=== PATIENT | female | born 1975 | race Two or more races ===

== ENCOUNTER 2020-12-17 10:32 | Outpatient (AMBR) | payer MEDICAID, SELFPAY ==
--- NOTE | 2020-12-15 09:56 | PT.OIERPT ---
PT OP Initial Eval Patient Information Visit Reasons: RIGHT KNEE POST OP Medical Diagnosis: Z96.657 Treatment Dx #1: s/p R TKA Start of Care: 12/15/20 Date of Onset: 09/25/20 Initial Assessment Subjective Pt is 45 yr old female s/p R TKA about 10 weeks ago presents to therapy ambulating without assistive device. She reports a pulling on the back of the knee and pain and she points to the medial and lateral joint lines and below the incision. The knee swells up toward the end of the day. PMH: chronic pain syndrome, DJD B knees Pt goal: to bend the knee better and for it not to swell Objective R knee AROM: Extension: full Flexion 92 deg Strength MMT Quads: 4-/5 Hamstrings: 4-/5 SLR: 75 deg Incision: clean, no redness, drainage Assessment Pt presentation consistent with post op R TKA with decreased knee flexion ROM and strength. Pt has decreased ability to squat and has quad weakness. Pt requires skilled therapy to improve knee flexion ROM and quad strength and has fair rehab potential potentially limited by adhesions and pain at end-range. She may benefit from static progressive ROM device to improve flexion ROM. Short Term and Internet Assessor Goals 1. Ind with HEP 2. Improved knee flexion ROM to 115 deg 3. Improved quad and hamstring strength to 4+/5 4. Pt will squat to 50% depth x10 with min knee pain Treatment Plan 1. Manual therapy 2. Therex 3. Modalities as indicated, moist heat, ice, estim Frequency and Duration 2x a week for 8 weeks Certification Dates: 12/15/20 to 03/17/21 Office Procedures PT Procedures PT Date of Service: 12/15/20 OP PT Eval Mod Complex 30 minutes: Yes
--- NOTE | 2020-12-17 18:33 | PT.ODAYNRPT ---
PT Outpatient Daily Note Date of Service: 12/17/20 OP Daily Note Visit Reasons: RIGHT KNEE POST OP Outpatient Physical Therapy Treatment Date: 12/17/20 Subjective: Pt reports that the back of the knee and gastrocs feel tight Objective: See F/S for therex MT: STM posterior knee and proximal gastrocs, PPM knee flexion to first resistance x12' total Assessment: Pt has moderate tissue irritability with therex and manual therapy with overpressure into knee flexion. Plan: Continue per POC Length of Time (minutes) of Treatment: 30 Minutes Office Procedures PT Procedures PT Date of Service: 12/15/20 OP PT Eval Mod Complex 30 minutes: Yes PT Procedures PT Date of Service: 12/17/20 Therapeutic Exercise 15 minutes: Yes Manual Winch Operator 15 minutes: Yes
== END 2021-01-12 23:59 | disposition home or self-care (01) ==
PROVIDERS: PCP Physician Assistant; Referring Provider Physician Assistant; Visit Provider Physician Assistant
DX: M25.561 Pain in right knee (principal); M62.81 Muscle weakness (generalized); G89.4 Chronic pain syndrome
CPT/HCPCS: 97110; 97140; 97162

== ENCOUNTER 2024-03-26 14:17 | Outpatient (AMB) | payer MEDICARE, MEDICAID, SELFPAY ==
[2024-03-26 14:39] VITALS: BP 159/103; PULSE 80; RESP 18; TEMP 36.2; O2SAT 97; BMI 41.7
--- NOTE | 2024-03-26 14:39 | ORTHONT_ITS ---
Vital signs 03/26/24 14:39 Height 1.68 m Height Method Stated Weight 117.707 kg Weight Measurement Method Standing Scale BMI 41.7 BP 159/103 H Blood Pressure Source Automatic Cuff Blood Pressure Location Right Upper Arm Position Sitting Respiration 18 Pulse 80 Pulse Source Monitor Temp 97.2 F Temp Source Temporal Artery Scan Pulse Oximetry (%) 97 Oxygen Delivery Method Room Air Med/Allergies Allergies & Medications Allergies cat dander Allergy (Severe, Verified 03/26/24 14:40) Difficulty Breathing Medication Reconciliation alprazolam 0.5 mg tablet (Xanax) 0.5 mg PO BID 07/18/20 [History Confirmed 03/26/24] omeprazole 40 mg capsule,delayed release 40 mg PO AC 08/31/21 [History Confirmed 03/26/24] duloxetine 30 mg capsule,delayed release (Cymbalta) 30 mg PO BID 08/22/22 [History Confirmed 03/26/24] prazosin 1 mg capsule 1 mg PO QPM 05/29/23 [History Confirmed 03/26/24] pregabalin 150 mg capsule (Lyrica) 150 mg PO TID 05/29/23 [History Confirmed 03/26/24] acetaminophen 500 mg tablet (Acetaminophen Extra Strength) 1,000 mg (2 x 500 mg) PO Q6H PRN pain #90 tabs 08/30/23 [Rx Confirmed 03/26/24] aspirin 81 mg tablet,delayed release 81 mg PO BID #60 tabs 08/30/23 [Rx Confirmed 03/26/24] doxycycline hyclate 100 mg tablet 100 mg PO BID #14 tabs 08/30/23 [Rx Confirmed 03/26/24] gabapentin 300 mg capsule 300 mg PO .qhs #30 caps 08/30/23 [Rx Confirmed 03/26/24] sennosides 8.6 mg-docusate sodium 50 mg tablet (Senna-S) 1 tab-cap PO QDAY #30 tabs 08/30/23 [Rx Confirmed 03/26/24] sulfamethoxazole 800 mg-trimethoprim 160 mg tablet (Bactrim DS) 1 tab PO BID #14 tabs 10/09/23 [Rx Confirmed 03/26/24] sulfamethoxazole 800 mg-trimethoprim 160 mg tablet (Bactrim DS) 1 tab PO Q12H #20 tabs 10/10/23 [Rx Confirmed 03/26/24] naproxen 500 mg tablet 500 mg PO BID #60 tabs 12/12/23 [Rx Confirmed 03/26/24] tramadol 50 mg tablet 50 mg PO Q8H PRN pain #21 tabs 03/05/24 [Rx Confirmed 03/26/24] acetaminophen 300 mg-codeine 30 mg tablet 1 tab PO Q6H PRN pain #28 tabs 03/26/24 [Rx Confirmed 03/26/24] Subjective Visit Visit for: follow up visit and knee Immunization / Flu Flu Vaccine in the Last 12 Months: No Flu Vaccine Exclusion Criteria: No Exclusion Criteria History of Present Illness Chief complaint: LEFT KNEE PAIN Lisa calls earlier today after a fall. She reports significant knee pain. We got x-rays and it showed recurrent dislocation of her left knee. She is a history of patellar instability. We sent her Tylenol 3 to her pharmacy. The pharmacist refused to fill this for some reason. They stated it was because she was on stronger medication after surgery. We discussed with her that she needs a referral to a university or tertiary care center and is have had quite a little bunch of issues with her. Initially she had issues with compliance and she is desperate for another option. Pain Pain level (0-10): 10 Pain duration: ALL DAY Pain location: anterior Pain quality: sharp, dull, aching, burning, shocking, electric and tingling Pain timing: increases with activity Ambulatory data Ambulatory device: cane Treatments Improvement with previous injections: No Improvement with PT: No Improvement with NSAIDS: n/a Review of Systems Review of Systems: All systems negative unless otherwise noted in HPI. Exam Exam Patient is in no acute distress and is cooperative with the examination today. Patient has a normal mood and affect. Breathing is nonlabored. In no respiratory distress. Bilateral extremities were evaluated and demonstrates sensation intact to light touch. Palpable pedal pulses are present. No significant edema is present. Left knee incision is clean dry and intact. Her knee tracks centrally. She is having range of motion from 0 to 90 degrees. She has increased lateral patellar translation compared to before. The patella Is dislocated and can be relocated with a medial directed force Assessment and Plan Problem List (1) Knee instability: Status: Acute Plan: Patient is a 48-year-old female with knee instability particular of her patella. She underwent a hinged knee replacement for global instability of her knee. Her patella was dislocated at that time. She did well for 4 to 6 weeks and unfo rtunately dislocated. We tried a medial implication and advancement of her quad. She was noncompliant with Immobilization instructions and subsequently dislocated. We have been trying to get her to refer to a university center. I do not have many other options. She already has a hinged knee replacement in her I am hesitant to do a more extreme surgery given her age. I am sending her to a [facility] for a another. (2) Status post total left knee replacement: Status: Acute Office Procedures GNS Level of Care Nursing/Assessment Patient Status: Established Patient Nursing Assessment/Reassesment: Medication Reconciliation, Update PMH in EMR and Vital Signs Coordination of Care: Complex Care and Chronic Disease 1-5, Education Complex Pt/Fam, Consent,records obtained, informed consent, Results/Orders obtained and Staff clarify orders Established Patient Charge Established Patient Point Assignment: 95 Established Patient Point Charge: EP Level 3 (80-115) Past Medical History Past Medical History Have you ever been diagnosed with any of the following: Neurological Problems Cerebrovascular Accident (CVA): No Transient Ischemic Attacks (TIA): No Parkinson's Disease: No Brain Tumor: No Meningitis: No Seizures: No Cerebral Palsy: No Amyotrophic Lateral Sclerosis (ALS/Bhumika Gehrig's): No Paralysis: No Peripheral Neuropathy: No Torres's Palsy: No Subdural Hematoma: No Head Trauma: No Spinal Cord Injury: No Traumatic Brain Injury: No Cardiology Problems Myocardial Infarction: No Cardiac Arrhythmia: No Atrial Fibrillation: No Angina: No Heart Murmur: No Coronary Artery Disease: No Atherosclerotic Heart Disease: No Peripheral Vascular Disease: No Hypercholesterolemia: No Aneurysm: No Congestive Heart Failure: No Congenital Heart Disease: No Valvular Heart Disease: No Rheumatic Fever: No Cardiomyopathy: No Edema: No Pericarditis: No Cellulitis: No Deep Vein Thrombosis: No Hypertension: No Varicose Veins: No Respiratory Problems Chronic Obstructive Pulmonary Disease (COPD): No Asthma: Yes Pneumonia: No Tuberculosis: No Pulmonary Embolism: No Sleep Apnea: No Smoking: Yes Smoking Cessation Counseling: Yes Smoking Exposure: Yes Tobacco Use: Yes Stomache/Intestinal Problems Hepatitis: No Cirrhosis: No Pancreatitis: No Celiac Disease: No Gall Bladder Disease: No Gastrointestinal Bleed: No Esophageal Varices: No Cui's Esophagus: No Colitis: No Ulcerative Colitis: No Diverticulitis: No Ulcer: No Colorectal Cancer: No Irritable Bowel: No Crohn's Disease: No Obstructive Bowel: No Hiatal Hernia: No Hemorrhoids: No Gastroesophageal Reflux Disease: Yes Obesity: Yes Genital/Urinary Problems Renal Disease: No Kidney Stones: Yes Polycystic Kidney Disease: No Neurogenic Bladder: No Inguinal Hernia: No Dialysis: No Prostate Cancer: No Reproductive Problems Breast Cancer: No Endometriosis: No Genital Herpes: No Gonorrhea: No Pelvic Inflammatory Disease: No Previous Pregnancies: Yes Syphilis: No Testicular Cancer: No Uterine Prolapse: No Musculoskeletal Problems Muscular Dystrophy: No Myasthenia Gravis: No Marfan's Syndrome: No Bone Cancer: No Arthritis: Yes Rheumatoid Arthritis: No Osteoporosis: No Degenerative Disk Disease: Yes Gout: No Carpal Tunnel Syndrome: No Fibromyalgia: No Fractures: Yes Degenerative Joint Disease: Yes Osteomyelitis: No Poliovirus: No Head,Eye,Nose,Throat Problems Cataracts: No Glaucoma: No Blind: No Retinal Detachment: No Macular Degeneration: No Chronic Ear Infections: No Eye Prosthesis: No Endocrine Problems Diabetes Mellitus Type 1: No Diabetes Mellitus Type 2: No Hypoglycemia: No [place]'s Syndrome: No Alma's Disease: No Hyperthyroidism: No Hypothyroidism: No Parathyroid Disease: No Pituitary Disease: Yes Systemic Lupus Erythematosus: No Syndrome of Inappropriate Antidiuretic Hormone: No Adrenal Disease: No Graves' Disease: No Blood Problems Anemia: No Leukemia: No Hemophilia: No Thalassemia: No Sickle Cell Disease: No Clotting Problems: No Psychologic Problems Schizophrenia: No Recreational Drug Use: No Bipolar Disorder: No Depression: No Anxiety: Yes Behavior Problems: No Self-Mutilation: No Attention Deficit Disorder: No Attention Deficit Hyperactivity Disorder: No Depression: No Post Traumatic Stress Disorder: Yes Other Problems Hospitalization: Yes Down Syndrome: No Autism: No Developmental Delay: No Shingles: No Falls: No Blood Transfusions: No Blood Transfusion Reaction: No Anesthesia Reactions: No Organ Transplant: No Chemotherapy: No Radiation Therapy: No Hyperbaric Therapy: No MRSA: No VRSA: No Vancomycin-Resistant Enterococci: No Human Immunodeficiency Virus (HIV): No Chicken Pox: Yes Measles: No Mumps: No Rubella (Hebrew Measles): No Pertussis: No Clostridium Difficile: No Cancer: No Cervical Cancer: No Lung Cancer: No Ovarian Cancer: No Surgical History Carotid Endarterectomy: No Coronary Artery Bypass Graft: No Valve Replacement: No Hysterectomy: Yes Pacemaker: No Thyroidectomy: No
== END 2024-03-26 15:07 | disposition home or self-care (01) ==
LOC: HODSRG 14:17
PROVIDERS: PCP Family Medicine; Referring Provider Family Medicine; Supervising Provider Orthopaedic Surgery Adult Reconstructive Orthopaedic Surgery; Visit Provider Orthopaedic Surgery Adult Reconstructive Orthopaedic Surgery
DX: M25.369 Other instability, unspecified knee (principal); S83.10 Unspecified subluxation and dislocation of knee; X58.XXXD Exposure to other specified factors, subsequent encounter; Z96.652 Presence of left artificial knee joint
CPT/HCPCS: 99213; G0463

== ENCOUNTER 2024-05-27 10:59 | Emergency (ER) | payer MEDICARE, MEDICAID, SELFPAY ==
[2024-05-27 11:22] VITALS: BP 149/98; PULSE 68; RESP 20; TEMP 37; O2SAT 98; BMI 40.6
--- NOTE | 2024-05-27 11:22 | XR_ITS ---
Examination: CT abdomen and pelvis without contrast. Coronal 3-D reconstructions. Sagittal 2-D reconstructions. Date and time of exam:May 27, 2024 at 1257 hours Comparison April 03, 2022 INDICATIONS: Onset left-sided flank pain beginning today, diagnosis kidney stones on CT abdomen pelvis April 03, 2022 CTDI: vol (mGy): 15 DLP: (900 Technique: Axial images of the abdomen have been obtained, 3 mm slice thickness Intravenous contrast material has not been administered. Low dose protocols were performed. One or more of the following dose reduction techniques were used; automated exposure control, adjustment of the mA and/or KV according to patient size, use of iterative reconstruction technique. Findings: No liver or splenic lesions No gallstones No pancreatic mass Bilateral renal calculi, the largest right kidney 4 mm largest left kidney 4 mm Moderate bilateral renal parenchymal scar formation No pancreatic mass Aorta normal size Normal appendix No bowel obstruction No bladder mass or bladder calculi No pelvic mass Moderate disc narrowing at the lower 3 lumbar levels IMPRESSION: Bilateral nonobstructing renal calculi Moderate bilateral renal parenchymal scar formation No ureteral calculi or hydronephrosis Normal appendix
--- NOTE | 2024-05-27 11:23 | EDNOTE_ITS ---
ED General RME/HPI General Chief complaint: Abdominal Pain Stated complaint: LEFT ABD PAIN RADIATING TO BACK W/ VOMITING Time Seen by Provider: 05/27/24 11:18 Arrival date/time: 05/27/24 10:59 CC: Nausea vomiting diarrhea flank pain HPI nausea vomit diarrhea x 3 days flank pain x 18 hours. No prior history of similar events also painful urination but no blood in the urine. Related Data Home Medications ?Medication ?Instructions ?Recorded ?Confirmed alprazolam 0.5 mg tablet (Xanax) 0.5 mg PO BID 07/18/20 03/26/24 omeprazole 40 mg capsule,delayed 40 mg PO AC 08/31/21 03/26/24 release duloxetine 30 mg capsule,delayed 30 mg PO BID 08/22/22 03/26/24 release (Cymbalta) prazosin 1 mg capsule 1 mg PO QPM 05/29/23 03/26/24 pregabalin 150 mg capsule (Lyrica) 150 mg PO TID 05/29/23 03/26/24 Previous Rx's ?Medication ?Instructions ?Recorded acetaminophen 500 mg tablet 1,000 mg (2 x 500 mg) PO Q6H PRN 08/30/23 (Acetaminophen Extra Strength) pain #90 tabs aspirin 81 mg tablet,delayed 81 mg PO BID #60 tabs 08/30/23 release doxycycline hyclate 100 mg tablet 100 mg PO BID #14 tabs 08/30/23 gabapentin 300 mg capsule 300 mg PO .qhs #30 caps 08/30/23 sennosides 8.6 mg-docusate sodium 1 tab-cap PO QDAY #30 tabs 08/30/23 50 mg tablet (Senna-S) sulfamethoxazole 800 1 tab PO BID #14 tabs 10/09/23 mg-trimethoprim 160 mg tablet (Bactrim DS) sulfamethoxazole 800 1 tab PO Q12H #20 tabs 10/10/23 mg-trimethoprim 160 mg tablet (Bactrim DS) naproxen 500 mg tablet 500 mg PO BID #60 tabs 12/12/23 tramadol 50 mg tablet 50 mg PO Q8H PRN pain #21 tabs 03/05/24 acetaminophen 300 mg-codeine 30 mg 1 tab PO Q6H PRN pain #28 tabs 03/26/24 tablet ketorolac 10 mg tablet 10 mg PO Q8H #7 tabs 05/27/24 ondansetron 4 mg disintegrating 4 mg PO Q8H #10 tabs 05/27/24 tablet Allergies Allergy/AdvReac Type Severity Reaction Status Date / Time cat dander Allergy Severe Difficulty Verified 05/27/24 11:02 Breathing Review of Systems Review of Systems Narrative Review of Systems: GEN: No fever, no chills, no weight loss EYES: No discharge, no visual changes, no pain HEENT: No ear pain, no congestion, no sore throat PULM: No shortness of breath, no cough, no congestion CV: No chest pain, no dyspnea on exertion, no palpitations GI: No nausea, no vomiting, no diarrhea, + pain, no constipation : No frequency, no urgency, no dysuria MUSC/SKEL: No joint pain, + back pain SKIN: No rash PSYCH: No hallucinations, no depression HEME/LYMPH: No easy bleeding or bruising tendencies NEURO: No weakness, no headache Past Medical History Past Medical History NEUROLOGIC: Negative Neurological Disorders, Cerebrovascular Accident, Transient Ischemic Attacks (TIA), Parkinson's Disease, Brain Tumor, Meningitis, Seizures, Cerebral Palsy, Amyotrophic Lateral Sclerosis (ALS/Bhumika Gehrig's), Paralysis, Peripheral Neuropathy, Torres's Palsy, Subdural Hematoma, Head Trauma, Spinal Cord Injury or Traumatic Brain Injury CARDIAC: Negative Cardiac Disorders, Myocardial Infarction, Cardiac Arrhythmia, Atrial Fibrillation, Angina, Heart Murmur, Coronary Artery Disease, Atherosclerotic Heart Disease, Peripheral Vascular Disease, Hypercholesterolemia, Aneurysm, Congestive Heart Failure, Congenital Heart Disease, Valvular Heart Disease, Rheumatic Fever, Cardiomyopathy, Edema, Pericarditis, Cellulitis, Deep Vein Thrombosis, Hypertension or Varicose Veins RESPIRATORY: Positive Asthma, Smoking, Smoking Cessation Counseling, Smoking Exposure and Tobacco Use; Negative Chronic Obstructive Pulmonary Disease (COPD), Pneumonia, Tuberculosis, Pulmonary Embolism or Sleep Apnea GASTROINTESTINAL: Positive Gastrointestinal Disorders, Gastroesophageal Reflux Disease and Obesity; Negative Hepatitis, Cirrhosis, Pancreatitis, Celiac Disease, Gall Bladder Disease, Gastrointestinal Bleed, Esophageal Varices, Cui's Esophagus, Colitis, Ulcerative Colitis, Diverticulitis, Ulcer, Colorectal Cancer, Irritable Bowel, Crohn's Disease, Obstructive Bowel, Hiatal Hernia or Hemorrhoids GENITOURINARY: Positive Genitourinary Disorders and Kidney Stones; Negative Renal Disease, Polycystic Kidney Disease, Neurogenic Bladder, Inguinal Hernia, Dialysis or Prostate Cancer REPRODUCTIVE: Positive Previous Pregnancies; Negative Breast Cancer, Endometriosis, Genital Herpes, Gonorrhea, Pelvic Inflammatory Disease, Syphilis, Testicular Cancer or Uterine Prolapse MUSCULOSKELETAL: Positive Musculoskeletal Disorders, Arthritis, Degenerative Disk Disease, Fractures and Degenerative Joint Disease; Negative Muscular Dystrophy, Myasthenia Gravis, Marfan's Syndrome, Bone Cancer, Rheumatoid Arthritis, Osteoporosis, Gout, Carpal Tunnel Syndrome, Fibromyalgia, Osteomyelitis or Poliovirus ENT: Negative Cataracts, Glaucoma, Blind, Retinal Detachment, Macular Degeneration, Ear Infection, Head Trauma or Eye Prosthesis ENDOCRINE: Positive Endocrine Disorders and Pituitary Disease; Negative Diabetes Mellitus Type 1, Diabetes Mellitus Type 2, Hypoglycemia, Cherry's Syndrome, [place]'s Disease, Hyperthyroidism, Hypothyroidism, Parathyroid Disease, Systemic Lupus Erythematosus, Syndrome of Inappropriate Antidiuretic Hormone (SIADH), Adrenal Disease or Graves' Disease HEMATOLOGIC: Negative Blood Disorders, Anemia, Leukemia, Hemophilia, Thalassemia, Sickle Cell Disease or Clotting Problems PSYCHO/SOCIAL: Positive Anxiety and Post Traumatic Stress Disorder; Negative Psychiatric Problems, Schizophrenia, Recreational Drug Use, Bipolar Disorder, Depression, Behavior Problems, Self-Mutilation, Attention Deficit Disorder, Attention Deficit Hyperactivity Disorder or Depression OTHER HISTORY: Positive Hospitalization and Chicken Pox; Negative Autoimmune Disease, Down Syndrome, Autism, Developmental Delay, Shingles, Falls, Blood Transfusions, Blood Transfusion Reaction, Anesthesia Reactions, Organ Transplant, Chemotherapy, Radiation Therapy, Hyperbaric Therapy, MRSA, VRSA, Vancomycin-Resistant Enterococci, Human Immunodeficiency Virus (HIV), Measles, Mumps, Rubella (Pashto Measles), Pertussis, Clostridium Difficile, Cancer, Breast Cancer, Cervical Cancer, Colorectal Cancer, Lung Cancer, Ovarian Cancer, Prostate Cancer or Testicular Cancer Family History FAMILY HISTORY: Negative Family Psychiatric Problems, Family Respiratory Disorders, Family Cardiac Disorders, Family Gastrointestinal Problems, Family Cancer, Family Surgery or Family Anesthesia Reaction Surgical History SURGICAL: Positive Joint Replacement, Open Reduction Internal Fixation, Arthroscopy, Hysterectomy and Tubal Ligation; Negative Cardiac Surgery, Open Heart Surgery, Coronary Artery Bypass Graft, Valve Replacement, Vascular Surgery, Coronary Stent, Cardiac Catheterization, Pacemaker, Angiogram, Auto Implanted Cardiovert Defib, Carotid Endarterectomy, Endocrine Surgery, Thyroidectomy, Ear Surgery, Tympanostomy Tube, Eye Surgery, Nose Surgery, Oral Surgery, Tonsillectomy, Adenoidectomy, Cochlear Implant, Corneal Transplant, Throat Surgery, Abdominal Surgery, Tracheostomy, Gastric Bypass Surgery, Gastrostomy, Bowel Surgery, Nephrectomy, Transurethral Resection, Amputation, Neurologic Surgery, Brain Shunt, Mastectomy, Lumpectomy, Section or Organ Transplant Social History SMOKING STATUS: Never smoker SECOND HAND EXPOSURE: No ED Exam Narrative Physical exam: [General: Morbidly obese, not in any acute distress Head normocephalic HEENT: Eyes: Pupils are PERRLA EOMs intact. All other subsystems of HEENT within acceptable limits Neck is supple nontender Chest equal chest rise nontender to palpation Respiratory: Clear to auscultation no wheezes crackles or rubs CV: Rate rhythm is regular no murmurs rubs or clicks Abdomen is grossly distended secondary to body habitus soft, left lower quadrant tenderness with palpation no reflexive guarding no rebound tenderness no right sided or left upper quadrant pain with deep palpation. Back: No CVA tenderness no spinous process tenderness from cervical spine thoracic and lumbar spine Skin: Intact no petechiae rash induration ulceration or crepitus Extremities: Moving all extremity against resistance cap refill less than 2 seconds neurosensory intact Neuro: Awake alert oriented x3 Glascow coma 15 no focal deficits] Course Quality Measures none Orders Category Date Time Status CT abdomen pelvis wo con Stat Exams 05/27/24 11:22 Completed CBC Stat Lab 05/27/24 11:30 Completed Comprehensive Metabolic Panel Stat Lab 05/27/24 11:30 Completed Drug Screen,Urine Stat Lab 05/27/24 11:52 Received HCG Qualitative,Urine Stat Lab 05/27/24 11:52 Completed Lipase Stat Lab 05/27/24 11:30 Completed Urinalysis Stat Lab 05/27/24 11:52 Completed Vital Signs Vital signs: Vital Signs Temperature 98.6 F 05/27/24 11:22 Pulse Rate 68 05/27/24 11:22 Respiratory Rate 20 05/27/24 11:22 Blood Pressure 149/98 H 05/27/24 11:22 Pulse Oximetry (%) 98 05/27/24 11:22 Oxygen Delivery Method Room Air 05/27/24 11:22 [facility] Patient data External records reviewed:: [facility] previous records Clinical information provided by:: patient Social determinants that could affect healthcare access:: none Patient has the following chronic illnesses:: Anxiety depression How is presenting disease/condition affected by chronic disease/condition?: u neffected by Evaluation data The following diagnostics were reviewed and interpreted by me:: lab results and radiology exam(s) Lab and/or radiology exams considered but not ordered:: CBC shows a mild leukocytosis of 12.5 no anemia thrombocytopenia CMP shows no significant electrolyte imbalances renal impairment transaminitis or T. bili elevation Urine is negative CT of the abdomen shows no acute finding including urolithiasis hydroureter or hydronephrosis. Interpretation Summary: Patient will be discharged home with nausea medicine and pain medication if there is a worsening of symptoms return the emergency room immediately for further evaluation. Medications Medications considered but not ordered:: None Medication administrations:: None Consultations Consultation(s) initiated? (list below): No Diagnosis Differential Diagnosis ED Complaint MDM: Urolithiasis hydroureter hydronephrosis Most likely diagnosis given after review of the tests above:: Mid back low back pain Admission Indicated Admission indicated?: not indicated Explain why admission is indicated or not indicated:: Stable for outpatient follow-up Admission Request Was there a request for admission?: No Disposition Plan Disposition Plan: Discharge Discharge Attestation Discharge Attestation: The patient and all family members were given an opportunity to ask questions and understood the discharge instructions. Discharge instructions specifically effects, indications for sooner follow up or return to the emergency department, and the expected course of current diagnosis. Patient condition: Stable Medical Decision Making Differential Diagnosis Differential Diagnosis: Urolithiasis hydroureter hydronephrosis Lab Data 05/27/24 11:30 05/27/24 11:30 Labs: Lab Results 05/27/24 05/27/24 Range/Units 11:30 11:52 WBC 12.6 H (3.6-11.0) Thou/mm3 RBC 4.13 (4.00-5.20) Miln/mm3 Hgb 11.6 L (12.0-16.0) g/dL Hct 35.7 L (36.0-46.0) % MCV 86 (80-100) fL MCH 28.1 (25.0-35.0) pg MCHC 32.5 (31.0-37.0) g/dl RDW Std Deviation 51.0 H (36.4-46.3) fL Plt Count 352 (140-440) Thou/mm3 Neut % (Auto) 50 (37-80) % Lymph % (Auto) 38 (10-50) % [place] % (Auto) 8 (0-12) % Eos % (Auto) 3 (0-10) % Baso % (Auto) 1 (0-2.5) % Neut # (Auto) 6.3 (1.8-7.7) Thou/mm3 Lymph # (Auto) 4.8 (1.0-4.8) Thou/mm3 [place] # (Auto) 1.0 H (0.0-0.8) Thou/mm3 Eos # (Auto) 0.3 (0.0-0.5) Thou/mm3 Baso # (Auto) 0.1 (0.0-0.2) Thou/mm3 Immature Gran # (Auto) 0.06 H (0.00-0.00) Thou/mm3 Absolute Nucleated RBC 0.00 (0.00-0.00) Thou/mm3 Immature Gran % 1 H (0-0) % Nucleated RBC % 0 (0) /100 WBC Sodium 140 (136-145) mMol/L Potassium 3.5 (3.4-5.1) mMol/L Chloride 106 (98-107) mMol/L Carbon Dioxide 29.2 (20.0-31.0) mMol/L Anion Gap 5 L (7-16) BUN 10 (9-23) mg/dL Creatinine 1.0 (0.6-1.3) mg/dL Estim Creat Clear Calc 88.3 (>60) mL/min eGFR > 60 (60 - ) See Note BUN/Creatinine Ratio 10 L (12-20) Ratio Glucose 81 (74-106) mg/dL Calculated Osmolality 277 (275-295) Calcium 9.4 (8.3-10.6) mg/dL Corrected Calcium 9.4 (8.5-10.1) mg/dL Total Bilirubin 0.2 L (0.3-1.2) mg/dL AST 13 (0-34) U/L ALT 11 (10-49) U/L Alkaline Phosphatase 121 H (46-116) U/L Total Protein 7.0 (5.7-8.2) gm/dL Albumin 4.6 (3.5-5.0) gm/dL Globulin 2.4 (2.3-3.5) gm/dL Albumin/Globulin Ratio 1.9 (1.2-2.2) Lipase 27 (12-53) U/L Ur Collection Type Clean Catch Urine Color Lt-Yellow (Lt Yel-Yel) Urine Clarity Clear (Clear/Hazy) Urine pH 7.0 (5.0-7.0) Ur Specific [place] 1.014 (1.001-1.035) Urine Protein Negative (Neg - Trace) Urine Glucose (UA) Negative (Negative) Urine Ketones Negative (Negative) Urine Blood Negative (Negative) Urine Nitrite Negative (Negative) Urine Bilirubin Negative (Negative) Urine Urobilinogen (Auto) Negative (0.0-1.0) mg/dL Ur Leukocyte Esterase Negative (Negative) Urine RBC 2 (0-3) /hpf Urine WBC 1 (0-5) /hpf Ur Squamous Epith Cells 3 (0-5) /hpf Urine Bacteria None (None) Urine HCG, Qual Negative Discharge Plan Plan Patient Disposition: HOME (Self Care) Patient condition on transfer: Stable Prescriptions/Referrals Prescriptions/Med Rec: New ketorolac 10 mg tablet 10 mg PO Q8H Qty: 7 0RF Rx Instructions: maximum total duration of 5 days from all oral, intranasal, or parenteral formulations ondansetron 4 mg tablet,disintegrating 4 mg PO Q8H Qty: 10 0RF No Action duloxetine [Cymbalta] 30 mg capsule,delayed release(DR/EC) 30 mg PO BID sulfamethoxazole-trimethoprim [Bactrim DS] 800-160 mg tablet 1 tab PO BID Qty: 14 0RF naproxen 500 mg tablet 500 mg PO BID Qty: 60 0RF acetaminophen-codeine 300-30 mg tablet 1 tab PO Q6H PRN (Reason: pain) Qty: 28 0RF sulfamethoxazole-trimethoprim [Bactrim DS] 800-160 mg tablet 1 tab PO Q12H Qty: 20 0RF tramadol 50 mg tablet 50 mg PO Q8H PRN (Reason: pain) Qty: 21 0RF omeprazole 40 mg capsule,delayed release(DR/EC) 40 mg PO AC alprazolam [Xanax] 0.5 mg Tablet 0.5 mg PO BID prazosin 1 mg Capsule 1 mg PO QPM pregabalin [Lyrica] 150 mg Capsule 150 mg PO TID sennosides-docusate sodium [Senna-S] 8.6-50 mg tablet 1 tab-cap PO QDAY Qty: 30 0RF aspirin 81 mg tablet,delayed release (DR/EC) 81 mg PO BID Qty: 60 0RF acetaminophen [Acetaminophen Extra Strength] 500 mg tablet 1,000 mg PO Q6H MDD 1000mg PRN (Reason: pain) Qty: 90 0RF gabapentin 300 mg capsule 300 mg PO .qhs Qty: 30 0RF doxycycline hyclate 100 mg tablet 100 mg PO BID Qty: 14 0RF Referrals: Peyton Webb PA-C [Primary Care Provider] - In 1 week Problem List Clinical Impression: Flank pain Patient/Caregiver Discharge Instructions Other Activity Instructions:: Laboratory results and CT indicate no acute finding that requires emergent or immediate intervention take the medications for temporary pain relief and nausea relief if there is a worsening of symptoms follow-up with your primary care doctor or if you spike a fever return the emergency room for reevaluation. Education Materials: Abdominal Pain, ED Back Pain (Acute or Chronic) Print Language: Hebrew Stand Alone Forms: Caitlin Award Info., Patient Portal Info Letter, Work/School Release PA/[place] Supervising Physician PA/AUGUST Supervising Physician: Emmett Chua ENP
[2024-05-27 11:46] LABS: Basophils # (Auto) 0.1 Thou/mm3 (0.0-0.2); Basophils % (Auto) 1 % (0-2.5); Eosinophils # (Auto) 0.3 Thou/mm3 (0.0-0.5); Eosinophils % (Auto) 3 % (0-10); Hematocrit 35.7 % (36.0-46.0); Hemoglobin 11.6 g/dL (12.0-16.0); Immature Granulocytes % (Auto) 1 % (0-0); Immature Granulocytes Auto 0.06 Thou/mm3 (0.00-0.00); Lymphocytes # (Auto) 4.8 Thou/mm3 (1.0-4.8); Lymphocytes % (Auto) 38 % (10-50); Mean Corpuscular HGB Conc 32.5 g/dl (31.0-37.0); Mean Corpuscular Hemoglobin 28.1 pg (25.0-35.0); Mean Corpuscular Volume 86 fL (80-100); Monocytes % (Auto) 8 % (0-12); Neutrophils # (Auto) 6.3 Thou/mm3 (1.8-7.7); Neutrophils % (Auto) 50 % (37-80); Nucleated Red Blood Cell % 0 /100 WBC (0); Platelet Count 352 Thou/mm3 (140-440); Red Blood Count 4.13 Miln/mm3 (4.00-5.20); White Blood Count 12.6 Thou/mm3 (3.6-11.0)
[2024-05-27 11:56] LABS: Collection Type, Urine Clean Catch
[2024-05-27 12:02] LABS: Alanine Aminotransferase 11 U/L (10-49); Albumin, Serum 4.6 gm/dL (3.5-5.0); Albumin/Globulin Ratio 1.9 (1.2-2.2); Alkaline Phosphatase 121 U/L (46-116); Anion Gap 5 (7-16); Aspartate Amino Transferase 13 U/L (0-34); BUN/Creatinine Ratio 10 Ratio (12-20); Bilirubin,Total 0.2 mg/dL (0.3-1.2); Blood Urea Nitrogen 10 mg/dL (9-23); Calcium 9.4 mg/dL (8.3-10.6); Calcium (Corrected) 9.4 mg/dL (8.5-10.1); Carbon Dioxide 29.2 mMol/L (20.0-31.0); Chloride 106 mMol/L (98-107); Estimated Creatinine Clearance 88.3 mL/min (>60); Globulin 2.4 gm/dL (2.3-3.5); Glucose 81 mg/dL (74-106); Lipase 27 U/L (12-53); Osmolality,Calculated 277 (275-295); Potassium 3.5 mMol/L (3.4-5.1); Sodium 140 mMol/L (136-145); eGFR > 60 See Note
[2024-05-27 12:05] LABS: HCG Qualitative,Urine Negative
[2024-05-27 12:08] LABS: Bilirubin,Urine Negative (Negative); Blood,Urine Negative (Negative); Clarity,Urine Clear (Clear/Hazy); Color,Urine Lt-Yellow (Lt Yel-Yel); Glucose, Urine Negative (Negative); Ketones,Urine Negative (Negative); Leukocyte Esterase,Urine Negative (Negative); Nitrite,Urine Negative (Negative); Protein,Urine Negative (Neg - Trace); RBC,Urine 2 /hpf (0-3); Specific Gravity,Urine 1.014 (1.001-1.035); Squamous Epithelial Cell,Urine 3 /hpf (0-5); Urobilinogen,Urine Negative mg/dL (0.0-1.0); WBC,Urine 1 /hpf (0-5)
[2024-05-27] MEDS: KETOROLAC INJ 60 MG/2 ML VIAL 15 MG IM (13:53)
[2024-05-27 13:58] LABS: Amphetamine/Methamp Scrn,U Negative (Negative); Barbiturate Screen,Urine Negative (Negative); Benzodiazepines Screen,Urine Positive (Negative); Benzoylecgonine Screen, Ur Negative (Negative); Fentanyl Screen,Urine Negative (Negative); Opiate Screen,Urine Positive (Negative); THC Screen,Urine Positive (Negative)
== END 2024-05-27 14:04 | disposition home or self-care (01) ==
PROVIDERS: Registered Nurse General Practice; Emergency Provider Emergency Medicine; PCP Physician Assistant
DX: R10.9 Unspecified abdominal pain (principal); R11.2 Nausea with vomiting, unspecified; R19.7 Diarrhea, unspecified
CPT/HCPCS: 36415; 74176; 80053; 80307; 81001; 81025; 83690; 85025; 96372; 99284; J1885

== ENCOUNTER 2024-06-04 12:26 | Emergency (ER) | payer MEDICARE, MEDICAID, SELFPAY ==
--- NOTE | 2024-06-04 12:28 | EKG_ITS ---
[facility] Test Date: 2024-06-04 Pat Name: JÚNIOR WALDRON Department: Room: - Gender: Female Research Aide: : 1975 Requested By: ED Temporary Provider Order Number: [id number] Reading MD: ED Temporary Provider Measurements Intervals [place] Rate: 69 P: 38 DC: 160 QRS: 50 QRSD: 83 T: 54 QT: 355 QTc: 383 Interpretive Statements SINUS RHYTHM LOW QRS VOLTAGE IN PRECORDIAL LEADS [QRS DEFLECTION < 1.0 mV IN CHEST LEADS] NONSPECIFIC T-WAVE ABNORMALITY Compared to ECG 07/18/2023 08:36:22 Low QRS voltage now present T-wave abnormality now present /store/S0/[id number]/ecg/[id number].pdf
--- NOTE | 2024-06-04 12:35 | XR_ITS ---
Examination: PA lateral chest 2 views TECHNIQUE: Upright PA lateral chest 2 views Exam date and time: June 04, 2024 1253 hours INDICATIONS: Chest pain dizziness beginning 4 days ago. FINDINGS: Normal heart size Lungs are clear Moderate hyperexpansion No pneumonia or pulmonary edema IMPRESSION: COPD No pneumonia or pulmonary edema
--- NOTE | 2024-06-04 12:36 | PD.EDRME ---
Rapid Medical Screening Exam RME Arrival date/time: 06/04/24 12:26 48-year-old female presents to the emergency department complaints of dizziness after hitting her head Chief Complaint: Dizziness
[2024-06-04 12:38] VITALS: BP 147/86; PULSE 87; RESP 17; TEMP 36.9; O2SAT 98; BMI 41.9
[2024-06-04] MEDS: MECLIZINE HCL 25 MG TABLET 50 MG PO (13:21)
[2024-06-04 13:32] LABS: Basophils # (Auto) 0.1 Thou/mm3 (0.0-0.2); Basophils % (Auto) 1 % (0-2.5); Eosinophils # (Auto) 0.7 Thou/mm3 (0.0-0.5); Eosinophils % (Auto) 6 % (0-10); Hematocrit 35.2 % (36.0-46.0); Hemoglobin 11.5 g/dL (12.0-16.0); Immature Granulocytes % (Auto) 0 % (0-0); Immature Granulocytes Auto 0.03 Thou/mm3 (0.00-0.00); Lymphocytes # (Auto) 3.7 Thou/mm3 (1.0-4.8); Lymphocytes % (Auto) 33 % (10-50); Mean Corpuscular HGB Conc 32.7 g/dl (31.0-37.0); Mean Corpuscular Hemoglobin 28.1 pg (25.0-35.0); Mean Corpuscular Volume 86 fL (80-100); Monocytes # (Auto) 0.7 Thou/mm3 (0.0-0.8); Monocytes % (Auto) 7 % (0-12); Neutrophils # (Auto) 5.9 Thou/mm3 (1.8-7.7); Neutrophils % (Auto) 53 % (37-80); Nucleated Red Blood Cell % 0 /100 WBC (0); Platelet Count 384 Thou/mm3 (140-440); RDW Standard Deviation 51.6 fL (36.4-46.3); Red Blood Count 4.09 Miln/mm3 (4.00-5.20); White Blood Count 11.2 Thou/mm3 (3.6-11.0)
[2024-06-04 14:11] LABS: Alanine Aminotransferase < 7 U/L (10-49); Albumin, Serum 4.4 gm/dL (3.5-5.0); Albumin/Globulin Ratio 1.8 (1.2-2.2); Alkaline Phosphatase 117 U/L (46-116); Anion Gap 5 (7-16); Aspartate Amino Transferase < 10 U/L (0-34); BUN/Creatinine Ratio 10 Ratio (12-20); Bilirubin,Total < 0.2 mg/dL (0.3-1.2); Blood Urea Nitrogen 10 mg/dL (9-23); Calcium 9.4 mg/dL (8.3-10.6); Calcium (Corrected) 9.4 mg/dL (8.5-10.1); Carbon Dioxide 24.4 mMol/L (20.0-31.0); Chloride 112 mMol/L (98-107); Estimated Creatinine Clearance 89.9 mL/min (>60); Globulin 2.5 gm/dL (2.3-3.5); Glucose 115 mg/dL (74-106); Osmolality,Calculated 281 (275-295); Potassium 3.8 mMol/L (3.4-5.1); Sodium 141 mMol/L (136-145); Total Protein 6.9 gm/dL (5.7-8.2); Troponin I < 0.002 ng/mL (0.0-0.045); eGFR > 60 See Note
[2024-06-04 16:02] VITALS: BP 126/88; PULSE 69; RESP 20; TEMP 36.6; O2SAT 98
--- NOTE | 2024-06-04 16:05 | PC.NURSE ---
ME (TRIAGE NURSE) HEARD SHE FELL. LOKKED AND FOUND PT ON THE FLOOR BY A WHEELCHAIR. FAMILY WITH PT STATED SHE STOOD UP (TO GO TO THE BATHROOM) AND FELL HITTING BACK OF HEAD. FAMILY STATES WHEELCHAIR DID NOT TIP OVER. PT WITH C/O PAIN TO BACK OF HEAD AND BOTH KNEES (HAS CHRINIC KNEE PAIN ALSO). PT SAYS I TOLD YOU I WAS DIZZY. DENIES PAIN TO BACK OR NECK. ASSISTED UP TO WHEELCHAIR AND ASSISTED TO BATHROOM TO VOID.
--- NOTE | 2024-06-04 16:16 | XR_ITS ---
Examination: CT brain head without contrast. 2-D sagittal coronal reconstructions Date and time of exam:June 04, 2024 1717 hrs. Comparison 02/03/2023 Indications: Dizziness episodes beginning 4 days ago, patient fell today with injury to the head, head pain and vertigo post injury CTDI: vol (mGy):54.7 DLP: (mGycm):1117 Technique: Multiple CT axial sections of the brain have been obtained, 5 mm slice thickness. Contrast has not been administered. 2-D sagittal, coronal reconstructions have been obtained Low dose protocols were performed. One or more of the following dose reduction techniques were used; automated exposure control, adjustment of the mA and/or KV according to patient size, use of iterative reconstruction technique. Findings: No significant ventricular enlargement. Intra-axial or extra-axial hemorrhage density is not seen. No mass effect or midline shift Basal cisterns are not remarkable. Fourth ventricle is midline. Cranial vault intact. Impression: Negative for acute hemorrhage, mass effect or midline shift Advise clinical correlation follow-up accordingly
[2024-06-04 16:41] LABS: HCG Qualitative,Urine Negative
[2024-06-04 16:58] LABS: Amphetamine/Methamp Scrn,U Negative (Negative); Barbiturate Screen,Urine Negative (Negative); Benzodiazepines Screen,Urine Positive (Negative); Benzoylecgonine Screen, Ur Negative (Negative); Fentanyl Screen,Urine Negative (Negative); Opiate Screen,Urine Positive (Negative); THC Screen,Urine Positive (Negative)
--- NOTE | 2024-06-04 17:06 | XR_ITS ---
Examination: Knee, left , 3 views Technique: Knee AP, lateral, oblique 3 views Date and time of exam: June 04, 2024 1734 hrs. Comparison March 26, 2024 Indications: Injury to the knee today, knee pain. Findings: Total left knee arthroplasty. Acute fracture not seen Again noted complete lateral subluxation of the patella, noted on the March 26, 2024 study Impression: No acute fracture Complete patellar dislocation again demonstrated, consider follow-up axial view of the knee
--- NOTE | 2024-06-04 17:06 | XR_ITS ---
Examination:Left hip AP, lateral, AP pelvis 3 views Technique: Hip AP lateral, AP pelvis, 3 views Exam date and time:June 04, 2024 1734 hrs. Indications: Injury to left hip today, left hip pain. Findings: No hip fracture or hip dislocation Right hip bones of the pelvis intact Impression: No acute hip or pelvic fracture.
--- NOTE | 2024-06-04 17:07 | PD.EDADULT ---
ED General RME/HPI General Chief complaint: Dizziness Stated complaint: DIZZY x 4 DAYS Time Seen by Provider: 06/04/24 16:59 Arrival date/time: 06/04/24 12:26 CC: Dizziness status post fall HPI patient was here for dizziness started x 2 days no prior history of similar events the room is spinning , the patient has had any no falls until today after sitting in the waiting room for approximately 3 hours the patient stood up to get a urine specimen and promptly fell. Patient denies LOC. But is complaining of left knee pain left hip pain left chest pain and headache. Patient denies loss of consciousness altered mental status nausea vomiting or diarrhea. RME / HPI RME / HPI narrative: 06/04/24 12:26 48-year-old female presents to the emergency department complaints of dizziness after hitting her head Related Data Home Medications ?Medication ?Instructions ?Recorded ?Confirmed alprazolam 0.5 mg tablet (Xanax) 0.5 mg PO BID 07/18/20 03/26/24 omeprazole 40 mg capsule,delayed 40 mg PO AC 08/31/21 03/26/24 release duloxetine 30 mg capsule,delayed 30 mg PO BID 08/22/22 03/26/24 release (Cymbalta) prazosin 1 mg capsule 1 mg PO QPM 05/29/23 03/26/24 pregabalin 150 mg capsule (Lyrica) 150 mg PO TID 05/29/23 03/26/24 Previous Rx's ?Medication ?Instructions ?Recorded acetaminophen 500 mg tablet 1,000 mg (2 x 500 mg) PO Q6H PRN 08/30/23 (Acetaminophen Extra Strength) pain #90 tabs aspirin 81 mg tablet,delayed 81 mg PO BID #60 tabs 08/30/23 release doxycycline hyclate 100 mg tablet 100 mg PO BID #14 tabs 08/30/23 gabapentin 300 mg capsule 300 mg PO .qhs #30 caps 08/30/23 sennosides 8.6 mg-docusate sodium 1 tab-cap PO QDAY #30 tabs 08/30/23 50 mg tablet (Senna-S) sulfamethoxazole 800 1 tab PO BID #14 tabs 10/09/23 mg-trimethoprim 160 mg tablet (Bactrim DS) sulfamethoxazole 800 1 tab PO Q12H #20 tabs 10/10/23 mg-trimethoprim 160 mg tablet (Bactrim DS) naproxen 500 mg tablet 500 mg PO BID #60 tabs 12/12/23 tramadol 50 mg tablet 50 mg PO Q8H PRN pain #21 tabs 03/05/24 acetaminophen 300 mg-codeine 30 mg 1 tab PO Q6H PRN pain #28 tabs 03/26/24 tablet ketorolac 10 mg tablet 10 mg PO Q8H #7 tabs 05/27/24 ondansetron 4 mg disintegrating 4 mg PO Q8H #10 tabs 05/27/24 tablet meclizine 50 mg tablet 50 mg PO QDAY #14 tabs 06/04/24 meloxicam 7.5 mg tablet 7.5 mg PO QDAY #10 tabs 06/04/24 Allergies Allergy/AdvReac Type Severity Reaction Status Date / Time cat dander Allergy Severe Difficulty Verified 06/04/24 12:27 Breathing Review of Systems Review of Systems Narrative Review of Systems: GEN: No fever, no chills, no weight loss EYES: No discharge, no visual changes, no pain HEENT: No ear pain, no congestion, no sore throat PULM: No shortness of breath, no cough, no congestion CV: No chest pain, no dyspnea on exertion, no palpitations GI: No nausea, no vomiting, no diarrhea, no pain, no constipation : No frequency, no urgency, no dysuria MUSC/SKEL: No joint pain, no back pain SKIN: No rash PSYCH: No hallucinations, no depression HEME/LYMPH: No easy bleeding or bruising tendencies NEURO: No weakness, no headache,+ dizziness Past Medical History Past Medical History NEUROLOGIC: Negative Neurological Disorders, Cerebrovascular Accident, Transient Ischemic Attacks (TIA), Parkinson's Disease, Brain Tumor, Meningitis, Seizures, Cerebral Palsy, Amyotrophic Lateral Sclerosis (ALS/Bhumika Gehrig's), Paralysis, Peripheral Neuropathy, Torres's Palsy, Subdural Hematoma, Head Trauma, Spinal Cord Injury or Traumatic Brain Injury CARDIAC: Negative Cardiac Disorders, Myocardial Infarction, Cardiac Arrhythmia, Atrial Fibrillation, Angina, Heart Murmur, Coronary Artery Disease, Atherosclerotic Heart Disease, Peripheral Vascular Disease, Hypercholesterolemia, Aneurysm, Congestive Heart Failure, Congenital Heart Disease, Valvular Heart Disease, Rheumatic Fever, Cardiomyopathy, Edema, Pericarditis, Cellulitis, Deep Vein Thrombosis, Hypertension or Varicose Veins RESPIRATORY: Positive Asthma, Smoking, Smoking Cessation Counseling, Smoking Exposure and Tobacco Use; Negative Chronic Obstructive Pulmonary Disease (COPD), Pneumonia, Tuberculosis, Pulmonary Embolism or Sleep Apnea GASTROINTESTINAL: Positive Gastrointestinal Disorders, Gastroesophageal Reflux Disease and Obesity; Negative Hepatitis, Cirrhosis, Pancreatitis, Celiac Disease, Gall Bladder Disease, Gastrointestinal Bleed, Esophageal Varices, Cui's Esophagus, Colitis, Ulcerative Colitis, Diverticulitis, Ulcer, Colorectal Cancer, Irritable Bowel, Crohn's Disease, Obstructive Bowel, Hiatal Hernia or Hemorrhoids GENITOURINARY: Positive Genitourinary Disorders and Kidney Stones; Negative Renal Disease, Polycystic Kidney Disease, Neurogenic Bladder, Inguinal Hernia, Dialysis or Prostate Cancer REPRODUCTIVE: Positive Previous Pregnancies; Negative Breast Cancer, Endometriosis, Genital Herpes, Gonorrhea, Pelvic Inflammatory Disease, Syphilis, Testicular Cancer or Uterine Prolapse MUSCULOSKELETAL: Positive Musculoskeletal Disorders, Arthritis, Degenerative Disk Disease, Fractures and Degenerative Joint Disease; Negative Muscular Dystrophy, Myasthenia Gravis, Marfan's Syndrome, Bone Cancer, Rheumatoid Arthritis, Osteoporosis, Gout, Carpal Tunnel Syndrome, Fibromyalgia, Osteomyelitis or Poliovirus ENT: Negative Cataracts, Glaucoma, Blind, Retinal Detachment, Macular Degeneration, Ear Infection, Head Trauma or Eye Prosthesis ENDOCRINE: Positive Endocrine Disorders and Pituitary Disease; Negative Diabetes Mellitus Type 1, Diabetes Mellitus Type 2, Hypoglycemia, Philip's Syndrome, Sutton's Disease, Hyperthyroidism, Hypothyroidism, Parathyroid Disease, Systemic Lupus Erythematosus, Syndrome of Inappropriate Antidiuretic Hormone (SIADH), Adrenal Disease or Graves' Disease HEMATOLOGIC: Negative Blood Disorders, Anemia, Leukemia, Hemophilia, Thalassemia, Sickle Cell Disease or Clotting Problems PSYCHO/SOCIAL: Positive Anxiety and Post Traumatic Stress Disorder; Negative Psychiatric Problems, Schizophrenia, Recreational Drug Use, Bipolar Disorder, Depression, Behavior Problems, Self-Mutilation, Attention Deficit Disorder, Attention Deficit Hyperactivity Disorder or Depression OTHER HISTORY: Positive Hospitalization and Chicken Pox; Negative Autoimmune Disease, Down Syndrome, Autism, Developmental Delay, Shingles, Falls, Blood Transfusions, Blood Transfusion Reaction, Anesthesia Reactions, Organ Transplant, Chemotherapy, Radiation Therapy, Hyperbaric Therapy, MRSA, VRSA, Vancomycin-Resistant Enterococci, Human Immunodeficiency Virus (HIV), Measles, Mumps, Rubella (Faroese Measles), Pertussis, Clostridium Difficile, Cancer, Breast Cancer, Cervical Cancer, Colorectal Cancer, Lung Cancer, Ovarian Cancer, Prostate Cancer or Testicular Cancer Family History FAMILY HISTORY: Negative Family Psychiatric Problems, Family Respiratory Disorders, Family Cardiac Disorders, Family Gastrointestinal Problems, Family Cancer, Family Surgery or Family Anesthesia Reaction Surgical History SURGICAL: Positive Joint Replacement, Open Reduction Internal Fixation, Arthroscopy, Hysterectomy and Tubal Ligation; Negative Cardiac Surgery, Open Heart Surgery, Coronary Artery Bypass Graft, Valve Replacement, Vascular Surgery, Coronary Stent, Cardiac Catheterization, Pacemaker, Angiogram, Auto Implanted Cardiovert Defib, Carotid Endarterectomy, Endocrine Surgery, Thyroidectomy, Ear Surgery, Tympanostomy Tube, Eye Surgery, Nose Surgery, Oral Surgery, Tonsillectomy, Adenoidectomy, Cochlear Implant, Corneal Transplant, Throat Surgery, Abdominal Surgery, Tracheostomy, Gastric Bypass Surgery, Gastrostomy, Bowel Surgery, Nephrectomy, Transurethral Resection, Amputation, Neurologic Surgery, Brain Shunt, Mastectomy, Lumpectomy, Section or Organ Transplant Social History SMOKING STATUS: Never smoker SECOND HAND EXPOSURE: No ED Exam Narrative Physical exam: [General: Morbidly obese not in any acute distress Head: Normocephalic HEENT: Eyes pupils are PERRLA EOMs are intact mouth pink moist membranes uvula is midline swallow symmetrical phonation is normal no otorrhea no rhinorrhea no raccoon's eyes or Street sign all of the subsystems of HEENT are Neck is supple nontender Chest equal chest rise nontender to palpation Respiratory: Clear to auscultation no wheezes crackles or rubs CV: Rate rhythm is regular no murmurs rubs or clicks Abdomen is grossly distended secondary to body habitus soft nontender no masses positive bowel sounds all 4 quadrants Back: No CVA tenderness no spinous process tenderness from cervical spine thoracic and lumbar spine Skin: Vertical surgical scar over the left knee well-healed. Intact no petechiae rash induration ulceration or crepitus Extremities: Flexion and extension of motion of both legs unable to lift the left leg straight leg raise secondary to pain in the hip. No hip pain with squeeze. Moving all other extremities against resistance cap refill less than 2 seconds neurosensory intact Neuro: Awake alert oriented x3 Glascow coma 15 no focal deficits] Course Quality Measures none Orders Category Date Time Status EKG (ED ONLY) *Do not use* NOW Care 06/04/24 12:[address] head/brain wo con Stat Exams 06/04/24 16:16 Completed EKG (ED Only) Stat Exams 06/04/24 12:28 Draft XR chest 2V Stat Exams 06/04/24 12:35 Completed XR hip LT w pelvis 2-3V Stat Exams 06/04/24 17:06 Completed XR knee LT 3V Stat Exams 06/04/24 17:06 Completed CBC Stat Lab 06/04/24 13:21 Completed Comprehensive Metabolic Panel Stat Lab 06/04/24 13:21 Completed Drug Screen,Urine Stat Lab 06/04/24 16:12 Completed HCG Qualitative,Urine Stat Lab 06/04/24 16:12 Completed Troponin I Stat Lab 06/04/24 13:21 Completed Meclizine HCl [Antivert] Med 06/04/24 12:35 Discontinued 50 mg PO X1 ONE Meclizine HCl [Antivert] Med 06/04/24 17:06 Discontinued 50 mg PO X1 ONE Vital Signs Vital signs: Vital Signs Temperature 98.5 F 06/04/24 12:38 Pulse Rate 87 06/04/24 12:38 Respiratory Rate 17 06/04/24 12:38 Blood Pressure 147/86 H 06/04/24 12:38 Pulse Oximetry (%) 98 06/04/24 12:38 Oxygen Delivery Method Room Air 06/04/24 12:38 [facility] Patient data External records reviewed:: [facility] previous records Clinical information provided by:: patient Social determinants that could affect healthcare access:: none Patient has the following chronic illnesses:: Morbid obesity anxiety How is presenting disease/condition affected by chronic disease/condition?: exacerbated by Evaluation data The following diagnostics were reviewed and interpreted by me:: lab results and radiology exam(s) Lab and/or radiology exams considered but not ordered:: EKG performed at 1236 is a ventricular rate of 69 WA interval 160 QRS of 83 QTc of 375 CBC shows no significant leukocytosis there is anemia of 11 and 35 no thrombocytopenia CMP shows a mildly elevated glucose at 115 no other electrolyte imbalances renal impairment transaminitis or T. bili elevation. Urine is positive for opiates benzos and THC. CT of the head is negative for any acute findings interpreted by me read by radiology X-ray of the hip and knee are negative for any acute finding. Interpretation Summary: Fall in the waiting room secondary to dizziness. No acute finding. Upon ordering the patient at 1623 to be walked to make sure that there was no other acute findings the patient is angry and told the nursing home admissions director that the patient just wants to leave she states that we did nothing for her . The patient is awake alert oriented of sound mind. At this time we will discharge the patient with meclizine for dizziness. Medications Medications considered but not ordered:: None Medication administrations:: Medication Administration History Discontinued Medications Meclizine HCl (Meclizine Hcl 25 Mg Tablet) 50 mg PO X1 ONE Stop: 06/04/24 12:36 Last Admin: 06/04/24 13:21 Dose: 50 mg Documented By: SHIRAZ Meclizine HCl (Meclizine Hcl 25 Mg Tablet) 50 mg PO X1 ONE Stop: 06/04/24 17:07 None Consultations Consultation(s) initiated? (list below): No Diagnosis Differential Diagnosis ED Complaint MDM: Vertigo. Closed head injury hip fracture knee fracture Most likely diagnosis given after review of the tests above:: Vertigo fall hip contusion knee contusion Admission Indicated Admission indicated?: not indicated Explain why admission is indicated or not indicated:: Stable for discharge Admission Request Was there a request for admission?: No Disposition Plan Disposition Plan: Discharge Discharge Attestation Discharge Attestation: The patient and all family members were given an opportunity to ask questions and understood the discharge instructions. Discharge instructions specifically effects, indications for sooner follow up or return to the emergency department, and the expected course of current diagnosis. Patient condition: Stable Medical Decision Making Differential Diagnosis Differential Diagnosis: Vertigo. Closed head injury hip fracture knee fracture Lab Data 06/04/24 13:21 06/04/24 13:21 Labs: Lab Results 06/04/24 06/04/24 Range/Units 13:21 16:12 WBC 11.2 H (3.6-11.0) Thou/mm3 RBC 4.09 (4.00-5.20) Miln/mm3 Hgb 11.5 L (12.0-16.0) g/dL Hct 35.2 L (36.0-46.0) % MCV 86 (80-100) fL MCH 28.1 (25.0-35.0) pg MCHC 32.7 (31.0-37.0) g/dl RDW Std Deviation 51.6 H (36.4-46.3) fL Plt Count 384 D (140-440) Thou/mm3 Neut % (Auto) 53 (37-80) % Lymph % (Auto) 33 (10-50) % [place] % (Auto) 7 (0-12) % Eos % (Auto) 6 (0-10) % Baso % (Auto) 1 (0-2.5) % Neut # (Auto) 5.9 (1.8-7.7) Thou/mm3 Lymph # (Auto) 3.7 (1.0-4.8) Thou/mm3 [place] # (Auto) 0.7 (0.0-0.8) Thou/mm3 Eos # (Auto) 0.7 H (0.0-0.5) Thou/mm3 Baso # (Auto) 0.1 (0.0-0.2) Thou/mm3 Immature Gran # (Auto) 0.03 H (0.00-0.00) Thou/mm3 Absolute Nucleated RBC 0.00 (0.00-0.00) Thou/mm3 Immature Gran % 0 (0-0) % Nucleated RBC % 0 (0) /100 WBC Sodium 141 (136-145) mMol/L Potassium 3.8 (3.4-5.1) mMol/L Chloride 112 H (98-107) mMol/L Carbon Dioxide 24.4 (20.0-31.0) mMol/L Anion Gap 5 L (7-16) BUN 10 (9-23) mg/dL Creatinine 1.0 (0.6-1.3) mg/dL Estim Creat Clear Calc 89.9 (>60) mL/min eGFR > 60 (60 - ) See Note BUN/Creatinine Ratio 10 L (12-20) Ratio Glucose 115 H (74-106) mg/dL Calculated Osmolality 281 (275-295) Calcium 9.4 (8.3-10.6) mg/dL Corrected Calcium 9.4 (8.5-10.1) mg/dL Total Bilirubin < 0.2 L (0.3-1.2) mg/dL AST < 10 (0-34) U/L ALT < 7 L (10-49) U/L Alkaline Phosphatase 117 H (46-116) U/L Troponin I < 0.002 (0.0-0.045) ng/mL Total Protein 6.9 (5.7-8.2) gm/dL Albumin 4.4 (3.5-5.0) gm/dL Globulin 2.5 (2.3-3.5) gm/dL Albumin/Globulin Ratio 1.8 (1.2-2.2) Urine HCG, Qual Negative Urine Opiates Screen Positive A (Negative) Urine Fentanyl Screen Negative (Negative) Ur Barbiturates Screen Negative (Negative) U Amphetamin/Meth Scrn Negative (Negative) U Benzodiazepines Scrn Positive A (Negative) U Cocaine Metab Screen Negative (Negative) U Marijuana (THC) Screen Positive A (Negative) Discharge Plan Plan Patient Disposition: HOME (Self Care) Patient condition on transfer: Stable Prescriptions/Referrals Prescriptions/Med Rec: New meclizine 50 mg tablet 50 mg PO QDAY Qty: 14 0RF meloxicam 7.5 mg tablet 7.5 mg PO QDAY Qty: 10 0RF No Action duloxetine [Cymbalta] 30 mg capsule,delayed release(DR/EC) 30 mg PO BID sulfamethoxazole-trimethoprim [Bactrim DS] 800-160 mg tablet 1 tab PO BID Qty: 14 0RF naproxen 500 mg tablet 500 mg PO BID Qty: 60 0RF acetaminophen-codeine 300-30 mg tablet 1 tab PO Q6H PRN (Reason: pain) Qty: 28 0RF sulfamethoxazole-trimethoprim [Bactrim DS] 800-160 mg tablet 1 tab PO Q12H Qty: 20 0RF tramadol 50 mg tablet 50 mg PO Q8H PRN (Reason: pain) Qty: 21 0RF omeprazole 40 mg capsule,delayed release(DR/EC) 40 mg PO AC alprazolam [Xanax] 0.5 mg Tablet 0.5 mg PO BID prazosin 1 mg Capsule 1 mg PO QPM pregabalin [Lyrica] 150 mg Capsule 150 mg PO TID sennosides-docusate sodium [Senna-S] 8.6-50 mg tablet 1 tab-cap PO QDAY Qty: 30 0RF aspirin 81 mg tablet,delayed release (DR/EC) 81 mg PO BID Qty: 60 0RF acetaminophen [Acetaminophen Extra Strength] 500 mg tablet 1,000 mg PO Q6H MDD 1000mg PRN (Reason: pain) Qty: 90 0RF gabapentin 300 mg capsule 300 mg PO .qhs Qty: 30 0RF doxycycline hyclate 100 mg tablet 100 mg PO BID Qty: 14 0RF ketorolac 10 mg tablet 10 mg PO Q8H Qty: 7 0RF Rx Instructions: maximum total duration of 5 days from all oral, intranasal, or parenteral formulations ondansetron 4 mg tablet,disintegrating 4 mg PO Q8H Qty: 10 0RF Referrals: Peyton Webb PA-C [Primary Care Provider] - In 1 week Problem List Clinical Impression: Fall, Contusion of hip, Contusion of knee, Vertigo, Morbid obesity Patient/Caregiver Discharge Instructions Other Activity Instructions:: All your x-rays and CTs are negative for any acute finding continue take the medicines to help with the vertigo or dizziness. If there is worsening of symptoms return the emergency room for reevaluation. Education Materials: Bruises (Contusions), ED Hip Contusion, Vertigo Staying Safe, Vertigo Medicine Tx Print Language: Syrian Stand Alone Forms: Caitlin Award Info., Patient Portal Info Letter, Work/School Release ASHLEY/AUGUST Supervising Physician ASHLEY/AUGUST Supervising Physician: Emmett Chua ENP
== END 2024-06-04 18:38 | disposition left against medical advice (07) ==
PROVIDERS: Nurse Practitioner Primary Care; Emergency Provider Emergency Medicine; PCP Physician Assistant
DX: S70.02XA Contusion of left hip, initial encounter (principal); S80.02XA Contusion of left knee, initial encounter; S09.90XA Unspecified injury of head, initial encounter; R42 Dizziness and giddiness; E66.01 Morbid (severe) obesity due to excess calories; R07.9 Chest pain, unspecified; R94.31 Abnormal electrocardiogram [ECG] [EKG]; W19.XXXA Unspecified fall, initial encounter; Z68.41 Body mass index [BMI] 40.0-44.9, adult; Z53.29 Procedure and treatment not carried out because of patient's decision for other reasons
CPT/HCPCS: 36415; 70450; 71046; 73502; 73562; 80053; 80307; 81025; 84484; 85025; 93005; 99283; A9270

== ENCOUNTER 2024-06-29 19:15 | Emergency (ER) | payer MEDICARE, MEDICAID, SELFPAY ==
[2024-06-29 19:17] VITALS: BMI 39.9
[2024-06-29 20:07] VITALS: BP 123/81; PULSE 74; RESP 20; TEMP 36.9; O2SAT 97
--- NOTE | 2024-06-29 20:22 | XR_ITS ---
Examination: Shoulder,right, 3 views Technique: Shoulder AP internal rotation, AP external rotation, Y view shoulder, 3 views Exam date and time :June 29, [id number] hrs. Indications: Patient fell today with into the right shoulder, right shoulder pain. Findings: No shoulder fracture or dislocation No foreign body Impression: No shoulder fracture or dislocation
--- NOTE | 2024-06-29 20:23 | PD.EDUPEX ---
Upper Extremity Injury RME/HPI General Stated Complaint: R SHOULDER/CHEST PAIN S/P FALL Time Seen by Provider: 06/29/24 19:21 Arrival date/time: 06/29/24 19:15 48-year-old female reports with complaints of right shoulder pain. Patient states while taking a short shower she fell and caught herself with the right arm. Patient says she has burning in the shoulder that radiates to the check and the back skews me she denies any numbness or tingling decreased range of motion or weakness of the limb. Patient also denies taking any medications for the pain Limitations: no limitations Related Data Home Medications ?Medication ?Instructions ?Recorded ?Confirmed alprazolam 0.5 mg tablet (Xanax) 0.5 mg PO BID 07/18/20 03/26/24 omeprazole 40 mg capsule,delayed 40 mg PO AC 08/31/21 03/26/24 release duloxetine 30 mg capsule,delayed 30 mg PO BID 08/22/22 03/26/24 release (Cymbalta) prazosin 1 mg capsule 1 mg PO QPM 05/29/23 03/26/24 pregabalin 150 mg capsule (Lyrica) 150 mg PO TID 05/29/23 03/26/24 Previous Rx's ?Medication ?Instructions ?Recorded acetaminophen 500 mg tablet 1,000 mg (2 x 500 mg) PO Q6H PRN 08/30/23 (Acetaminophen Extra Strength) pain #90 tabs aspirin 81 mg tablet,delayed 81 mg PO BID #60 tabs 08/30/23 release doxycycline hyclate 100 mg tablet 100 mg PO BID #14 tabs 08/30/23 gabapentin 300 mg capsule 300 mg PO .qhs #30 caps 08/30/23 sennosides 8.6 mg-docusate sodium 1 tab-cap PO QDAY #30 tabs 08/30/23 50 mg tablet (Senna-S) sulfamethoxazole 800 1 tab PO BID #14 tabs 10/09/23 mg-trimethoprim 160 mg tablet (Bactrim DS) sulfamethoxazole 800 1 tab PO Q12H #20 tabs 10/10/23 mg-trimethoprim 160 mg tablet (Bactrim DS) naproxen 500 mg tablet 500 mg PO BID #60 tabs 12/12/23 tramadol 50 mg tablet 50 mg PO Q8H PRN pain #21 tabs 03/05/24 acetaminophen 300 mg-codeine 30 mg 1 tab PO Q6H PRN pain #28 tabs 03/26/24 tablet ketorolac 10 mg tablet 10 mg PO Q8H #7 tabs 05/27/24 ondansetron 4 mg disintegrating 4 mg PO Q8H #10 tabs 05/27/24 tablet meclizine 50 mg tablet 50 mg PO QDAY #14 tabs 06/04/24 meloxicam 7.5 mg tablet 7.5 mg PO QDAY #10 tabs 06/04/24 Allergies Allergy/AdvReac Type Severity Reaction Status Date / Time cat dander Allergy Severe Difficulty Verified 06/29/24 19:18 Breathing Review of Systems Constitutional Constitutional: Denies weakness Musculoskeletal Musculoskeletal: Reports arthralgias, Denies deformity, Denies joint swelling, Denies numbness and Denies tingling Integumentary/Breasts Skin/Breast: Denies unusual bruising and Denies wounds Neurologic Neurologic: Denies numbness, Denies tingling and Denies weakness Hematologic/Lymphatic Hematologic/Lymphatic: Denies easy bleeding and Denies easy bruising Past Medical History Past Medical History NEUROLOGIC: Negative Neurological Disorders, Cerebrovascular Accident, Transient Ischemic Attacks (TIA), Parkinson's Disease, Brain Tumor, Meningitis, Seizures, Cerebral Palsy, Amyotrophic Lateral Sclerosis (ALS/Bhumika Gehrig's), Paralysis, Peripheral Neuropathy, Torres's Palsy, Subdural Hematoma, Head Trauma, Spinal Cord Injury or Traumatic Brain Injury CARDIAC: Negative Cardiac Disorders, Myocardial Infarction, Cardiac Arrhythmia, Atrial Fibrillation, Angina, Heart Murmur, Coronary Artery Disease, Atherosclerotic Heart Disease, Peripheral Vascular Disease, Hypercholesterolemia, Aneurysm, Congestive Heart Failure, Congenital Heart Disease, Valvular Heart Disease, Rheumatic Fever, Cardiomyopathy, Edema, Pericarditis, Cellulitis, Deep Vein Thrombosis, Hypertension or Varicose Veins RESPIRATORY: Positive Asthma, Smoking, Smoking Cessation Counseling, Smoking Exposure and Tobacco Use; Negative Chronic Obstructive Pulmonary Disease (COPD), Pneumonia, Tuberculosis, Pulmonary Embolism or Sleep Apnea GASTROINTESTINAL: Positive Gastrointestinal Disorders, Gastroesophageal Reflux Disease and Obesity; Negative Hepatitis, Cirrhosis, Pancreatitis, Celiac Disease, Gall Bladder Disease, Gastrointestinal Bleed, Esophageal Varices, Cui's Esophagus, Colitis, Ulcerative Colitis, Diverticulitis, Ulcer, Colorectal Cancer, Irritable Bowel, Crohn's Disease, Obstructive Bowel, Hiatal Hernia or Hemorrhoids GENITOURINARY: Positive Genitourinary Disorders and Kidney Stones; Negative Renal Disease, Polycystic Kidney Disease, Neurogenic Bladder, Inguinal Hernia, Dialysis or Prostate Cancer REPRODUCTIVE: Positive Previous Pregnancies; Negative Breast Cancer, Endometriosis, Genital Herpes, Gonorrhea, Pelvic Inflammatory Disease, Syphilis, Testicular Cancer or Uterine Prolapse MUSCULOSKELETAL: Positive Musculoskeletal Disorders, Arthritis, Degenerative Disk Disease, Fractures and Degenerative Joint Disease; Negative Muscular Dystrophy, Myasthenia Gravis, Marfan's Syndrome, Bone Cancer, Rheumatoid Arthritis, Osteoporosis, Gout, Carpal Tunnel Syndrome, Fibromyalgia, Osteomyelitis or Poliovirus ENT: Negative Cataracts, Glaucoma, Blind, Retinal Detachment, Macular Degeneration, Ear Infection, Head Trauma or Eye Prosthesis ENDOCRINE: Positive Endocrine Disorders and Pituitary Disease; Negative Diabetes Mellitus Type 1, Diabetes Mellitus Type 2, Hypoglycemia, Cherry's Syndrome, [place]'s Disease, Hyperthyroidism, Hypothyroidism, Parathyroid Disease, Systemic Lupus Erythematosus, Syndrome of Inappropriate Antidiuretic Hormone (SIADH), Adrenal Disease or Graves' Disease HEMATOLOGIC: Negative Blood Disorders, Anemia, Leukemia, Hemophilia, Thalassemia, Sickle Cell Disease or Clotting Problems PSYCHO/SOCIAL: Positive Anxiety and Post Traumatic Stress Disorder; Negative Psychiatric Problems, Schizophrenia, Recreational Drug Use, Bipolar Disorder, Depression, Behavior Problems, Self-Mutilation, Attention Deficit Disorder, Attention Deficit Hyperactivity Disorder or Depression OTHER HISTORY: Positive Hospitalization and Chicken Pox; Negative Autoimmune Disease, Down Syndrome, Autism, Developmental Delay, Shingles, Falls, Blood Transfusions, Blood Transfusion Reaction, Anesthesia Reactions, Organ Transplant, Chemotherapy, Radiation Therapy, Hyperbaric Therapy, MRSA, VRSA, Vancomycin-Resistant Enterococci, Human Immunodeficiency Virus (HIV), Measles, Mumps, Rubella (Telugu Measles), Pertussis, Clostridium Difficile, Cancer, Breast Cancer, Cervical Cancer, Colorectal Cancer, Lung Cancer, Ovarian Cancer, Prostate Cancer or Testicular Cancer Family History FAMILY HISTORY: Negative Family Psychiatric Problems, Family Respiratory Disorders, Family Cardiac Disorders, Family Gastrointestinal Problems, Family Cancer, Family Surgery or Family Anesthesia Reaction Surgical History SURGICAL: Positive Joint Replacement, Open Reduction Internal Fixation, Arthroscopy, Hysterectomy and Tubal Ligation; Negative Cardiac Surgery, Open Heart Surgery, Coronary Artery Bypass Graft, Valve Replacement, Vascular Surgery, Coronary Stent, Cardiac Catheterization, Pacemaker, Angiogram, Auto Implanted Cardiovert Defib, Carotid Endarterectomy, Endocrine Surgery, Thyroidectomy, Ear Surgery, Tympanostomy Tube, Eye Surgery, Nose Surgery, Oral Surgery, Tonsillectomy, Adenoidectomy, Cochlear Implant, Corneal Transplant, Throat Surgery, Abdominal Surgery, Tracheostomy, Gastric Bypass Surgery, Gastrostomy, Bowel Surgery, Nephrectomy, Transurethral Resection, Amputation, Neurologic Surgery, Brain Shunt, Mastectomy, Lumpectomy, Section or Organ Transplant Social History SMOKING STATUS: Never smoker SECOND HAND EXPOSURE: No ED Exam General Limitations: Present no limitations General appearance: Present alert and in no apparent distress Chest Chest inspection: Present normal inspection and symmetric chest wall rise Respiratory Respiratory exam: Present normal lung sounds bilaterally Cardiovascular Cardiovascular exam: Present regular rate, normal rhythm and normal heart sounds Expanded Upper Extremity Exam Shoulder exam: Present normal inspection, full ROM and tenderness (Along scapula spine right side); Absent swelling, ecchymosis, deformity, dislocation or tenderness over AC joint Arm exam: Present normal inspection and full ROM Elbow exam: Present normal inspection and full ROM Back Exam Back exam: Present normal inspection and full ROM Neurological Exam Neurological exam: Present alert, oriented X3 and CN II-XII intact Psychiatric Psychiatric exam: Present normal affect and normal mood Skin Skin exam: Present warm, dry, intact and normal color Course Course Course Narrative: X-rays negative for fractures or dislocations of the shoulder Quality Measures none Orders Category Date Time Status XR shoulder RT min 2V Stat Exams 06/29/24 20:22 Taken Vital Signs Vital signs: Vital Signs Temperature 98.4 F 06/29/24 20:07 Pulse Rate 74 06/29/24 20:07 Respiratory Rate 20 06/29/24 20:07 Blood Pressure 123/81 06/29/24 20:07 Pulse Oximetry (%) 97 06/29/24 20:07 Oxygen Delivery Method Room Air 06/29/24 20:07 Extremity Injury Patient data External records reviewed:: None Clinical information provided by:: patient Social determinants that could affect healthcare access:: none Patient has the following chronic illnesses:: none How is presenting disease/condition affected by chronic disease/condition?: no chronic disease Evaluation data The following diagnostics were reviewed and interpreted by me:: radiology exam(s) Lab and/or radiology exams considered but not ordered:: none Interpretation Summary: Negative for fractures or dislocations of the shoulder Medications / Prescriptions Medications or Prescriptions considered but not ordered:: none Medication administrations:: none Consultations Consultation(s) initiated? (list below): No Diagnosis Upper Extremity Injury Differential Diagnosis: dislocation of shoulder and fracture of clavicle Most likely diagnosis given after review of the tests above:: Shoulder strain chest wall strain Admission Indicated Admission indicated?: not indicated Admission Request Was there a request for admission?: No Disposition Plan Disposition Plan: Discharge Discharge Attestation Discharge Attestation: The patient and all family members were given an opportunity to ask questions and understood the discharge instructions. Discharge instructions specifically effects, indications for sooner follow up or return to the emergency department, and the expected course of current diagnosis. Patient condition: Stable Discharge Plan Plan Patient Disposition: HOME (Self Care) Prescriptions/Referrals Prescriptions/Med Rec: No Action duloxetine [Cymbalta] 30 mg capsule,delayed release(DR/EC) 30 mg PO BID sulfamethoxazole-trimethoprim [Bactrim DS] 800-160 mg tablet 1 tab PO BID Qty: 14 0RF naproxen 500 mg tablet 500 mg PO BID Qty: 60 0RF acetaminophen-codeine 300-30 mg tablet 1 tab PO Q6H PRN (Reason: pain) Qty: 28 0RF sulfamethoxazole-trimethoprim [Bactrim DS] 800-160 mg tablet 1 tab PO Q12H Qty: 20 0RF tramadol 50 mg tablet 50 mg PO Q8H PRN (Reason: pain) Qty: 21 0RF omeprazole 40 mg capsule,delayed release(DR/EC) 40 mg PO AC alprazolam [Xanax] 0.5 mg Tablet 0.5 mg PO BID prazosin 1 mg Capsule 1 mg PO QPM pregabalin [Lyrica] 150 mg Capsule 150 mg PO TID sennosides-docusate sodium [Senna-S] 8.6-50 mg tablet 1 tab-cap PO QDAY Qty: 30 0RF aspirin 81 mg tablet,delayed release (DR/EC) 81 mg PO BID Qty: 60 0RF acetaminophen [Acetaminophen Extra Strength] 500 mg tablet 1,000 mg PO Q6H MDD 1000mg PRN (Reason: pain) Qty: 90 0RF gabapentin 300 mg capsule 300 mg PO .qhs Qty: 30 0RF doxycycline hyclate 100 mg tablet 100 mg PO BID Qty: 14 0RF ketorolac 10 mg tablet 10 mg PO Q8H Qty: 7 0RF Rx Instructions: maximum total duration of 5 days from all oral, intranasal, or parenteral formulations ondansetron 4 mg tablet,disintegrating 4 mg PO Q8H Qty: 10 0RF meclizine 50 mg tablet 50 mg PO QDAY Qty: 14 0RF meloxicam 7.5 mg tablet 7.5 mg PO QDAY Qty: 10 0RF Referrals: No Primary/Family,Physician [Primary Care Provider] - In 1 week Problem List Clinical Impression: Shoulder sprain, Chest wall muscle strain Patient/Caregiver Discharge Instructions Discharge Activity: activity as tolerated Education Materials: ED Shoulder Sprain Additional Instructions: X-rays are negative for fractures or dislocations gives brain strains of your muscles in your chest and your shoulder you should apply ice with a towel for 20 minutes 2 or 3 times a day take pain medications such as Tylenol ibuprofen as needed follow-up with your primary care provider if no improvement in 3 to 5 days. Print Language: Chinese Stand Alone Forms: Caitlin Award Info., Patient Portal Info Letter
== END 2024-06-29 21:02 | disposition home or self-care (01) ==
PROVIDERS: Emergency Provider Emergency Medicine
DX: S43.401A Unspecified sprain of right shoulder joint, initial encounter (principal); S29.011A Strain of muscle and tendon of front wall of thorax, initial encounter; W18.2XXA Fall in (into) shower or empty bathtub, initial encounter; Y93.E1 Activity, personal bathing and showering
CPT/HCPCS: 73030; 99283

== ENCOUNTER 2024-07-30 20:31 | Emergency (ER) | payer MEDICARE, MEDICAID, SELFPAY ==
[2024-07-30 20:32] VITALS: BMI 40.3
--- NOTE | 2024-07-30 20:46 | XR_ITS ---
Examination: Left knee 4 views Technique: AP, lateral, oblique, axial left knee 4 views Exam date and time: July 30, 2024 at 1958 hrs. Comparison June 04, 2024 Indications: Patient fell today with injury to the knee, knee pain. Findings: Total left knee arthroplasty. Satisfactory alignment. Total dislocation of the patella bilaterally No fracture Impression: Total lateral subluxation of the patella
[2024-07-30 21:20] VITALS: BP 113/77; PULSE 82; RESP 17; TEMP 36.8; O2SAT 96
--- NOTE | 2024-07-30 21:40 | PD.EDLOWEX ---
Lower Extremity Injury RME/HPI General Chief Complaint: Fall Stated Complaint: FALL, LT KNEE PAIN Time Seen by Provider: 07/30/24 21:27 Arrival date/time: 07/30/24 20:31 48F with history of asthma and multiple L knee replacements/surgeries presents to ED because her L knee folded and gave out, and patient fell. Patient did hit her head, but denies LOC, AMS, seizures, N/V, vision changes, and being on blood thinners. Patient normally doesn't have much ROM/strength with L knee. Usually her brace and wheelchair are enough, but not today. Limitations: no limitations Related Data Home Medications ?Medication ?Instructions ?Recorded ?Confirmed alprazolam 0.5 mg tablet (Xanax) 0.5 mg PO BID 07/18/20 03/26/24 omeprazole 40 mg capsule,delayed 40 mg PO AC 08/31/21 03/26/24 release duloxetine 30 mg capsule,delayed 30 mg PO BID 08/22/22 03/26/24 release (Cymbalta) prazosin 1 mg capsule 1 mg PO QPM 05/29/23 03/26/24 pregabalin 150 mg capsule (Lyrica) 150 mg PO TID 05/29/23 03/26/24 Previous Rx's ?Medication ?Instructions ?Recorded acetaminophen 500 mg tablet 1,000 mg (2 x 500 mg) PO Q6H PRN 08/30/23 (Acetaminophen Extra Strength) pain #90 tabs aspirin 81 mg tablet,delayed 81 mg PO BID #60 tabs 08/30/23 release doxycycline hyclate 100 mg tablet 100 mg PO BID #14 tabs 08/30/23 gabapentin 300 mg capsule 300 mg PO .qhs #30 caps 08/30/23 sennosides 8.6 mg-docusate sodium 1 tab-cap PO QDAY #30 tabs 08/30/23 50 mg tablet (Senna-S) sulfamethoxazole 800 1 tab PO BID #14 tabs 10/09/23 mg-trimethoprim 160 mg tablet (Bactrim DS) sulfamethoxazole 800 1 tab PO Q12H #20 tabs 10/10/23 mg-trimethoprim 160 mg tablet (Bactrim DS) naproxen 500 mg tablet 500 mg PO BID #60 tabs 12/12/23 tramadol 50 mg tablet 50 mg PO Q8H PRN pain #21 tabs 03/05/24 acetaminophen 300 mg-codeine 30 mg 1 tab PO Q6H PRN pain #28 tabs 03/26/24 tablet ketorolac 10 mg tablet 10 mg PO Q8H #7 tabs 05/27/24 ondansetron 4 mg disintegrating 4 mg PO Q8H #10 tabs 05/27/24 tablet meclizine 50 mg tablet 50 mg PO QDAY #14 tabs 06/04/24 meloxicam 7.5 mg tablet 7.5 mg PO QDAY #10 tabs 06/04/24 Allergies Allergy/AdvReac Type Severity Reaction Status Date / Time cat dander Allergy Severe Difficulty Verified 06/29/24 19:18 Breathing Review of Systems Review of Systems Systems Reviewed: All systems reviewed, normal except as documented Constitutional Constitutional: Reports system reviewed and no additional complaints, except as documented, Denies fever(s) and Denies headache(s) ENT Ears, Nose, Mouth, and Throat: Denies disequilibrium and Denies headache(s) Cardiovascular Cardiovascular: Reports system reviewed and no additional complaints, except as documented, Denies chest pain and Denies dyspnea Respiratory Respiratory: Reports system reviewed and no additional complaints, except as documented, Denies cough and Denies dyspnea Gastrointestinal Gastrointestinal: Reports system reviewed and no additional complaints, except as documented, Denies abdominal pain, Denies nausea and Denies vomiting Musculoskeletal Musculoskeletal: Reports as per HPI, Reports arthralgias and Reports joint swelling Neurologic Neurologic: Reports system reviewed and no additional complaints, except as documented, Denies confusion, Denies disequilibrium and Denies headache(s) Psychiatric Psychiatric: Denies confusion Past Medical History Past Medical History NEUROLOGIC: Negative Neurological Disorders, Cerebrovascular Accident, Transient Ischemic Attacks (TIA), Parkinson's Disease, Brain Tumor, Meningitis, Seizures, Cerebral Palsy, Amyotrophic Lateral Sclerosis (ALS/Bhuimka Gehrig's), Paralysis, Peripheral Neuropathy, Torres's Palsy, Subdural Hematoma, Head Trauma, Spinal Cord Injury or Traumatic Brain Injury CARDIAC: Negative Cardiac Disorders, Myocardial Infarction, Cardiac Arrhythmia, Atrial Fibrillation, Angina, Heart Murmur, Coronary Artery Disease, Atherosclerotic Heart Disease, Peripheral Vascular Disease, Hypercholesterolemia, Aneurysm, Congestive Heart Failure, Congenital Heart Disease, Valvular Heart Disease, Rheumatic Fever, Cardiomyopathy, Edema, Pericarditis, Cellulitis, Deep Vein Thrombosis, Hypertension or Varicose Veins RESPIRATORY: Positive Asthma, Smoking, Smoking Cessation Counseling, Smoking Exposure and Tobacco Use; Negative Chronic Obstructive Pulmonary Disease (COPD), Pneumonia, Tuberculosis, Pulmonary Embolism or Sleep Apnea GASTROINTESTINAL: Positive Gastrointestinal Disorders, Gastroesophageal Reflux Disease and Obesity; Negative Hepatitis, Cirrhosis, Pancreatitis, Celiac Disease, Gall Bladder Disease, Gastrointestinal Bleed, Esophageal Varices, Cui's Esophagus, Colitis, Ulcerative Colitis, Diverticulitis, Ulcer, Colorectal Cancer, Irritable Bowel, Crohn's Disease, Obstructive Bowel, Hiatal Hernia or Hemorrhoids GENITOURINARY: Positive Genitourinary Disorders and Kidney Stones; Negative Renal Disease, Polycystic Kidney Disease, Neurogenic Bladder, Inguinal Hernia, Dialysis or Prostate Cancer REPRODUCTIVE: Positive Previous Pregnancies; Negative Breast Cancer, Endometriosis, Genital Herpes, Gonorrhea, Pelvic Inflammatory Disease, Syphilis, Testicular Cancer or Uterine Prolapse MUSCULOSKELETAL: Positive Musculoskeletal Disorders, Arthritis, Degenerative Disk Disease, Fractures and Degenerative Joint Disease; Negative Muscular Dystrophy, Myasthenia Gravis, Marfan's Syndrome, Bone Cancer, Rheumatoid Arthritis, Osteoporosis, Gout, Carpal Tunnel Syndrome, Fibromyalgia, Osteomyelitis or Poliovirus ENT: Negative Cataracts, Glaucoma, Blind, Retinal Detachment, Macular Degeneration, Ear Infection, Head Trauma or Eye Prosthesis ENDOCRINE: Positive Endocrine Disorders and Pituitary Disease; Negative Diabetes Mellitus Type 1, Diabetes Mellitus Type 2, Hypoglycemia, Cherry's Syndrome, Daniels's Disease, Hyperthyroidism, Hypothyroidism, Parathyroid Disease, Systemic Lupus Erythematosus, Syndrome of Inappropriate Antidiuretic Hormone (SIADH), Adrenal Disease or Graves' Disease HEMATOLOGIC: Negative Blood Disorders, Anemia, Leukemia, Hemophilia, Thalassemia, Sickle Cell Disease or Clotting Problems PSYCHO/SOCIAL: Positive Anxiety and Post Traumatic Stress Disorder; Negative Psychiatric Problems, Schizophrenia, Recreational Drug Use, Bipolar Disorder, Depression, Behavior Problems, Self-Mutilation, Attention Deficit Disorder, Attention Deficit Hyperactivity Disorder or Depression OTHER HISTORY: Positive Hospitalization and Chicken Pox; Negative Autoimmune Disease, Down Syndrome, Autism, Developmental Delay, Shingles, Falls, Blood Transfusions, Blood Transfusion Reaction, Anesthesia Reactions, Organ Transplant, Chemotherapy, Radiation Therapy, Hyperbaric Therapy, MRSA, VRSA, Vancomycin-Resistant Enterococci, Human Immunodeficiency Virus (HIV), Measles, Mumps, Rubella ([place] Measles), Pertussis, Clostridium Difficile, Cancer, Breast Cancer, Cervical Cancer, Colorectal Cancer, Lung Cancer, Ovarian Cancer, Prostate Cancer or Testicular Cancer Family History FAMILY HISTORY: Negative Family Psychiatric Problems, Family Respiratory Disorders, Family Cardiac Disorders, Family Gastrointestinal Problems, Family Cancer, Family Surgery or Family Anesthesia Reaction Surgical History SURGICAL: Positive Joint Replacement, Open Reduction Internal Fixation, Arthroscopy, Hysterectomy and Tubal Ligation; Negative Cardiac Surgery, Open Heart Surgery, Coronary Artery Bypass Graft, Valve Replacement, Vascular Surgery, Coronary Stent, Cardiac Catheterization, Pacemaker, Angiogram, Auto Implanted Cardiovert Defib, Carotid Endarterectomy, Endocrine Surgery, Thyroidectomy, Ear Surgery, Tympanostomy Tube, Eye Surgery, Nose Surgery, Oral Surgery, Tonsillectomy, Adenoidectomy, Cochlear Implant, Corneal Transplant, Throat Surgery, Abdominal Surgery, Tracheostomy, Gastric Bypass Surgery, Gastrostomy, Bowel Surgery, Nephrectomy, Transurethral Resection, Amputation, Neurologic Surgery, Brain Shunt, Mastectomy, Lumpectomy, Section or Organ Transplant Social History SMOKING STATUS: Never smoker SECOND HAND EXPOSURE: No ED Exam General Limitations: Present no limitations General appearance: Present alert and in no apparent distress Head Head exam: Present atraumatic Eye Eye exam: Present normal appearance, PERRL and EOMI ENT ENT exam: Present normal exam, normal oropharynx and mucous membranes moist Neck Neck exam: Present normal inspection, full ROM and trachea midline Chest Chest inspection: Present normal inspection and symmetric chest wall rise Respiratory Respiratory exam: Present normal lung sounds bilaterally Cardiovascular Cardiovascular exam: Present regular rate, normal rhythm and normal heart sounds Abdominal Exam Abdominal exam: Present soft and normal bowel sounds Expanded Lower Extremity Exam Knee exam: Present tenderness (L) and swelling Back Exam Back exam: Present normal inspection and full ROM Neurological Exam Neurological exam: Present alert, oriented X3 and CN II-XII intact Psychiatric Psychiatric exam: Present normal affect and normal mood Skin Skin exam: Present warm, dry, intact and normal color Course Quality Measures none Orders Category Date Time Status XR knee LT 3V Stat Exams 07/30/24 20:46 Completed Ketorolac Inj [Toradol Inj] Med 07/30/24 21:27 Discontinued 60 mg IM X1 ONE Vital Signs Vital signs: Vital Signs Temperature 98.3 F 07/30/24 21:20 Pulse Rate 82 07/30/24 21:20 Respiratory Rate 17 07/30/24 21:20 Blood Pressure 113/77 07/30/24 21:20 Pulse Oximetry (%) 96 07/30/24 21:20 Oxygen Delivery Method Room Air 07/30/24 21:20 O2 at 96% on RA and WNLs Extremity Injury, Lower MDM Narrative MDM Narrative:: 48F with history of asthma and multiple L knee replacements/surgeries presents to ED because her L knee folded and gave out, and patient fell. Patient did hit her head, but denies LOC, AMS, seizures, N/V, vision changes, and being on blood thinners. Patient normally doesn't have much ROM/strength with L knee. Usually her brace and wheelchair are enough, but not today. Physical exam reveals normal pupil response and EOM. No neck tenderness. ENT and lungs clear. L knee swelling, but very limited ROM, but patient states that's baseline for her. Patient is afebrile, calm, and alert. Patient declines head/neck CT because she braced herself with hands prior to hitting her head. She will return if worsening. XR reveals patellar dislocation. Reduction was done, but was self-dislocate. Spoke to Dr Marsh, who is patient's ortho surgeon, who states this dislocation is chronic/recurrent. Given SAI and professor of counseling. Patient data External records reviewed:: [facility] previous records Clinical information provided by:: patient Social determinants that could affect healthcare access:: none Patient has the following chronic illnesses:: none How is presenting disease/condition affected by chronic disease/condition?: no chronic disease Evaluation data The following diagnostics were reviewed and interpreted by me:: radiology exam(s) Lab and/or radiology exams considered but not ordered:: ordered Interpretation Summary: above Medications / Prescriptions Medications or Prescriptions considered but not ordered:: ordered Medication administrations:: Medication Administration History Discontinued Medications Ketorolac Tromethamine (Ketorolac Inj 60 Mg/2 Ml Vial) 60 mg IM X1 ONE Stop: 07/30/24 21:28 Last Admin: 07/30/24 21:47 Dose: 60 mg Documented By: OA above Consultations Consultation(s) initiated? (list below): No Diagnosis Extremity Injury, Lower Differential Diagnosis: ankle sprain and strain, acute internal derangement of knee, fracture of femur, fracture of hip and other (brain bleed, recurrent dislocation of patella) Most likely diagnosis given after review of the tests above:: recurrent dislocation of patella Admission Indicated Admission indicated?: not indicated Admission Request Was there a request for admission?: No Disposition Plan Disposition Plan: Discharge Discharge Attestation Discharge Attestation: The patient and all family members were given an opportunity to ask questions and understood the discharge instructions. Discharge instructions specifically effects, indications for sooner follow up or return to the emergency department, and the expected course of current diagnosis. Patient condition: Stable Discharge Plan Plan Patient Disposition: HOME (Self Care) Disposition Comment: Stable Prescriptions/Referrals Prescriptions/Med Rec: No Action duloxetine [Cymbalta] 30 mg capsule,delayed release(DR/EC) 30 mg PO BID sulfamethoxazole-trimethoprim [Bactrim DS] 800-160 mg tablet 1 tab PO BID Qty: 14 0RF naproxen 500 mg tablet 500 mg PO BID Qty: 60 0RF acetaminophen-codeine 300-30 mg tablet 1 tab PO Q6H PRN (Reason: pain) Qty: 28 0RF sulfamethoxazole-trimethoprim [Bactrim DS] 800-160 mg tablet 1 tab PO Q12H Qty: 20 0RF tramadol 50 mg tablet 50 mg PO Q8H PRN (Reason: pain) Qty: 21 0RF omeprazole 40 mg capsule,delayed release(DR/EC) 40 mg PO AC alprazolam [Xanax] 0.5 mg Tablet 0.5 mg PO BID prazosin 1 mg Capsule 1 mg PO QPM pregabalin [Lyrica] 150 mg Capsule 150 mg PO TID sennosides-docusate sodium [Senna-S] 8.6-50 mg tablet 1 tab-cap PO QDAY Qty: 30 0RF aspirin 81 mg tablet,delayed release (DR/EC) 81 mg PO BID Qty: 60 0RF acetaminophen [Acetaminophen Extra Strength] 500 mg tablet 1,000 mg PO Q6H MDD 1000mg PRN (Reason: pain) Qty: 90 0RF gabapentin 300 mg capsule 300 mg PO .qhs Qty: 30 0RF doxycycline hyclate 100 mg tablet 100 mg PO BID Qty: 14 0RF ketorolac 10 mg tablet 10 mg PO Q8H Qty: 7 0RF Rx Instructions: maximum total duration of 5 days from all oral, intranasal, or parenteral formulations ondansetron 4 mg tablet,disintegrating 4 mg PO Q8H Qty: 10 0RF meclizine 50 mg tablet 50 mg PO QDAY Qty: 14 0RF meloxicam 7.5 mg tablet 7.5 mg PO QDAY Qty: 10 0RF Referrals: No Primary/Family,Physician [Primary Care Provider] - In 1 week Problem List Clinical Impression: Recurrent dislocation of patella Patient/Caregiver Discharge Instructions Education Materials: Rehabilitation for Kneecap ... Additional Instructions: Please follow-up with PCP within 24-48 hours and return immediately if symptoms worsen. Good luck with Ayse appts. Print Language: Croatian Stand Alone Forms: Patient Portal Info Letter PA/[employer] Supervising Physician PA/[employer] Supervising Physician: Dr. Sim
[2024-07-30] MEDS: KETOROLAC INJ 60 MG/2 ML VIAL IM (21:47)
== END 2024-07-30 22:18 | disposition home or self-care (01) ==
PROVIDERS: Emergency Provider Emergency Medicine
DX: M22.02 Recurrent dislocation of patella, left knee (principal)
CPT/HCPCS: 73562; 96372; 99283; J1885

== ENCOUNTER 2024-09-29 21:30 | Emergency (ER) | payer MEDICARE, MEDICAID, SELFPAY ==
[2024-09-29 21:33] VITALS: BMI 40.3
[2024-09-29 21:52] VITALS: BP 134/79; PULSE 73; RESP 18; TEMP 37.2; O2SAT 97
--- NOTE | 2024-09-29 22:02 | XR_ITS ---
Examination: Lumbar spine 3 views TECHNIQUE: AP lateral and coned-down lateral lower lumbar spine 3 views Date and time: September 29, 2024 10:31 PM INDICATIONS: Patient fell today with injury to lower back, lower back pain. FINDINGS: Adequate alignment lumbar vertebral bodies No lumbar fracture Moderate to advanced diffuse lumbar disc narrowing IMPRESSION: No lumbar fracture
--- NOTE | 2024-09-29 22:02 | XR_ITS ---
Examination: Knee, left , 3 views Technique: Knee AP, lateral, oblique 3 views Date and time of exam: September 29, 2024 10:27 PM INDICATIONS: Patient fell today with knee pain one year. FINDINGS: Total left knee arthroplasty. Satisfactory alignment. No fracture. No definite loosening of the prosthetic components No definite current subluxation of the patella IMPRESSION: No acute fracture
--- NOTE | 2024-09-29 22:04 | PD.EDADULT ---
ED General RME/HPI General Chief complaint: Fall Stated complaint: FALL, LEFT KNEE PAIN, DIZZINESS AFTERWARDS Time Seen by Provider: 09/29/24 21:57 Arrival date/time: 09/29/24 21:30 CC: Left knee pain low back pain HPI status post fall 4 days ago patient fell directly on his knee flopping forward onto her belly she said it was like a worm . Patient is morbidly obese. Since that the patient has had low back pain no medicines were taken today. Patient denies bowel or bladder symptoms saddle anesthesia numbness tingling or weakness in the lower extremities. Patient states she has had 4 revisions on the left knee and is now being referred to [facility] for possible further result revisions. Today the patient got the foot of the left leg caught in the carpet causing a twisting sensation which increased the pain in the knee. Patient denies inability to walk numbness or tingling in the lower extremity. Related Data Home Medications ?Medication ?Instructions ?Recorded ?Confirmed alprazolam 0.5 mg tablet (Xanax) 0.5 mg PO BID 07/18/20 03/26/24 omeprazole 40 mg capsule,delayed 40 mg PO AC 08/31/21 03/26/24 release duloxetine 30 mg capsule,delayed 30 mg PO BID 08/22/22 03/26/24 release (Cymbalta) prazosin 1 mg capsule 1 mg PO QPM 05/29/23 03/26/24 pregabalin 150 mg capsule (Lyrica) 150 mg PO TID 05/29/23 03/26/24 Previous Rx's ?Medication ?Instructions ?Recorded acetaminophen 500 mg tablet 1,000 mg (2 x 500 mg) PO Q6H PRN 08/30/23 (Acetaminophen Extra Strength) pain #90 tabs aspirin 81 mg tablet,delayed 81 mg PO BID #60 tabs 08/30/23 release doxycycline hyclate 100 mg tablet 100 mg PO BID #14 tabs 08/30/23 gabapentin 300 mg capsule 300 mg PO .qhs #30 caps 08/30/23 sennosides 8.6 mg-docusate sodium 1 tab-cap PO QDAY #30 tabs 08/30/23 50 mg tablet (Senna-S) sulfamethoxazole 800 1 tab PO BID #14 tabs 10/09/23 mg-trimethoprim 160 mg tablet (Bactrim DS) sulfamethoxazole 800 1 tab PO Q12H #20 tabs 10/10/23 mg-trimethoprim 160 mg tablet (Bactrim DS) naproxen 500 mg tablet 500 mg PO BID #60 tabs 12/12/23 tramadol 50 mg tablet 50 mg PO Q8H PRN pain #21 tabs 03/05/24 acetaminophen 300 mg-codeine 30 mg 1 tab PO Q6H PRN pain #28 tabs 03/26/24 tablet ketorolac 10 mg tablet 10 mg PO Q8H #7 tabs 05/27/24 ondansetron 4 mg disintegrating 4 mg PO Q8H #10 tabs 05/27/24 tablet meclizine 50 mg tablet 50 mg PO QDAY #14 tabs 06/04/24 meloxicam 7.5 mg tablet 7.5 mg PO QDAY #10 tabs 06/04/24 mupirocin 2 % topical ointment 1 applic topical BID Left knee 09/29/24 abrasion #15 grams oxycodone-acetaminophen 5 mg-325 1 tab PO Q6H PRN pain #10 tabs 09/29/24 mg tablet Allergies Allergy/AdvReac Type Severity Reaction Status Date / Time cat dander Allergy Severe Difficulty Verified 09/29/24 21:32 Breathing Review of Systems Review of Systems Narrative Review of Systems: GEN: No fever, no chills, no weight loss EYES: No discharge, no visual changes, no pain HEENT: No ear pain, no congestion, no sore throat PULM: No shortness of breath, no cough, no congestion CV: No chest pain, no dyspnea on exertion, no palpitations GI: No nausea, no vomiting, no diarrhea, no pain, no constipation : No frequency, no urgency, no dysuria MUSC/SKEL: + joint pain, no back pain SKIN: No rash PSYCH: No hallucinations, no depression HEME/LYMPH: No easy bleeding or bruising tendencies NEURO: No weakness, no headache Past Medical History Past Medical History NEUROLOGIC: Negative Neurological Disorders, Cerebrovascular Accident, Transient Ischemic Attacks (TIA), Parkinson's Disease, Brain Tumor, Meningitis, Seizures, Cerebral Palsy, Amyotrophic Lateral Sclerosis (ALS/Bhumika Gehrig's), Paralysis, Peripheral Neuropathy, Torres's Palsy, Subdural Hematoma, Head Trauma, Spinal Cord Injury or Traumatic Brain Injury CARDIAC: Negative Cardiac Disorders, Myocardial Infarction, Cardiac Arrhythmia, Atrial Fibrillation, Angina, Heart Murmur, Coronary Artery Disease, Atherosclerotic Heart Disease, Peripheral Vascular Disease, Hypercholesterolemia, Aneurysm, Congestive Heart Failure, Congenital Heart Disease, Valvular Heart Disease, Rheumatic Fever, Cardiomyopathy, Edema, Pericarditis, Cellulitis, Deep Vein Thrombosis, Hypertension or Varicose Veins RESPIRATORY: Positive Asthma, Smoking, Smoking Cessation Counseling, Smoking Exposure and Tobacco Use; Negative Chronic Obstructive Pulmonary Disease (COPD), Pneumonia, Tuberculosis, Pulmonary Embolism or Sleep Apnea GASTROINTESTINAL: Positive Gastrointestinal Disorders, Gastroesophageal Reflux Disease and Obesity; Negative Hepatitis, Cirrhosis, Pancreatitis, Celiac Disease, Gall Bladder Disease, Gastrointestinal Bleed, Esophageal Varices, Cui's Esophagus, Colitis, Ulcerative Colitis, Diverticulitis, Ulcer, Colorectal Cancer, Irritable Bowel, Crohn's Disease, Obstructive Bowel, Hiatal Hernia or Hemorrhoids GENITOURINARY: Positive Genitourinary Disorders and Kidney Stones; Negative Renal Disease, Polycystic Kidney Disease, Neurogenic Bladder, Inguinal Hernia, Dialysis or Prostate Cancer REPRODUCTIVE: Positive Previous Pregnancies; Negative Breast Cancer, Endometriosis, Genital Herpes, Gonorrhea, Pelvic Inflammatory Disease, Syphilis, Testicular Cancer or Uterine Prolapse MUSCULOSKELETAL: Positive Musculoskeletal Disorders, Arthritis, Degenerative Disk Disease, Fractures and Degenerative Joint Disease; Negative Muscular Dystrophy, Myasthenia Gravis, Marfan's Syndrome, Bone Cancer, Rheumatoid Arthritis, Osteoporosis, Gout, Carpal Tunnel Syndrome, Fibromyalgia, Osteomyelitis or Poliovirus ENT: Negative Cataracts, Glaucoma, Blind, Retinal Detachment, Macular Degeneration, Ear Infection, Head Trauma or Eye Prosthesis ENDOCRINE: Positive Endocrine Disorders and Pituitary Disease; Negative Diabetes Mellitus Type 1, Diabetes Mellitus Type 2, Hypoglycemia, Milton's Syndrome, Romayor's Disease, Hyperthyroidism, Hypothyroidism, Parathyroid Disease, Systemic Lupus Erythematosus, Syndrome of Inappropriate Antidiuretic Hormone (SIADH), Adrenal Disease or Graves' Disease HEMATOLOGIC: Negative Blood Disorders, Anemia, Leukemia, Hemophilia, Thalassemia, Sickle Cell Disease or Clotting Problems PSYCHO/SOCIAL: Positive Anxiety and Post Traumatic Stress Disorder; Negative Psychiatric Problems, Schizophrenia, Recreational Drug Use, Bipolar Disorder, Depression, Behavior Problems, Self-Mutilation, Attention Deficit Disorder, Attention Deficit Hyperactivity Disorder or Depression OTHER HISTORY: Positive Hospitalization and Chicken Pox; Negative Autoimmune Disease, Down Syndrome, Autism, Developmental Delay, Shingles, Falls, Blood Transfusions, Blood Transfusion Reaction, Anesthesia Reactions, Organ Transplant, Chemotherapy, Radiation Therapy, Hyperbaric Therapy, MRSA, VRSA, Vancomycin-Resistant Enterococci, Human Immunodeficiency Virus (HIV), Measles, Mumps, Rubella (Burkinan Measles), Pertussis, Clostridium Difficile, Cancer, Breast Cancer, Cervical Cancer, Colorectal Cancer, Lung Cancer, Ovarian Cancer, Prostate Cancer or Testicular Cancer Family History FAMILY HISTORY: Negative Family Psychiatric Problems, Family Respiratory Disorders, Family Cardiac Disorders, Family Gastrointestinal Problems, Family Cancer, Family Surgery or Family Anesthesia Reaction Surgical History SURGICAL: Positive Joint Replacement, Open Reduction Internal Fixation, Arthroscopy, Hysterectomy and Tubal Ligation; Negative Cardiac Surgery, Open Heart Surgery, Coronary Artery Bypass Graft, Valve Replacement, Vascular Surgery, Coronary Stent, Cardiac Catheterization, Pacemaker, Angiogram, Auto Implanted Cardiovert Defib, Carotid Endarterectomy, Endocrine Surgery, Thyroidectomy, Ear Surgery, Tympanostomy Tube, Eye Surgery, Nose Surgery, Oral Surgery, Tonsillectomy, Adenoidectomy, Cochlear Implant, Corneal Transplant, Throat Surgery, Abdominal Surgery, Tracheostomy, Gastric Bypass Surgery, Gastrostomy, Bowel Surgery, Nephrectomy, Transurethral Resection, Amputation, Neurologic Surgery, Brain Shunt, Mastectomy, Lumpectomy, Section or Organ Transplant Social History SMOKING STATUS: Never smoker SECOND HAND EXPOSURE: No ED Exam Narrative Physical exam: [General: Morbidly obese in mild discomfort but not in any acute distress Head normocephalic HEENT: Eyes pupils are PERRLA EOMs are intact. All other subsystems of HEENT are within acceptable limits Neck is supple nontender Chest equal chest rise nontender to palpation Respiratory: Clear to auscultation no wheezes crackles or rubs CV: Rate rhythm is regular no murmurs rubs or clicks Abdomen is grossly distended secondary to body habitus soft nontender no masses positive bowel sounds all 4 quadrants Back: Lumbar/sacral tenderness with palpation. No paraspinal tenderness with palpation thoracic cervical and upper lumbar. Skin: Intact no petechiae rash induration ulceration or crepitus Extremities: Left lower extremity: Patient has vertical surgical scar to the left knee that is well-healed minimal edema, chronic enlargement. No erythema nontender in the posterior fossa, not warm to touch. Ambulating with a limp. Moving all other extremities against resistance cap refill less than 2 seconds neurosensory intact Neuro: Awake alert oriented x3 Glascow coma 15 no focal deficits] Course Quality Measures none Orders Category Date Time Status Miscellaneous Nursing Order NOW Care 09/29/24 23:10 Completed XR knee LT 3V Stat Exams 09/29/24 22:02 Completed XR lumbar spine 2-3V Stat Exams 09/29/24 22:02 Completed Acetaminophen Tab [Tylenol Tab] Med 09/29/24 23:10 Discontinued 650 mg PO X1 ONE Bacitracin Oint pkt Med 09/29/24 23:10 Discontinued 1 gm TOP X1 ONE Ketorolac Inj [Toradol Inj] Med 09/29/24 23:09 Discontinued 30 mg IM X1 ONE oxyCODONE/APAP 5/325 [Percocet 5/325] Med 09/29/24 22:02 Discontinued 1 tab PO X1 ONE Vital Signs Vital signs: Vital Signs Temperature 99 F 09/29/24 21:52 Pulse Rate 73 09/29/24 21:52 Respiratory Rate 18 09/29/24 21:52 Blood Pressure 134/79 H 09/29/24 21:52 Pulse Oximetry (%) 97 09/29/24 21:52 Oxygen Delivery Method Room Air 09/29/24 21:52 Discharge Plan Plan Patient Disposition: HOME (Self Care) Discharge Disposition comment: Stable for discharge home Patient condition on transfer: Stable Prescriptions/Referrals Prescriptions/Med Rec: New mupirocin 2 % ointment 1 applic topical BID Qty: 15 0RF oxycodone-acetaminophen 5-325 mg tablet 1 tab PO Q6H MDD 4 tabs PRN (Reason: pain) Qty: 10 0RF No Action duloxetine [Cymbalta] 30 mg capsule,delayed release(DR/EC) 30 mg PO BID sulfamethoxazole-trimethoprim [Bactrim DS] 800-160 mg tablet 1 tab PO BID Qty: 14 0RF naproxen 500 mg tablet 500 mg PO BID Qty: 60 0RF acetaminophen-codeine 300-30 mg tablet 1 tab PO Q6H PRN (Reason: pain) Qty: 28 0RF sulfamethoxazole-trimethoprim [Bactrim DS] 800-160 mg tablet 1 tab PO Q12H Qty: 20 0RF tramadol 50 mg tablet 50 mg PO Q8H PRN (Reason: pain) Qty: 21 0RF omeprazole 40 mg capsule,delayed release(DR/EC) 40 mg PO AC alprazolam [Xanax] 0.5 mg Tablet 0.5 mg PO BID prazosin 1 mg Capsule 1 mg PO QPM pregabalin [Lyrica] 150 mg Capsule 150 mg PO TID sennosides-docusate sodium [Senna-S] 8.6-50 mg tablet 1 tab-cap PO QDAY Qty: 30 0RF aspirin 81 mg tablet,delayed release (DR/EC) 81 mg PO BID Qty: 60 0RF acetaminophen [Acetaminophen Extra Strength] 500 mg tablet 1,000 mg PO Q6H MDD 1000mg PRN (Reason: pain) Qty: 90 0RF gabapentin 300 mg capsule 300 mg PO .qhs Qty: 30 0RF doxycycline hyclate 100 mg tablet 100 mg PO BID Qty: 14 0RF ketorolac 10 mg tablet 10 mg PO Q8H Qty: 7 0RF Rx Instructions: maximum total duration of 5 days from all oral, intranasal, or parenteral formulations ondansetron 4 mg tablet,disintegrating 4 mg PO Q8H Qty: 10 0RF meclizine 50 mg tablet 50 mg PO QDAY Qty: 14 0RF meloxicam 7.5 mg tablet 7.5 mg PO QDAY Qty: 10 0RF Referrals: [facility] [Provider Group] - In 1 week Problem List Clinical Impression: Contusion of knee, Lumbar strain Patient/Caregiver Discharge Instructions Discharge Activity: activity as tolerated Education Materials: Self-Care for Strains and Sprains, ED Back Sprain/Strain, ED Contusion, Lower Extremity Additional Instructions: Please return to the emergency department if you have any worsening or any further medical problems. Otherwise you should follow-up with your primary physician or in the [facility] within the next several days. There are several medicines waiting for you at your pharmacy. Please use all medications as directed. The oxycodone is a narcotic. After taking this medicine you cannot drive or operate heavy machinery. Print Language: Kyrgyz Stand Alone Forms: Caitlin Award Info., Patient Portal Info Letter MDM Clinical Information Provided by: patient Medical Records reviewed [facility] Meds/Rx considered, not ordered None Labs/Rad/Tests considered, not ordered None Medication Administration(s) Medication Administration History Discontinued Medications Acetaminophen (Acetaminophen 325 Mg Tablet) 650 mg PO X1 ONE Stop: 09/29/24 23:11 Last Admin: 09/29/24 23:29 Dose: 650 mg Documented By: CHRISTOPHER Bacitracin (Bacitracin Oint 1 Gm Packet) 1 gm TOP X1 ONE Stop: 09/29/24 23:11 Last Admin: 09/29/24 23:31 Dose: 1 gm Documented By: CHRISTOPHER Ketorolac Tromethamine (Ketorolac Inj 60 Mg/2 Ml Vial) 30 mg IM X1 ONE Stop: 09/29/24 23:10 Last Admin: 09/29/24 23:30 Dose: 30 mg Documented By: CHRISTOPHER Oxycodone/Acetaminophen (Oxycodone/Apap 5/325 Tablet) 1 tab PO X1 ONE Stop: 09/29/24 22:03 Last Admin: 09/29/24 22:23 Dose: 1 tab Documented By: SHIRAZ
[2024-09-29] MEDS: oxyCODONE/APAP 5/325 TABLET 1 TAB PO (22:23)
--- NOTE | 2024-09-29 23:00 | EDNOTE_ITS ---
Emergency Room Addendum Addendum Narrative: 2300: Care assumed from Emmett Chua NP. Past medical, surgical, social and family history reviewed. Vitals and home medications reviewed. Results and treatment plan discussed. I will assume the care of the patient at this time and will follow the patient, pending x-rays. Please refer to the emergency department record for history and examination from initial visit. Patient states she's having lower back pain and left knee pain. Patient states she feels minimally better after receiving Percocet. She is due to have a revision of her left knee prosthesis on 01/04/25. Discussed results with the patient. Patient is stable to be discharged home. I ordered a dose of Toradol and Tylenol for the patient to receive before she goes home. RADIOLOGY RESULTS: [facility] Report Signed Patient: JÚNIOR WALDRON Bucmi. Record#: [id number] Birthdate: 1975 Age/Sex: 48 / F Location: [facility] Attending Dr: Ordering Physician: Emmett Chua NP Date of Service: 09/29/24 Procedure(s): XR lumbar spine 2-3V Accession Number(s): [id number] cc: Emmett Chua NP; Teddy De Paz MD~ Examination: Lumbar spine 3 views TECHNIQUE: AP lateral and coned-down lateral lower lumbar spine 3 views Date and time: September 29, 2024 10:31 PM INDICATIONS: Patient fell today with injury to lower back, lower back pain. FINDINGS: Adequate alignment lumbar vertebral bodies No lumbar fracture Moderate to advanced diffuse lumbar disc narrowing IMPRESSION: No lumbar fracture Dictated By: Teddy De Paz MD Signed By: <Electronically signed by Teddy De Paz MD in [place] 09/29/24 2253 [facility] Report Signed Patient: JÚNIOR WALDRON Bucmi. Record#: [id number] Birthdate: 1975 Age/Sex: 48 / F Location: [facility] Attending Dr: Ordering Physician: Emmett Chua NP Date of Service: 09/29/24 Procedure(s): XR knee LT 3V Accession Number(s): [id number] cc: Emmett Chua REHABILITATION INSPECTOR; Teddy De Paz MD~ Examination: Knee, left , 3 views Technique: Knee AP, lateral, oblique 3 views Date and time of exam: September 29, 2024 10:27 PM INDICATIONS: Patient fell today with knee pain one year. FINDINGS: Total left knee arthroplasty. Satisfactory alignment. No fracture. No definite loosening of the prosthetic components No definite current subluxation of the patella IMPRESSION: No acute fracture Dictated By: Teddy De Paz MD Signed By: <Electronically signed by Teddy De Paz MD in [place]> 09/29/24 [id number]
[2024-09-29] MEDS: ACETAMINOPHEN 325 MG TABLET 650 MG PO (23:29)
[2024-09-29] MEDS: KETOROLAC INJ 60 MG/2 ML VIAL 30 MG IM (23:30)
[2024-09-29] MEDS: BACITRACIN OINT 1 GM PACKET TOP (23:31)
== END 2024-09-29 23:42 | disposition home or self-care (01) ==
PROVIDERS: Emergency Provider Emergency Medicine; PCP Nurse Practitioner Family
DX: S80.02XA Contusion of left knee, initial encounter (principal); S39.012A Strain of muscle, fascia and tendon of lower back, initial encounter; E66.01 Morbid (severe) obesity due to excess calories; Z68.41 Body mass index [BMI] 40.0-44.9, adult; X50.1XXA Overexertion from prolonged static or awkward postures, initial encounter
CPT/HCPCS: 72100; 73562; 96372; 99283; J1885; A9270

== ENCOUNTER → 2024-10-19 | Outpatient (CLI) | payer MEDICARE, MEDICAID, SELFPAY ==
--- NOTE | 2024-10-19 12:30 | XR_ITS ---
Examination: MRI of brain without intravenous contrast. MRI brain with intravenous contrast. Date and time of exam:October at 1232 hours Comparison 01/31/2022 INDICATIONS: History syncope and collapse, headaches numbness in the head 4 months, history pituitary adenoma, 4 mm, brain MRI 01/31/2022 Technique: Multiple axial and sagittal images of the brain to been obtained. Siemens high-resolution 1.52 Brigitte short bore scanner utilized. Sagittal sections, T1 weighted images, TR 500, TE 14, are performed. Axial sections proton-density and T2-weighted images have been obtained. Inversion recovery axial images, TR 9260, TE 111, TR 2500. Diffusion weighted images, axial sections, TR 4800, TE 128, B value 1000. Axial sections, ADC map, TR 4800, TE 128. Axial and coronal images were also obtained post 20 cc gadolinium administered intravenously. Findings:: Enlargement of the sella turcica is not present. The optic chiasm and infundibular stalk are not remarkable. There is no localized enlargement of the medulla or luci. Fourth ventricle and cerebellar tonsils appear normal in position. No subacute area of hemorrhage density is seen. Fourth ventricle is midline. Mass in the cerebellopontine angle region is not evident. 7th and 8th nerve complexes exhibit symmetry Globes are symmetrical Orbital musculature including medial lateral rectus muscles do not exhibit abnormality Increased white matter signal is not seen Mild chronic pansinusitis Effacement of the cortical sulcal markings is not identified. Mass effect upon the ventricular system is not identified. Diffusion-weighted images demonstrate no focus of restricted diffusion Contrast images demonstrate 5 mm pituitary microadenoma Impression: Negative for acute hemorrhage mass effect or midline shift No acute infarct 5 mm pituitary microadenoma
== END | disposition home or self-care (01) ==
LOC: SMRI 11:59
PROVIDERS: PCP Physician Assistant; Referring Provider Physician Assistant; Visit Provider Physician Assistant
DX: D35.2 Benign neoplasm of pituitary gland (principal)
CPT/HCPCS: 70553; A9579

== ENCOUNTER 2024-11-24 11:46 | Emergency (ER) | payer MEDICARE, MEDICAID, SELFPAY ==
[2024-11-24 11:46] VITALS: BMI 40.3
--- NOTE | 2024-11-24 11:49 | XR_ITS ---
Examination: Shoulder,left, 3 views Technique: Shoulder AP internal rotation, AP external rotation, Y view shoulder, 3 views Exam date and time :November 24, 2024, 12:17 PM Indications: Patient fell 2 days ago with injury to the shoulder, shoulder pain. Findings: No shoulder fracture or dislocation Subtle old appearing deformity distal clavicle No foreign body Impression: No definite shoulder fracture or dislocation Subtle old appearing deformity distal clavicle, clinical correlation advised
--- NOTE | 2024-11-24 11:49 | XR_ITS ---
Examination: Knee, left , 3 views Technique: Knee AP, lateral, oblique 3 views Date and time of exam: November 24, 2024 1243 hrs. Indications: Patient fell 2 days ago with injury to the knee, knee pain Findings: Total knee arthroplasty Satisfactory alignment. No acute fracture Impression: No acute fracture.
[2024-11-24 12:07] VITALS: BP 167/107; PULSE 80; RESP 17; TEMP 37.1; O2SAT 97
[2024-11-24] MEDS: IBUPROFEN TAB 600 MG TABLET PO (12:30)
--- NOTE | 2024-11-24 13:38 | PD.EDFALL ---
ED Fall Injury RME/HPI General Chief Complaint: Fall Stated Complaint: FELL YESTERDAY Time Seen by Provider: 11/24/24 11:49 Arrival date/time: 11/24/24 11:46 Limitations: no limitations RME / HPI RME / HPI Narrative: 48-year-old female who states she had a ground-level, mechanical, fall at home yesterday. She has left shoulder pain and left knee pain. She has no gross deformities or open wounds. She has chronic left knee pain that she uses Vicodin for. She is followed by an dermatology specialist in [place] for this. 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 She has no other acute complaints or concerns Related Data Home Medications ?Medication ?Instructions ?Recorded ?Confirmed alprazolam 0.5 mg tablet (Xanax) 0.5 mg PO BID 07/18/20 03/26/24 omeprazole 40 mg capsule,delayed 40 mg PO AC 08/31/21 03/26/24 release duloxetine 30 mg capsule,delayed 30 mg PO BID 08/22/22 03/26/24 release (Cymbalta) prazosin 1 mg capsule 1 mg PO QPM 05/29/23 03/26/24 pregabalin 150 mg capsule (Lyrica) 150 mg PO TID 05/29/23 03/26/24 Previous Rx's ?Medication ?Instructions ?Recorded acetaminophen 500 mg tablet 1,000 mg (2 x 500 mg) PO Q6H PRN 08/30/23 (Acetaminophen Extra Strength) pain #90 tabs aspirin 81 mg tablet,delayed 81 mg PO BID #60 tabs 08/30/23 release doxycycline hyclate 100 mg tablet 100 mg PO BID #14 tabs 08/30/23 gabapentin 300 mg capsule 300 mg PO .qhs #30 caps 08/30/23 sennosides 8.6 mg-docusate sodium 1 tab-cap PO QDAY #30 tabs 08/30/23 50 mg tablet (Senna-S) sulfamethoxazole 800 1 tab PO BID #14 tabs 10/09/23 mg-trimethoprim 160 mg tablet (Bactrim DS) sulfamethoxazole 800 1 tab PO Q12H #20 tabs 10/10/23 mg-trimethoprim 160 mg tablet (Bactrim DS) naproxen 500 mg tablet 500 mg PO BID #60 tabs 12/12/23 tramadol 50 mg tablet 50 mg PO Q8H PRN pain #21 tabs 03/05/24 acetaminophen 300 mg-codeine 30 mg 1 tab PO Q6H PRN pain #28 tabs 03/26/24 tablet ketorolac 10 mg tablet 10 mg PO Q8H #7 tabs 05/27/24 ondansetron 4 mg disintegrating 4 mg PO Q8H #10 tabs 05/27/24 tablet meclizine 50 mg tablet 50 mg PO QDAY #14 tabs 06/04/24 meloxicam 7.5 mg tablet 7.5 mg PO QDAY #10 tabs 06/04/24 mupirocin 2 % topical ointment 1 applic topical BID Left knee 09/29/24 abrasion #15 grams oxycodone-acetaminophen 5 mg-325 1 tab PO Q6H PRN pain #10 tabs 09/29/24 mg tablet Allergies Allergy/AdvReac Type Severity Reaction Status Date / Time cat dander Allergy Severe Difficulty Verified 11/24/24 11:46 Breathing Review of Systems Review of Systems Systems Reviewed: All systems reviewed, normal except as documented ED Exam General Limitations: Present no limitations General appearance: Present alert and in no apparent distress Head Head exam: Present atraumatic Eye Eye exam: Present normal appearance, PERRL and EOMI ENT ENT exam: Present normal exam, normal oropharynx and mucous membranes moist Neck Neck exam: Present normal inspection, full ROM and trachea midline Chest Chest inspection: Present normal inspection and symmetric chest wall rise Respiratory Respiratory exam: Present normal lung sounds bilaterally Cardiovascular Cardiovascular exam: Present regular rate, normal rhythm and normal heart sounds Abdominal Exam Abdominal exam: Present soft and normal bowel sounds Extremities Exam Extremities exam: Present full ROM and other (Patient is self ambulating. She has full range of her shoulder with discomfort. Her left knee cannot extend fully, her patella is displaced laterally.) Back Exam Back exam: Present normal inspection and full ROM Neurological Exam Neurological exam: Present alert and oriented X3 Psychiatric Psychiatric exam: Present normal affect and normal mood Skin Skin exam: Present warm, dry, intact and normal color Course Quality Measures none Orders Category Date Time Status XR knee LT 3V Stat Exams 11/24/24 11:49 Completed XR shoulder LT min 2V Stat Exams 11/24/24 11:49 Completed Ibuprofen Tab [Motrin Tab] Med 11/24/24 11:50 Discontinued 600 mg PO X1 ONE Morphine Inj Med 11/24/24 13:37 Once 2 mg IM X1 ONE Vital Signs Vital signs: Vital Signs Temperature 98.7 F 11/24/24 12:07 Pulse Rate 80 11/24/24 12:07 Respiratory Rate 17 11/24/24 12:07 Blood Pressure 167/107 H 11/24/24 12:07 Pulse Oximetry (%) 97 11/24/24 12:07 Oxygen Delivery Method Room Air 11/24/24 12:07 Fall MDM Narrative MDM Narrative:: 48-year-old female who states she had a ground-level, mechanical, fall at home yesterday. She has left shoulder pain and left knee pain. She has no gross deformities or open wounds. She has chronic left knee pain that she uses Vicodin for. She is followed by an dermatology specialist in [place] for this. 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 She has no other acute complaints or concerns On exam, patient is uncomfortable appearing. Her left patella is displaced laterally. She is able to extend her knee fully. She states this is chronic. She has a follow-up appoint with her orthopedic surgeon next month for this. Patient received a dose of ibuprofen here and requested additional pain management. A dose of morphine will be provided. She will continue current medications at home. Follow-up with orthopedics as planned. Return at anytime for worsening or emergent changes. Patient data External records reviewed:: None Clinical information provided by:: patient Social determinants that could affect healthcare access:: none Patient has the following chronic illnesses:: Chronic left knee pain, How is presenting disease/condition affected by chronic disease/condition?: exacerbated by Evaluation data The following diagnostics were reviewed and interpreted by me:: radiology exam(s) (No acute osseous injury) Lab and/or radiology exams considered but not ordered:: n/a Interpretation Summary: No acute osseous injury Medications / Prescriptions Medications or Prescriptions considered but not ordered:: n/a Medication administrations:: Medication Administration History Morphine Sulfate (Morphine Sulf Inj 10 Mg/Ml Vial) 2 mg IM X1 ONE Stop: 11/24/24 13:38 Discontinued Medications Ibuprofen (Ibuprofen Tab 600 Mg Tablet) 600 mg PO X1 ONE Stop: 11/24/24 11:51 Last Admin: 11/24/24 12:30 Dose: 600 mg Documented By: See above Consultations Consultation(s) initiated? (list below): No Diagnosis Fall Differential Diagnosis: syncope and dislocation of shoulder region Most likely diagnosis given after review of the tests above:: left Knee sprain, left shoulder contusion Admission Indicated Admission indicated?: not indicated Admission Request Was there a request for admission?: No Disposition Plan Disposition Plan: Discharge Discharge Attestation Discharge Attestation: The patient and all family members were given an opportunity to ask questions and understood the discharge instructions. Discharge instructions specifically effects, indications for sooner follow up or return to the emergency department, and the expected course of current diagnosis. Patient condition: Stable Discharge Plan Plan Patient Disposition: HOME (Self Care) Patient condition on transfer: Stable Prescriptions/Referrals Prescriptions/Med Rec: No Action duloxetine [Cymbalta] 30 mg capsule,delayed release(DR/EC) 30 mg PO BID sulfamethoxazole-trimethoprim [Bactrim DS] 800-160 mg tablet 1 tab PO BID Qty: 14 0RF naproxen 500 mg tablet 500 mg PO BID Qty: 60 0RF acetaminophen-codeine 300-30 mg tablet 1 tab PO Q6H PRN (Reason: pain) Qty: 28 0RF sulfamethoxazole-trimethoprim [Bactrim DS] 800-160 mg tablet 1 tab PO Q12H Qty: 20 0RF tramadol 50 mg tablet 50 mg PO Q8H PRN (Reason: pain) Qty: 21 0RF omeprazole 40 mg capsule,delayed release(DR/EC) 40 mg PO AC alprazolam [Xanax] 0.5 mg Tablet 0.5 mg PO BID prazosin 1 mg Capsule 1 mg PO QPM pregabalin [Lyrica] 150 mg Capsule 150 mg PO TID sennosides-docusate sodium [Senna-S] 8.6-50 mg tablet 1 tab-cap PO QDAY Qty: 30 0RF aspirin 81 mg tablet,delayed release (DR/EC) 81 mg PO BID Qty: 60 0RF acetaminophen [Acetaminophen Extra Strength] 500 mg tablet 1,000 mg PO Q6H MDD 1000mg PRN (Reason: pain) Qty: 90 0RF gabapentin 300 mg capsule 300 mg PO .qhs Qty: 30 0RF doxycycline hyclate 100 mg tablet 100 mg PO BID Qty: 14 0RF ketorolac 10 mg tablet 10 mg PO Q8H Qty: 7 0RF Rx Instructions: maximum total duration of 5 days from all oral, intranasal, or parenteral formulations ondansetron 4 mg tablet,disintegrating 4 mg PO Q8H Qty: 10 0RF mupirocin 2 % ointment 1 applic topical BID Qty: 15 0RF oxycodone-acetaminophen 5-325 mg tablet 1 tab PO Q6H MDD 4 tabs PRN (Reason: pain) Qty: 10 0RF meclizine 50 mg tablet 50 mg PO QDAY Qty: 14 0RF meloxicam 7.5 mg tablet 7.5 mg PO QDAY Qty: 10 0RF Problem List Clinical Impression: Contusion of left shoulder, Chronic knee pain Patient/Caregiver Discharge Instructions Education Materials: ED Chronic Pain, ED Knee Sprain Additional Instructions: - Continue current medications. - Follow-up with your dermatology specialist as planned. - Return here as needed for any worsening or emergent changes. Print Language: Ivorian Stand Alone Forms: Caitlin Award Info., Patient Portal Info Letter
[2024-11-24] MEDS: MORPHINE SULF INJ 10 MG/ML VIAL 2 MG IM (14:16)
== END 2024-11-24 14:30 | disposition home or self-care (01) ==
PROVIDERS: Emergency Provider Physician Assistant Medical; PCP Family Medicine
DX: S40.012A Contusion of left shoulder, initial encounter (principal); G89.29 Other chronic pain; M25.562 Pain in left knee; W18.30XA Fall on same level, unspecified, initial encounter; Y92.009 Unspecified place in unspecified non-institutional (private) residence as the place of occurrence of the external cause
CPT/HCPCS: 73030; 73562; 96372; 99283; J2270; A9270

== ENCOUNTER 2024-12-13 12:01 | Emergency (ER) | payer MEDICARE, MEDICAID, SELFPAY ==
[2024-12-13 12:01] VITALS: BMI 40.3
--- NOTE | 2024-12-13 12:27 | XR_ITS ---
Examination: Toes, right foot first digit 3 views Technique: Toes AP oblique lateral 3 views right foot first digit Date and time of exam: December 13, 2024 1229 hours INDICATIONS: Patient fell today with injury to the foot first digit pain. FINDINGS: No acute fracture No dislocation No foreign body IMPRESSION: No acute fracture
[2024-12-13 12:28] VITALS: BP 163/100; PULSE 71; RESP 16; TEMP 36.9; O2SAT 97
--- NOTE | 2024-12-13 12:28 | EDNOTE_ITS ---
ED General RME/HPI General Chief complaint: Ankle/Foot Injury Stated complaint: R TOE INJURY Time Seen by Provider: 12/13/24 12:22 Arrival date/time: 12/13/24 12:01 CC: Right great toe pain, acute on chronic bilateral lower extremity pain HPI patient fell yesterday, has a significant history of bilateral knee replacements with the left knee requiring revision in the near future. The patient states after the fall she has had worsening pain and her [place]'s and ibuprofen do not work at home patient denies LOC or LOC is not on any blood thinners. Cap refill in the digits less than 2 seconds. Related Data Home Medications ?Medication ?Instructions ?Recorded ?Confirmed alprazolam 0.5 mg tablet (Xanax) 0.5 mg PO BID 1 03/26/24 omeprazole 40 mg capsule,delayed 40 mg PO AC 08/31/21 03/26/24 release duloxetine 30 mg capsule,delayed 30 mg PO BID 08/22/22 03/26/24 release (Cymbalta) prazosin 1 mg capsule 1 mg PO QPM 05/29/23 4 pregabalin 150 mg capsule (Lyrica) 150 mg PO TID 05/2903/26/24 Previous Rx's ?Medication ?Instructions ?Recorded acetaminophen 500 mg tablet 1,000 mg (2 x 500 mg) PO Q 6H PRN 08/30/23 (Acetaminophen Extra Strength) pain #90 tabs aspirin 81 mg tablet,delayed 81 mg PO BID #60 tabs release doxycycline hyclate 100 mg tablet 100 mg PO BID #14 ta bs 08/30/23 gabapentin 300 mg capsule 300 mg PO .qhs #30 caps 08/13 12/05 sennosides 8.6 mg-docusate sodium 1 tab-cap PO QDAY #3 0 tabs 08/30/23 50 mg tablet (Senna-S) sulfamethoxazole 800 1 tab PO BID #14 tabs mg-trimethoprim 160 mg tablet (Bactrim DS) sulfamethoxazole 800 1 tab PO Q12H #20 tabs 10/09 mg-trimethoprim 160 mg tablet (Bactrim DS) naproxen 500 mg tablet 500 mg PO BID #60 tabs 12/11 tramadol 50 mg tablet 50 mg PO Q8H PRN pain #21 ta bs 03/05/24 acetaminophen 300 mg-codeine 30 mg 1 tab PO Q6H PRN pa in #28 tabs 03/26/24 tablet ketorolac 10 mg tablet 10 mg PO Q8H #7 tabs 5 ondansetron 4 mg disintegrating 4 mg PO Q8H #10 tabs 0 05/27/24 tablet meclizine 50 mg tablet 50 mg PO QDAY #14 tabs 06/04 meloxicam 7.5 mg tablet 7.5 mg PO QDAY #10 tabs 05/16 06/08 mupirocin 2 % topical ointment 1 applic topical BID Le ft knee 09/29/24 abrasion #15 grams oxycodone-acetaminophen 5 mg-325 1 tab PO Q6H PRN pain #10 tabs 09/29/24 mg tablet Allergies Allergy/AdvReac Type Severity Reaction Status Date / Time cat dander Allergy Severe Difficulty Verified 11/24/24 11:46 Breathing Review of Systems Review of Systems Narrative Review of Systems: GEN: No fever, no chills, no weight loss EYES: No discharge, no visual changes, no pain HEENT: No ear pain, no congestion, no sore throat PULM: No shortness of breath, no cough, no congestion CV: No chest pain, no dyspnea on exertion, no palpitations GI: No nausea, no vomiting, no diarrhea, no pain, no constipation : No frequency, no urgency, no dysuria MUSC/SKEL: No joint pain, no back pain, + great toe pain right side SKIN: No rash PSYCH: No hallucinations, no depression HEME/LYMPH: No easy bleeding or bruising tendencies NEURO: No weakness, no headache Past Medical History Past Medical History NEUROLOGIC: Negative Neurological Disorders, Cerebrovascular Accident, Transient Ischemic Attacks (TIA), Parkinson's Disease, Brain Tumor, Meningitis, Seizures, Cerebral Palsy, Amyotrophic Lateral Sclerosis (ALS/Bhumika Gehrig's), Paralysis, Peripheral Neuropathy, Torres's Palsy, Subdural Hematoma, Head Trauma, Spinal Cord Injury or Traumatic Brain Injury CARDIAC: Negative Cardiac Disorders, Myocardial Infarction, Cardiac Arrhythmia, Atrial Fibrillation, Angina, Heart Murmur, Coronary Artery Disease, Atherosclerotic Heart Disease, Peripheral Vascular Disease, Hypercholesterolemia, Aneurysm, Congestive Heart Failure, Congenital Heart Disease, Valvular Heart Disease, Rheumatic Fever, Cardiomyopathy, Edema, Pericarditis, Cellulitis, Deep Vein Thrombosis, Hypertension or Varicose Veins RESPIRATORY: Positive Asthma, Smoking, Smoking Cessation Counseling, Smoking Exposure and Tobacco Use; Negative Chronic Obstructive Pulmonary Disease (COPD), Pneumonia, Tuberculosis, Pulmonary Embolism or Sleep Apnea GASTROINTESTINAL: Positive Gastrointestinal Disorders, Gastroesophageal Reflux Disease and Obesity; Negative Hepatitis, Cirrhosis, Pancreatitis, Celiac Disease, Gall Bladder Disease, Gastrointestinal Bleed, Esophageal Varices, Cui's Esophagus, Colitis, Ulcerative Colitis, Diverticulitis, Ulcer, Colorectal Cancer, Irritable Bowel, Crohn's Disease, Obstructive Bowel, Hiatal Hernia or Hemorrhoids GENITOURINARY: Positive Genitourinary Disorders and Kidney Stones; Negative Renal Disease, Polycystic Kidney Disease, Neurogenic Bladder, Inguinal Hernia, Dialysis or Prostate Cancer REPRODUCTIVE: Positive Previous Pregnancies; Negative Breast Cancer, Endometriosis, Genital Herpes, Gonorrhea, Pelvic Inflammatory Disease, Syphilis, Testicular Cancer or Uterine Prolapse MUSCULOSKELETAL: Positive Musculoskeletal Disorders, Arthritis, Degenerative Disk Disease, Fractures and Degenerative Joint Disease; Negative Muscular Dystrophy, Myasthenia Gravis, Marfan's Syndrome, Bone Cancer, Rheumatoid Arthritis, Osteoporosis, Gout, Carpal Tunnel Syndrome, Fibromyalgia, Osteomyelitis or Poliovirus ENT: Negative Cataracts, Glaucoma, Blind, Retinal Detachment, Macular Degeneration, Ear Infection, Head Trauma or Eye Prosthesis ENDOCRINE: Positive Endocrine Disorders and Pituitary Disease; Negative Diabetes Mellitus Type 1, Diabetes Mellitus Type 2, Hypoglycemia, Cherry's Syndrome, Femi's Disease, Hyperthyroidism, Hypothyroidism, Parathyroid Disease, Systemic Lupus Erythematosus, Syndrome of Inappropriate Antidiuretic Hormone (SIADH), Adrenal Disease or Graves' Disease HEMATOLOGIC: Negative Blood Disorders, Anemia, Leukemia, Hemophilia, Thalassemia, Sickle Cell Disease or Clotting Problems PSYCHO/SOCIAL: Positive Anxiety and Post Traumatic Stress Disorder; Negative Psychiatric Problems, Schizophrenia, Recreational Drug Use, Bipolar Disorder, Depression, Behavior Problems, Self-Mutilation, Attention Deficit Disorder, Attention Deficit Hyperactivity Disorder or Depression OTHER HISTORY: Positive Hospitalization and Chicken Pox; Negative Autoimmune Disease, Down Syndrome, Autism, Developmental Delay, Shingles, Falls, Blood Transfusions, Blood Transfusion Reaction, Anesthesia Reactions, Organ Transplant, Chemotherapy, Radiation Therapy, Hyperbaric Therapy, MRSA, VRSA, Vancomycin-Resistant Enterococci, Human Immunodeficiency Virus (HIV), Measles, Mumps, Rubella (Setswana Measles), Pertussis, Clostridium Difficile, Cancer, Breast Cancer, Cervical Cancer, Colorectal Cancer, Lung Cancer, Ovarian Cancer, Prostate Cancer or Testicular Cancer Family History FAMILY HISTORY: Negative Family Psychiatric Problems, Family Respiratory Disorders, Family Cardiac Disorders, Family Gastrointestinal Problems, Family Cancer, Family Surgery or Family Anesthesia Reaction Surgical History SURGICAL: Positive Joint Replacement, Open Reduction Internal Fixation, Arthroscopy, Hysterectomy and Tubal Ligation; Negative Cardiac Surgery, Open Heart Surgery, Coronary Artery Bypass Graft, Valve Replacement, Vascular Surgery, Coronary Stent, Cardiac Catheterization, Pacemaker, Angiogram, Auto Implanted Cardiovert Defib, Carotid Endarterectomy, Endocrine Surgery, Thyroidectomy, Ear Surgery, Tympanostomy Tube, Eye Surgery, Nose Surgery, Oral Surgery, Tonsillectomy, Adenoidectomy, Cochlear Implant, Corneal Transplant, Throat Surgery, Abdominal Surgery, Tracheostomy, Gastric Bypass Surgery, Gastrostomy, Bowel Surgery, Nephrectomy, Transurethral Resection, Amputation, Neurologic Surgery, Brain Shunt, Mastectomy, Lumpectomy, Section or Organ Transplant Social History SMOKING STATUS: Never smoker SECOND HAND EXPOSURE: No ED Exam Narrative Physical exam: [General: Obese, in mild discomfort but not in any acute distress Head normocephalic HEENT: Within acceptable limits Neck is supple nontender Chest equal chest rise nontender to palpation Respiratory: Clear to auscultation no wheezes crackles or rubs CV: Rate rhythm is regular no murmurs rubs or clicks Abdomen is distended secondary to body habitus soft nontender no masses positive bowel sounds all 4 quadrants Back: No CVA tenderness no spinous process tenderness from cervical spine thoracic and lumbar spine Skin: Intact no petechiae rash induration ulceration or crepitus Extremities: Bilateral lower extremity: Knee, both have vertical surgical incision sites that are well-healed left knee greater than right not warm to touch no erythema or edema. No posterior knee tenderness with palpation. No calf tenderness. Right great toe tender to palpation. Cap refill at 2 seconds. Moving all other digits without complication ankle full range of motion. Patient observed ambulating with cane without complications. Moving all other extremities against resistance cap refill less than 2 seconds neurosensory intact Neuro: Awake alert oriented x3 Glascow coma 15 no focal deficits] Course Quality Measures none Orders Category Date Time Status XR toe RT min 2V Stat Exams 12/13/24 12:27 Taken oxyCODONE/APAP 5/325 [Percocet 5/325] Med 12/13/24 12:27 Discontinued 1 tab PO X1 ONE Vital Signs Vital signs: Vital Signs Temperature 98.5 F 12/13/24 12:28 Pulse Rate 71 12/13/24 12:28 Respiratory Rate 16 12/13/24 12:28 Blood Pressure 163/100 H 12/13/24 12:28 Pulse Oximetry (%) 97 12/13/24 12:28 Oxygen Delivery Method Room Air 12/13/24 12:28 Discharge Plan Plan Patient Disposition: HOME (Self Care) Patient condition on transfer: Stable Prescriptions/Referrals Prescriptions/Med Rec: No Action duloxetine [Cymbalta] 30 mg capsule,delayed release(DR/EC) 30 mg PO BID sulfamethoxazole-trimethoprim [Bactrim DS] 800-160 mg tablet 1 tab PO BID Qty: 14 0RF naproxen 500 mg tablet 500 mg PO BID Qty: 60 0RF acetaminophen-codeine 300-30 mg tablet 1 tab PO Q6H PRN (Reason: pain) Qty: 28 0RF sulfamethoxazole-trimethoprim [Bactrim DS] 800-160 mg tablet 1 tab PO Q12H Qty: 20 0RF tramadol 50 mg tablet 50 mg PO Q8H PRN (Reason: pain) Qty: 21 0RF omeprazole 40 mg capsule,delayed release(DR/EC) 40 mg PO AC alprazolam [Xanax] 0.5 mg Tablet 0.5 mg PO BID prazosin 1 mg Capsule 1 mg PO QPM pregabalin [Lyrica] 150 mg Capsule 150 mg PO TID sennosides-docusate sodium [Senna-S] 8.6-50 mg tablet 1 tab-cap PO QDAY Qty: 30 0RF aspirin 81 mg tablet,delayed release (DR/EC) 81 mg PO BID Qty: 60 0RF acetaminophen [Acetaminophen Extra Strength] 500 mg tablet 1,000 mg PO Q6H MDD 1000mg PRN (Reason: pain) Qty: 90 0RF gabapentin 300 mg capsule 300 mg PO .qhs Qty: 30 0RF doxycycline hyclate 100 mg tablet 100 mg PO BID Qty: 14 0RF ketorolac 10 mg tablet 10 mg PO Q8H Qty: 7 0RF Rx Instructions: maximum total duration of 5 days from all oral, intranasal, or parenteral formulations ondansetron 4 mg tablet,disintegrating 4 mg PO Q8H Qty: 10 0RF mupirocin 2 % ointment 1 applic topical BID Qty: 15 0RF oxycodone-acetaminophen 5-325 mg tablet 1 tab PO Q6H MDD 4 tabs PRN (Reason: pain) Qty: 10 0RF meclizine 50 mg tablet 50 mg PO QDAY Qty: 14 0RF meloxicam 7.5 mg tablet 7.5 mg PO QDAY Qty: 10 0RF Referrals: Peyton Webb PA-C [Primary Care Provider] - In 1 week Problem List Clinical Impression: Strain of great toe, Chronic knee pain Patient/Caregiver Discharge Instructions Other Activity Instructions:: Continue to take the narcotics and ibuprofen as prescribed for your chronic knee pain. Apply ice to the toe as it will begin to heal. Follow-up with your orthopedic surgeon. Education Materials: ED Knee Pain of Uncertain Cause, ED Toe Sprain Print Language: Faroese Stand Alone Forms: Caitlin Award Info., Work/School Release, Patient Portal Info Letter ASHLEY/AUGUST Supervising Physician ASHLEY/AUGUST Supervising Physician: Emmett Chua ENP [facility] Imaging Provider imaging interpretation(s): This patient I suspect is here majority for pain management from the chronic pain that has been exacerbated secondary to fall which the patient admittedly she landed only on the right knee and she is ambulating with cane without complication. Low index of suspicion that there is an infectious process we will discharge the patient home Radiology reports / interpretation(s): X-ray of the toe was inter by me read by radiology is negative for any acute fracture malalignment or dislocation will discharge the patient home. Medication Administration(s) Medication Administration History Discontinued Medications Oxycodone/Acetaminophen (Oxycodone/Apap 5/325 Tablet) 1 tab PO X1 ONE Stop: 12/13/24 12:28 Last Admin: 12/13/24 12:46 Dose: 1 tab Documented By: OA
== END 2024-12-13 14:16 | disposition home or self-care (01) ==
PROVIDERS: Emergency Provider Family Medicine; PCP Physician Assistant
DX: S96.911A Strain of unspecified muscle and tendon at ankle and foot level, right foot, initial encounter (principal); M25.569 Pain in unspecified knee; G89.29 Other chronic pain; W19.XXXA Unspecified fall, initial encounter; Z96.653 Presence of artificial knee joint, bilateral
CPT/HCPCS: 73660; 99283; A9270

== ENCOUNTER 2025-03-16 06:57 | Emergency (ER) | payer MEDICARE, MEDICAID, SELFPAY ==
[2025-03-16 07:05] VITALS: BP 128/79; PULSE 69; RESP 19; TEMP 36.8; O2SAT 96; BMI 41.9
--- NOTE | 2025-03-16 07:13 | XR_ITS ---
EXAMINATION: PA chest single view TECHNIQUE: PA and lateral chest (2 views Date and time: March 16, 2025, 0734 hours, comparison June 04, 2024 INDICATIONS: Chest pain beginning 2 days ago FINDINGS: Normal heart size Minor atelectasis in the lingular segment No lobar pneumonia or pulmonary edema Moderate thoracic spondylosis IMPRESSION: Minor atelectasis in lingular segment No pneumonia or pulmonary edema
--- NOTE | 2025-03-16 07:13 | EKG_ITS ---
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
--- NOTE | 2025-03-16 07:29 | EDNOTE_ITS ---
<Statement entered by Temitope Smith MD - 03/16/25 13:38> As co-signing physician, I was present and available for consult prn. I concur with the plan and care as documented by the midlevel provider. ED Chest Pain RME/HPI General Chief Complaint: Chest Pain Stated Complaint: CHEST PAIN RADIATING TO THE UPPER BACK Time Seen by Provider: 03/16/25 07:04 Source: patient Arrival date/time: 03/16/25 06:57 Mode of arrival: ambulatory Limitations: no limitations Related Data Home Medications ?Medication ?Instructions ?Recorded ?Confirmed alprazolam 0.5 mg tablet (Xanax) 0.5 mg PO BID 1 03/26/24 omeprazole 40 mg capsule,delayed 40 mg PO AC 08/31/21 03/26/24 release duloxetine 30 mg capsule,delayed 30 mg PO BID 08/22/22 03/26/24 release (Cymbalta) prazosin 1 mg capsule 1 mg PO QPM 05/29/23 4 pregabalin 150 mg capsule (Lyrica) 150 mg PO TID 05/2903/26/24 Previous Rx's ?Medication ?Instructions ?Recorded acetaminophen 500 mg tablet 1,000 mg (2 x 500 mg) PO Q 6H PRN 08/30/23 (Acetaminophen Extra Strength) pain #90 tabs aspirin 81 mg tablet,delayed 81 mg PO BID #60 tabs release doxycycline hyclate 100 mg tablet 100 mg PO BID #14 ta bs 08/30/23 gabapentin 300 mg capsule 300 mg PO .qhs #30 caps 08/13 12/05 sennosides 8.6 mg-docusate sodium 1 tab-cap PO QDAY #3 0 tabs 08/30/23 50 mg tablet (Senna-S) sulfamethoxazole 800 1 tab PO BID #14 tabs mg-trimethoprim 160 mg tablet (Bactrim DS) sulfamethoxazole 800 1 tab PO Q12H #20 tabs 10/09 mg-trimethoprim 160 mg tablet (Bactrim DS) naproxen 500 mg tablet 500 mg PO BID #60 tabs 12/11 tramadol 50 mg tablet 50 mg PO Q8H PRN pain #21 ta bs 10/22/24 acetaminophen 300 mg-codeine 30 mg 1 tab PO Q6H PRN pa in #28 tabs 03/26/24 tablet ketorolac 10 mg tablet 10 mg PO Q8H #7 tabs 5 ondansetron 4 mg disintegrating 4 mg PO Q8H #10 tabs 0 05/27/24 tablet meclizine 50 mg tablet 50 mg PO QDAY #14 tabs 06/04 meloxicam 7.5 mg tablet 7.5 mg PO QDAY #10 tabs 05/16 06/08 mupirocin 2 % topical ointment 1 applic topical BID Le ft knee 09/29/24 abrasion #15 grams oxycodone-acetaminophen 5 mg-325 1 tab PO Q6H PRN pain #10 tabs 09/29/24 mg tablet Allergies Allergy/AdvReac Type Severity Reaction Status Date / Time cat dander Allergy Severe Difficulty Verified 03/16/25 07:00 Breathing Review of Systems Review of Systems Systems Reviewed: All systems reviewed, normal except as documented Constitutional Constitutional: Reports system reviewed and no additional complaints, except as documented, Denies fatigue, Denies fever(s), Denies headache(s) and Denies weakness Eyes Eyes: Reports system reviewed and no additional complaints, except as documented, Denies blurry vision and Denies change in vision ENT Ears, Nose, Mouth, and Throat: Reports system reviewed and no additional complaints, except as documented, Denies otalgia, Denies headache(s), Denies nasal congestion, Denies throat swelling and Denies vertigo Cardiovascular Cardiovascular: Reports system reviewed and no additional complaints, except as documented, Reports chest pain, Denies dyspnea and Denies dyspnea on exertion Respiratory Respiratory: Reports system reviewed and no additional complaints, except as documented, Denies chest congestion, Denies cough, Denies dyspnea, Denies dyspnea on exertion and Denies wheezing Gastrointestinal Gastrointestinal: Reports system reviewed and no additional complaints, except as documented, Denies abdominal pain, Denies cramping, Denies nausea and Denies vomiting Genitourinary Genitourinary: Reports system reviewed and no additional complaints, except as documented Musculoskeletal Musculoskeletal: Reports system reviewed and no additional complaints, except as documented and Denies back pain Integumentary/Breasts Skin/Breast: Reports system reviewed and no additional complaints, except as documented and Denies wounds Neurologic Neurologic: Reports system reviewed and no additional complaints, except as documented, Denies confusion, Denies headache(s), Denies lack of coordination, Denies vertigo and Denies weakness Psychiatric Psychiatric: Reports system reviewed and no additional complaints, except as documented, Denies anxiety, Denies confusion, Denies depression, Denies paranoia, Denies suicidal ideation and Denies tactile hallucinations Endocrine Endocrine: Reports system reviewed and no additional complaints, except as documented and Denies fatigue Hematologic/Lymphatic Hematologic/Lymphatic: Reports system reviewed and no additional complaints, except as documented and Denies lymphadenopathy Allergic/Immunologic Allergic/Immunologic: Reports system reviewed and no additional complaints, except as documented, Denies throat swelling, Denies urticaria and Denies wheezing Past Medical History Past Medical History NEUROLOGIC: Negative Neurological Disorders, Cerebrovascular Accident, Transient Ischemic Attacks (TIA), Parkinson's Disease, Brain Tumor, Meningitis, Seizures, Cerebral Palsy, Amyotrophic Lateral Sclerosis (ALS/Bhumika Gehrig's), Paralysis, Peripheral Neuropathy, Torres's Palsy, Subdural Hematoma, Head Trauma, Spinal Cord Injury or Traumatic Brain Injury CARDIAC: Negative Cardiac Disorders, Myocardial Infarction, Cardiac Arrhythmia, Atrial Fibrillation, Angina, Heart Murmur, Coronary Artery Disease, Atherosclerotic Heart Disease, Peripheral Vascular Disease, Hypercholesterolemia, Aneurysm, Congestive Heart Failure, Congenital Heart Disease, Valvular Heart Disease, Rheumatic Fever, Cardiomyopathy, Edema, Pericarditis, Cellulitis, Deep Vein Thrombosis, Hypertension or Varicose Veins RESPIRATORY: Positive Asthma, Smoking, Smoking Cessation Counseling, Smoking Exposure and Tobacco Use; Negative Chronic Obstructive Pulmonary Disease (COPD), Pneumonia, Tuberculosis, Pulmonary Embolism or Sleep Apnea GASTROINTESTINAL: Positive Gastrointestinal Disorders, Gastroesophageal Reflux Disease and Obesity; Negative Hepatitis, Cirrhosis, Pancreatitis, Celiac Disease, Gall Bladder Disease, Gastrointestinal Bleed, Esophageal Varices, Cui's Esophagus, Colitis, Ulcerative Colitis, Diverticulitis, Ulcer, Colorectal Cancer, Irritable Bowel, Crohn's Disease, Obstructive Bowel, Hiatal Hernia or Hemorrhoids GENITOURINARY: Positive Genitourinary Disorders and Kidney Stones; Negative Renal Disease, Polycystic Kidney Disease, Neurogenic Bladder, Inguinal Hernia, Dialysis or Prostate Cancer REPRODUCTIVE: Positive Previous Pregnancies; Negative Breast Cancer, Endometriosis, Genital Herpes, Gonorrhea, Pelvic Inflammatory Disease, Syphilis, Testicular Cancer or Uterine Prolapse MUSCULOSKELETAL: Positive Musculoskeletal Disorders, Arthritis, Degenerative Disk Disease, Fractures and Degenerative Joint Disease; Negative Muscular Dystrophy, Myasthenia Gravis, Marfan's Syndrome, Bone Cancer, Rheumatoid Arthritis, Osteoporosis, Gout, Carpal Tunnel Syndrome, Fibromyalgia, Osteomyelitis or Poliovirus ENT: Negative Cataracts, Glaucoma, Blind, Retinal Detachment, Macular Degeneration, Ear Infection, Head Trauma or Eye Prosthesis ENDOCRINE: Positive Endocrine Disorders and Pituitary Disease; Negative Diabetes Mellitus Type 1, Diabetes Mellitus Type 2, Hypoglycemia, [place]'s Syndrome, [place]'s Disease, Hyperthyroidism, Hypothyroidism, Parathyroid Disease, Systemic Lupus Erythematosus, Syndrome of Inappropriate Antidiuretic Hormone (SIADH), Adrenal Disease or Graves' Disease HEMATOLOGIC: Negative Blood Disorders, Anemia, Leukemia, Hemophilia, Thalassemia, Sickle Cell Disease or Clotting Problems PSYCHO/SOCIAL: Positive Anxiety and Post Traumatic Stress Disorder; Negative Psychiatric Problems, Schizophrenia, Recreational Drug Use, Bipolar Disorder, Depression, Behavior Problems, Self-Mutilation, Attention Deficit Disorder, Attention Deficit Hyperactivity Disorder or Depression OTHER HISTORY: Positive Hospitalization and Chicken Pox; Negative Autoimmune Disease, Down Syndrome, Autism, Developmental Delay, Shingles, Falls, Blood Transfusions, Blood Transfusion Reaction, Anesthesia Reactions, Organ Transplant, Chemotherapy, Radiation Therapy, Hyperbaric Therapy, MRSA, VRSA, Vancomycin-Resistant Enterococci, Human Immunodeficiency Virus (HIV), Measles, Mumps, Rubella ([place] Measles), Pertussis, Clostridium Difficile, Cancer, Breast Cancer, Cervical Cancer, Colorectal Cancer, Lung Cancer, Ovarian Cancer, Prostate Cancer or Testicular Cancer Family History FAMILY HISTORY: Negative Family Psychiatric Problems, Family Respiratory Disorders, Family Cardiac Disorders, Family Gastrointestinal Problems, Family Cancer, Family Surgery or Family Anesthesia Reaction Surgical History SURGICAL: Positive Joint Replacement, Open Reduction Internal Fixation, Arthroscopy, Hysterectomy and Tubal Ligation; Negative Cardiac Surgery, Open Heart Surgery, Coronary Artery Bypass Graft, Valve Replacement, Vascular Surgery, Coronary Stent, Cardiac Catheterization, Pacemaker, Angiogram, Auto Implanted Cardiovert Defib, Carotid Endarterectomy, Endocrine Surgery, Thyroidectomy, Ear Surgery, Tympanostomy Tube, Eye Surgery, Nose Surgery, Oral Surgery, Tonsillectomy, Adenoidectomy, Cochlear Implant, Corneal Transplant, Throat Surgery, Abdominal Surgery, Tracheostomy, Gastric Bypass Surgery, Gastrostomy, Bowel Surgery, Nephrectomy, Transurethral Resection, Amputation, Neurologic Surgery, Brain Shunt, Mastectomy, Lumpectomy, Section or Organ Transplant Social History SMOKING STATUS: Never smoker SECOND HAND EXPOSURE: No ED Exam General Limitations: Present no limitations General appearance: Present alert and in no apparent distress Head Head exam: Present atraumatic Eye Eye exam: Present normal appearance, PERRL and EOMI ENT ENT exam: Present normal exam, normal oropharynx and mucous membranes moist Neck Neck exam: Present normal inspection, full ROM and trachea midline Chest Chest inspection: Present normal inspection and symmetric chest wall rise Respiratory Respiratory exam: Present normal lung sounds bilaterally; Absent respiratory distress, wheezes, stridor, accessory muscle use or prolonged expiratory phase Cardiovascular Cardiovascular exam: Present regular rate, normal rhythm, normal heart sounds, +S1 and +S2; Absent bradycardia, tachycardia, irregular rhythm, systolic murmur, diastolic murmur, rubs, gallop, clicks or JVD Abdominal Exam Abdominal exam: Present soft and normal bowel sounds Extremities Exam Extremities exam: Present normal inspection and full ROM Back Exam Back exam: Present normal inspection and full ROM Neurological Exam Neurological exam: Present alert, oriented X3 and CN II-XII intact Psychiatric Psychiatric exam: Present normal affect and normal mood Skin Skin exam: Present warm, dry, intact and normal color Course Quality Measures none Orders Category Date Time Status EKG (ED ONLY) *Do not use* NOW Care 03/16/25 07:13 Completed EKG (ED Only) Stat Exams 03/16/25 07:13 Draft XR chest 2V Stat Exams 03/16/25 07:13 Completed B-Type Natriuretic Peptide Stat Lab 03/16/25 08:00 Completed CBC Stat Lab 03/16/25 08:00 Completed Comprehensive Metabolic Panel Stat Lab 03/16/25 08:00 Completed Drug Screen,Urine Stat Lab 03/16/25 07:30 Completed Magnesium Stat Lab 03/16/25 08:00 Completed Partial Thromboplastin Time Stat Lab 03/16/25 08:00 Completed Prothrombin Time with INR Stat Lab 03/16/25 08:00 Completed Troponin I Stat Lab 03/16/25 08:00 Completed Urinalysis, C/S if Indicated Stat Lab 03/16/25 07:30 Completed Vital Signs Vital signs: Vital Signs Temperature 98.3 F 03/16/25 07:05 Pulse Rate 69 03/16/25 07:05 Respiratory Rate 19 03/16/25 07:05 Blood Pressure 128/79 03/16/25 07:05 Pulse Oximetry (%) 96 03/16/25 07:05 Oxygen Delivery Method Room Air 03/16/25 07:05 PROCEDURES: EKG Interpretation #1: Date of EK03/16/25 Time of EK:29 Rate: 73 Interpretation: Reviewed by me EKG Impression: Normal sinus rhythm Chest Pain MDM Narrative MDM Narrative:: 49-year-old female with no known medical history presents to the emergency room with a chief complaint of left-sided sternal chest pain that radiates to her back x 2 days Patient is hemodynamically stable and in no apparent distress Physical examination shows a strong and regular rhythm S1 and S2 noted Lung sounds are clear bilaterally there is no wheezing or any abnormal breath sounds EKG shows normal sinus rhythm at [address] deviation. CBC CMP troponin were all within normal limits Patient's heart score is low risk Patient was discharged and educated to follow-up with primary care provider in the next 24 to 48 hours and return to the emergency room for any evidence of worsening signs or symptoms Patient data External records reviewed:: [facility] previous records Clinical information provided by:: patient Social determinants that could affect healthcare access:: none Patient has the following chronic illnesses:: No chronic illness How is presenting disease/condition affected by chronic disease/condition?: no chronic disease Evaluation data The following diagnostics were reviewed and interpreted by me:: lab results and radiology exam(s) Lab and/or radiology exams considered but not ordered:: Labs and radiology exams considered and ordered Interpretation Summary: Chest [id number]: Normal heart size Minor atelectasis in the lingular segment No lobar pneumonia or pulmonary edema Moderate thoracic spondylosis IMPRESSION: Minor atelectasis in lingular segment No pneumonia or pulmonary edema Medications / Prescriptions Medications or Prescriptions considered but not ordered:: No medication given Medication administrations:: No medication given Consultations Consultation(s) initiated? (list below): No Diagnosis Chest Pain Differential Diagnosis: stable angina, unstable angina pectoris, atypical chest pain, st elevation myocardial infarction, costochondritis and chest pain Most likely diagnosis given after review of the tests above:: Chest pain Admission Indicated Admission indicated?: not indicated Admission Request Was there a request for admission?: No Disposition Plan Disposition Plan: Discharge Discharge Attestation Discharge Attestation: The patient and all family members were given an opportunity to ask questions and understood the discharge instructions. Discharge instructions specifically effects, indications for sooner follow up or return to the emergency department, and the expected course of current diagnosis. Patient condition: Stable Discharge Plan Plan Patient Disposition: HOME (Self Care) Discharge Disposition comment: Stable Prescriptions/Referrals Prescriptions/Med Rec: No Action duloxetine [Cymbalta] 30 mg capsule,delayed release(DR/EC) 30 mg PO BID sulfamethoxazole-trimethoprim [Bactrim DS] 800-160 mg tablet 1 tab PO BID Qty: 14 0RF naproxen 500 mg tablet 500 mg PO BID Qty: 60 0RF acetaminophen-codeine 300-30 mg tablet 1 tab PO Q6H PRN (Reason: pain) Qty: 28 0RF sulfamethoxazole-trimethoprim [Bactrim DS] 800-160 mg tablet 1 tab PO Q12H Qty: 20 0RF tramadol 50 mg tablet 50 mg PO Q8H PRN (Reason: pain) Qty: 21 0RF omeprazole 40 mg capsule,delayed release(DR/EC) 40 mg PO AC alprazolam [Xanax] 0.5 mg Tablet 0.5 mg PO BID prazosin 1 mg Capsule 1 mg PO QPM pregabalin [Lyrica] 150 mg Capsule 150 mg PO TID sennosides-docusate sodium [Senna-S] 8.6-50 mg tablet 1 tab-cap PO QDAY Qty: 30 0RF aspirin 81 mg tablet,delayed release (DR/EC) 81 mg PO BID Qty: 60 0RF acetaminophen [Acetaminophen Extra Strength] 500 mg tablet 1,000 mg PO Q6H MDD 1000mg PRN (Reason: pain) Qty: 90 0RF gabapentin 300 mg capsule 300 mg PO .qhs Qty: 30 0RF doxycycline hyclate 100 mg tablet 100 mg PO BID Qty: 14 0RF ketorolac 10 mg tablet 10 mg PO Q8H Qty: 7 0RF Rx Instructions: maximum total duration of 5 days from all oral, intranasal, or parenteral formulations ondansetron 4 mg tablet,disintegrating 4 mg PO Q8H Qty: 10 0RF mupirocin 2 % ointment 1 applic topical BID Qty: 15 0RF oxycodone-acetaminophen 5-325 mg tablet 1 tab PO Q6H MDD 4 tabs PRN (Reason: pain) Qty: 10 0RF meclizine 50 mg tablet 50 mg PO QDAY Qty: 14 0RF meloxicam 7.5 mg tablet 7.5 mg PO QDAY Qty: 10 0RF Referrals: Peyton Webb PA-C [Primary Care Provider, Family Practice] - In 1 week Problem List Clinical Impression: Atypical chest pain Patient/Caregiver Discharge Instructions Education Materials: ED Chest Pain, Noncardiac Additional Instructions: Please follow-up with your primary care provider in the next 24 to 48 hours Your cardiac examination was within normal limits. Your EKG and blood work were within normal limits For any evidence of worsening signs or symptoms return to emergency room immediately Print Language: Japanese Stand Alone Forms: Caitlin Award Info., Work/School Release, Patient Portal Info Letter PA/STATE EPIDEMIOLOGIST Supervising Physician PA/STATE EPIDEMIOLOGIST Supervising Physician: Dr. Barnett
[2025-03-16 08:11] LABS: Collection Type, Urine Clean Catch; RBC,Urine 0 /hpf (0-3); WBC,Urine 0 /hpf (0-5)
[2025-03-16 08:15] LABS: Basophils # (Auto) 0.2 Thou/mm3 (0.0-0.2); Basophils % (Auto) 2 % (0-2.5); Eosinophils # (Auto) 1.2 Thou/mm3 (0.0-0.5); Eosinophils % (Auto) 10 % (0-10); Hematocrit 32.4 % (36.0-46.0); Hemoglobin 10.0 g/dL (12.0-16.0); Immature Granulocytes Auto 0.03 Thou/mm3 (0.00-0.00); Lymphocytes # (Auto) 2.3 Thou/mm3 (1.0-4.8); Lymphocytes % (Auto) 19 % (10-50); Mean Corpuscular HGB Conc 30.9 g/dl (31.0-37.0); Mean Corpuscular Hemoglobin 25.4 pg (25.0-35.0); Mean Corpuscular Volume 82 fL (80-100); Monocytes # (Auto) 0.9 Thou/mm3 (0.0-0.8); Monocytes % (Auto) 7 % (0-12); Neutrophils # (Auto) 7.4 Thou/mm3 (1.8-7.7); Neutrophils % (Auto) 62 % (37-80); Nucleated Red Blood Cell # 0.00 Thou/mm3 (0.00-0.00); Nucleated Red Blood Cell % 0 /100 WBC (0); Platelet Count 423 Thou/mm3 (140-440); RDW Standard Deviation 62.9 fL (36.4-46.3); Red Blood Count 3.94 Miln/mm3 (4.00-5.20); White Blood Count 11.9 Thou/mm3 (3.6-11.0)
[2025-03-16 08:19] LABS: Bacteria,Urine Rare; Bilirubin,Urine Negative (Negative); Blood,Urine Negative (Negative); Clarity,Urine Clear (Clear/Hazy); Color,Urine Lt-Yellow (Lt Yel-Yel); Culture Indicated,Urine Not Indicated; Glucose, Urine Negative (Negative); Ketones,Urine Negative (Negative); Leukocyte Esterase,Urine Negative (Negative); Nitrite,Urine Negative (Negative); PH,Urine 7.5 (5.0-7.0); Protein,Urine Negative (Neg - Trace); Specific Gravity,Urine 1.010 (1.001-1.035); Squamous Epithelial Cell,Urine 1 /hpf (0-5); Urobilinogen,Urine Negative mg/dL (0.0-1.0)
[2025-03-16 08:29] LABS: INR 0.9 (0.9-1.3); Partial Thromboplastin Time 27.9 Seconds (22.0-36.0); Prothrombin Time 10.0 Seconds (9.0-12.2)
[2025-03-16 08:44] LABS: Amphetamine/Methamp Scrn,U Negative (Negative); Barbiturate Screen,Urine Negative (Negative); Benzodiazepines Screen,Urine Positive (Negative); Benzoylecgonine Screen, Ur Negative (Negative); Fentanyl Screen,Urine Negative (Negative); Opiate Screen,Urine Positive (Negative); THC Screen,Urine Positive (Negative)
[2025-03-16 08:46] LABS: B-Type Natriuretic Peptide 64 pg/mL (0-100)
[2025-03-16 09:02] LABS: Alanine Aminotransferase < 7 U/L (10-49); Albumin, Serum 4.2 gm/dL (3.5-5.0); Albumin/Globulin Ratio 2.0 (1.2-2.2); Alkaline Phosphatase 125 U/L (46-116); Anion Gap 3 (7-16); Aspartate Amino Transferase 11 U/L (0-34); BUN/Creatinine Ratio 11 Ratio (12-20); Bilirubin,Total < 0.2 mg/dL (0.3-1.2); Blood Urea Nitrogen 9 mg/dL (9-23); Calcium 9.1 mg/dL (8.3-10.6); Calcium (Corrected) 9.1 mg/dL (8.5-10.1); Carbon Dioxide 25.4 mMol/L (20.0-31.0); Chloride 115 mMol/L (98-107); Creatinine (Component) 0.8 mg/dL (0.6-1.3); Estimated Creatinine Clearance 111.1 mL/min (>60); Globulin 2.1 gm/dL (2.3-3.5); Glucose 105 mg/dL (74-106); Magnesium 2.2 mg/dL (1.6-2.6); Osmolality,Calculated 283 (275-295); Potassium 4.3 mMol/L (3.4-5.1); Sodium 143 mMol/L (136-145); Total Protein 6.3 gm/dL (5.7-8.2); Troponin I < 0.002 ng/mL (0.0-0.045); eGFR > 60 See Note
== END 2025-03-16 09:35 | disposition home or self-care (01) ==
PROVIDERS: Nurse Practitioner Family; Emergency Provider Emergency Medicine; PCP Physician Assistant
DX: R07.89 Other chest pain (principal)
CPT/HCPCS: 36415; 71046; 80053; 80307; 81001; 83735; 83880; 84484; 85025; 85610; 85730; 93005; 99283

== ENCOUNTER 2025-03-23 17:14 | Emergency (ER) | payer MEDICARE, MEDICAID, SELFPAY ==
[2025-03-23 17:50] VITALS: BP 134/81; PULSE 80; RESP 16; TEMP 37.2; O2SAT 96; BMI 41.1
--- NOTE | 2025-03-23 18:42 | PD.EDSKIN ---
ED Skin Abcess FB-RME/HPI General Chief complaint: Skin/Abscess/Foreign Body Stated complaint: BOIL TO LEFT GROIN Time Seen by Provider: 03/23/25 18:29 Arrival date/time: 03/23/25 17:14 This is a case of 49-year-old female with no medical history came in in the emergency room due to painful lump on the left mons pubis for 1 week due to swelling redness and pain thus patient decided to sought consult here in the emergency room Limitations: no limitations Related Data Home Medications ?Medication ?Instructions ?Recorded ?Confirmed alprazolam 0.5 mg tablet (Xanax) 0.5 mg PO BID 07/18/20 03/26/24 omeprazole 40 mg capsule,delayed 40 mg PO AC 08/31/21 03/26/24 release duloxetine 30 mg capsule,delayed 30 mg PO BID 08/22/22 03/26/24 release (Cymbalta) prazosin 1 mg capsule 1 mg PO QPM 05/29/23 03/26/24 pregabalin 150 mg capsule (Lyrica) 150 mg PO TID 05/29/23 03/26/24 Previous Rx's ?Medication ?Instructions ?Recorded acetaminophen 500 mg tablet 1,000 mg (2 x 500 mg) PO Q6H PRN 08/30/23 (Acetaminophen Extra Strength) pain #90 tabs aspirin 81 mg tablet,delayed 81 mg PO BID #60 tabs 08/30/23 release doxycycline hyclate 100 mg tablet 100 mg PO BID #14 tabs 08/30/23 gabapentin 300 mg capsule 300 mg PO .qhs #30 caps 08/30/23 sennosides 8.6 mg-docusate sodium 1 tab-cap PO QDAY #30 tabs 08/30/23 50 mg tablet (Senna-S) sulfamethoxazole 800 1 tab PO BID #14 tabs 10/09/23 mg-trimethoprim 160 mg tablet (Bactrim DS) sulfamethoxazole 800 1 tab PO Q12H #20 tabs 10/10/23 mg-trimethoprim 160 mg tablet (Bactrim DS) naproxen 500 mg tablet 500 mg PO BID #60 tabs 12/12/23 tramadol 50 mg tablet 50 mg PO Q8H PRN pain #21 tabs 03/05/24 acetaminophen 300 mg-codeine 30 mg 1 tab PO Q6H PRN pain #28 tabs 03/26/24 tablet ketorolac 10 mg tablet 10 mg PO Q8H #7 tabs 05/27/24 ondansetron 4 mg disintegrating 4 mg PO Q8H #10 tabs 05/27/24 tablet meclizine 50 mg tablet 50 mg PO QDAY #14 tabs 06/04/24 meloxicam 7.5 mg tablet 7.5 mg PO QDAY #10 tabs 06/04/24 mupirocin 2 % topical ointment 1 applic topical BID Left knee 09/29/24 abrasion #15 grams oxycodone-acetaminophen 5 mg-325 1 tab PO Q6H PRN pain #10 tabs 09/29/24 mg tablet cephalexin 500 mg capsule 500 mg PO QID #40 caps 03/23/25 hydrocodone 5 mg-acetaminophen 325 1 tab PO Q6H PRN pain #12 tabs 03/23/25 mg tablet mupirocin 2 % topical ointment 1 applic topical BID #22 grams 03/23/25 (Centany) sulfamethoxazole 400 1 tab PO BID #20 tabs 03/23/25 mg-trimethoprim 80 mg tablet (Bactrim) Allergies Allergy/AdvReac Type Severity Reaction Status Date / Time cat dander Allergy Severe Difficulty Verified 03/16/25 07:00 Breathing Review of Systems Review of Systems Systems Reviewed: All systems reviewed, normal except as documented Constitutional Constitutional: Reports system reviewed and no additional complaints, except as documented and Reports as per HPI Cardiovascular Cardiovascular: Reports system reviewed and no additional complaints, except as documented and Reports as per HPI Gastrointestinal Gastrointestinal: Reports system reviewed and no additional complaints, except as documented and Reports as per HPI Musculoskeletal Musculoskeletal: Reports system reviewed and no additional complaints, except as documented and Reports as per HPI Neurologic Neurologic: Reports system reviewed and no additional complaints, except as documented and Reports as per HPI Past Medical History Past Medical History NEUROLOGIC: Negative Neurological Disorders, Cerebrovascular Accident, Transient Ischemic Attacks (TIA), Parkinson's Disease, Brain Tumor, Meningitis, Seizures, Cerebral Palsy, Amyotrophic Lateral Sclerosis (ALS/Bhumika Gehrig's), Paralysis, Peripheral Neuropathy, Torres's Palsy, Subdural Hematoma, Head Trauma, Spinal Cord Injury or Traumatic Brain Injury CARDIAC: Negative Cardiac Disorders, Myocardial Infarction, Cardiac Arrhythmia, Atrial Fibrillation, Angina, Heart Murmur, Coronary Artery Disease, Atherosclerotic Heart Disease, Peripheral Vascular Disease, Hypercholesterolemia, Aneurysm, Congestive Heart Failure, Congenital Heart Disease, Valvular Heart Disease, Rheumatic Fever, Cardiomyopathy, Edema, Pericarditis, Cellulitis, Deep Vein Thrombosis, Hypertension or Varicose Veins RESPIRATORY: Positive Asthma, Smoking, Smoking Cessation Counseling, Smoking Exposure and Tobacco Use; Negative Chronic Obstructive Pulmonary Disease (COPD), Pneumonia, Tuberculosis, Pulmonary Embolism or Sleep Apnea GASTROINTESTINAL: Positive Gastrointestinal Disorders, Gastroesophageal Reflux Disease and Obesity; Negative Hepatitis, Cirrhosis, Pancreatitis, Celiac Disease, Gall Bladder Disease, Gastrointestinal Bleed, Esophageal Varices, Cui's Esophagus, Colitis, Ulcerative Colitis, Diverticulitis, Ulcer, Colorectal Cancer, Irritable Bowel, Crohn's Disease, Obstructive Bowel, Hiatal Hernia or Hemorrhoids GENITOURINARY: Positive Genitourinary Disorders and Kidney Stones; Negative Renal Disease, Polycystic Kidney Disease, Neurogenic Bladder, Inguinal Hernia, Dialysis or Prostate Cancer REPRODUCTIVE: Positive Previous Pregnancies; Negative Breast Cancer, Endometriosis, Genital Herpes, Gonorrhea, Pelvic Inflammatory Disease, Syphilis, Testicular Cancer or Uterine Prolapse MUSCULOSKELETAL: Positive Musculoskeletal Disorders, Arthritis, Degenerative Disk Disease, Fractures and Degenerative Joint Disease; Negative Muscular Dystrophy, Myasthenia Gravis, Marfan's Syndrome, Bone Cancer, Rheumatoid Arthritis, Osteoporosis, Gout, Carpal Tunnel Syndrome, Fibromyalgia, Osteomyelitis or Poliovirus ENT: Negative Cataracts, Glaucoma, Blind, Retinal Detachment, Macular Degeneration, Ear Infection, Head Trauma or Eye Prosthesis ENDOCRINE: Positive Endocrine Disorders and Pituitary Disease; Negative Diabetes Mellitus Type 1, Diabetes Mellitus Type 2, Hypoglycemia, [place]'s Syndrome, [place]'s Disease, Hyperthyroidism, Hypothyroidism, Parathyroid Disease, Systemic Lupus Erythematosus, Syndrome of Inappropriate Antidiuretic Hormone (SIADH), Adrenal Disease or Graves' Disease HEMATOLOGIC: Negative Blood Disorders, Anemia, Leukemia, Hemophilia, Thalassemia, Sickle Cell Disease or Clotting Problems PSYCHO/SOCIAL: Positive Anxiety and Post Traumatic Stress Disorder; Negative Psychiatric Problems, Schizophrenia, Recreational Drug Use, Bipolar Disorder, Depression, Behavior Problems, Self-Mutilation, Attention Deficit Disorder, Attention Deficit Hyperactivity Disorder or Depression OTHER HISTORY: Positive Hospitalization and Chicken Pox; Negative Autoimmune Disease, Down Syndrome, Autism, Developmental Delay, Shingles, Falls, Blood Transfusions, Blood Transfusion Reaction, Anesthesia Reactions, Organ Transplant, Chemotherapy, Radiation Therapy, Hyperbaric Therapy, MRSA, VRSA, Vancomycin-Resistant Enterococci, Human Immunodeficiency Virus (HIV), Measles, Mumps, Rubella ([place] Measles), Pertussis, Clostridium Difficile, Cancer, Breast Cancer, Cervical Cancer, Colorectal Cancer, Lung Cancer, Ovarian Cancer, Prostate Cancer or Testicular Cancer Family History FAMILY HISTORY: Negative Family Psychiatric Problems, Family Respiratory Disorders, Family Cardiac Disorders, Family Gastrointestinal Problems, Family Cancer, Family Surgery or Family Anesthesia Reaction Surgical History SURGICAL: Positive Joint Replacement, Open Reduction Internal Fixation, Arthroscopy, Hysterectomy and Tubal Ligation; Negative Cardiac Surgery, Open Heart Surgery, Coronary Artery Bypass Graft, Valve Replacement, Vascular Surgery, Coronary Stent, Cardiac Catheterization, Pacemaker, Angiogram, Auto Implanted Cardiovert Defib, Carotid Endarterectomy, Endocrine Surgery, Thyroidectomy, Ear Surgery, Tympanostomy Tube, Eye Surgery, Nose Surgery, Oral Surgery, Tonsillectomy, Adenoidectomy, Cochlear Implant, Corneal Transplant, Throat Surgery, Abdominal Surgery, Tracheostomy, Gastric Bypass Surgery, Gastrostomy, Bowel Surgery, Nephrectomy, Transurethral Resection, Amputation, Neurologic Surgery, Brain Shunt, Mastectomy, Lumpectomy, Section or Organ Transplant Social History SMOKING STATUS: Never smoker SECOND HAND EXPOSURE: No ED Exam General Limitations: Present no limitations General appearance: Present alert, in no apparent distress and other (Patient is awake alert oriented not in distress nontoxic looking well-hydrated well-nourished) Head Head exam: Present atraumatic, normocephalic and normal inspection Eye Eye exam: Present normal appearance, PERRL and EOMI ENT ENT exam: Present normal exam, normal oropharynx and mucous membranes moist Neck Neck exam: Present normal inspection, full ROM and trachea midline; Absent tenderness, meningismus, lymphadenopathy or thyromegaly Chest Chest inspection: Present normal inspection and symmetric chest wall rise; Absent tenderness Respiratory Respiratory exam: Present normal lung sounds bilaterally; Absent respiratory distress, wheezes, stridor, accessory muscle use or prolonged expiratory phase Cardiovascular Cardiovascular exam: Present regular rate, normal rhythm and normal heart sounds; Absent bradycardia, tachycardia, irregular rhythm, systolic murmur or diastolic murmur Abdominal Exam Abdominal exam: Present soft and normal bowel sounds; Absent distention, tenderness, guarding, rebound, rigidity, diminished bowel sounds, hyperactive bowel sounds, hypoactive bowel sounds or organomegaly Extremities Exam Extremities exam: Present normal inspection and full ROM Back Exam Back exam: Present normal inspection and full ROM Neurological Exam Neurological exam: Present alert, oriented X3, CN II-XII intact, normal gait and reflexes normal; Absent motor sensory deficit Psychiatric Psychiatric exam: Present normal affect and normal mood Skin Skin exam: Present warm, dry, intact, normal color and other (Noted a 3 x 4 cm lump on the left mons pubis extending to the left groin tender to touch warm to touch with 2 small open wound but no drainage some redness and swelling no cellulitis no ulcer) Course Quality Measures none Orders Category Date Time Status Clindamycin Vial [Cleocin vial] Med 03/23/25 18:40 Discontinued 600 mg IM X1 ONE Vital Signs Vital signs: Vital Signs Temperature 98.9 F 03/23/25 17:50 Pulse Rate 80 03/23/25 17:50 Respiratory Rate 16 03/23/25 17:50 Blood Pressure 134/81 H 03/23/25 17:50 Pulse Oximetry (%) 96 03/23/25 17:50 Oxygen Delivery Method Room Air 03/23/25 17:50 Oxygen saturation is 96% on room air Skin / Abscess / Foreign Body MDM Narrative MDM Narrative:: This is a case of 49-year-old female with no medical history came in in the emergency room due to painful lump on the left mons pubis for 1 week due to swelling redness and pain thus patient decided to sought consult here in the emergency room patient is awake alert oriented not in distress nontoxic looking well-hydrated well-nourished Noted a 3 x 4 cm lump on the left mons pubis extending to the left groin tender to touch warm to touch with 2 small open wound but no drainage some redness and swelling no cellulitis no ulcer based on my physical examination and history patient symptoms suggestive of cutaneous abscess at the time of exam there is no indication to perform incision and drainage because the abscess is still hide patient will start with antibiotic clindamycin IM and I prescribed Bactrim and cephalexin to then follow-up in 2 days for reevaluation and possible incision and drainage for any worsening symptoms or symptoms return precaution in the ER is advised Patient was discharged with comfortable condition walking with stable gait. Patient verbalized no further complains explained diagnosis and answered patient question. Patient is comfortable with the proposed management plan including the need to follow up with his/her primary care physician and any specialist if applicable Discussed patient for any urgent condition or worsening sx, He/She needed to go to emergency room immediately or call 911. Patient acknowledge the responsibility to follow up as instructed and to monitor her/his symptoms. For any persistence of the symptoms for more than 3-5 days return precaution advised. Discussed the result of the test and was given printed discharge instruction Patient data External records reviewed:: [facility] previous records Clinical information provided by:: patient Social determinants that could affect healthcare access:: none Patient has the following chronic illnesses:: None How is presenting disease/condition affected by chronic disease/condition?: no chronic disease Evaluation data The following diagnostics were reviewed and interpreted by me:: other (specify) (None) Lab and/or radiology exams considered but not ordered:: None Interpretation Summary: None Medications / Prescriptions Medications or Prescriptions considered but not ordered:: Given Medication administrations:: Medication Administration History Discontinued Medications Clindamycin Phosphate (Clindamycin Phos Inj 150 Mg/Ml Vial 6 Ml) 600 mg IM X1 ONE Stop: 03/23/25 18:41 Given Consultations Consultation(s) initiated? (list below): No Diagnosis Skin/Abscess Differential Diagnosis: abscess of skin or subcutaneous tissue and cellulitis Most likely diagnosis given after review of the tests above:: Abscess Admission Indicated Admission indicated?: not indicated Explain why admission is indicated or not indicated:: Not indicated Admission Request Was there a request for admission?: No Admission Attestation Admission request attestation: Not indicated Disposition Plan Disposition Plan: Discharge Discharge Attestation Discharge Attestation: The patient and all family members were given an opportunity to ask questions and understood the discharge instructions. Discharge instructions specifically effects, indications for sooner follow up or return to the emergency department, and the expected course of current diagnosis. Patient condition: Stable Discharge Plan Plan Patient Disposition: HOME (Self Care) Patient condition on transfer: Stable Prescriptions/Referrals Prescriptions/Med Rec: New cephalexin 500 mg capsule 500 mg PO QID Qty: 40 0RF sulfamethoxazole-trimethoprim [Bactrim] 400-80 mg tablet 1 tab PO BID Qty: 20 0RF hydrocodone-acetaminophen 5-325 mg tablet 1 tab PO Q6H MDD max 4 tabs per day PRN (Reason: pain) Qty: 12 0RF mupirocin [Centany] 2 % ointment 1 applic topical BID Qty: 22 0RF No Action duloxetine [Cymbalta] 30 mg capsule,delayed release(DR/EC) 30 mg PO BID sulfamethoxazole-trimethoprim [Bactrim DS] 800-160 mg tablet 1 tab PO BID Qty: 14 0RF naproxen 500 mg tablet 500 mg PO BID Qty: 60 0RF acetaminophen-codeine 300-30 mg tablet 1 tab PO Q6H PRN (Reason: pain) Qty: 28 0RF sulfamethoxazole-trimethoprim [Bactrim DS] 800-160 mg tablet 1 tab PO Q12H Qty: 20 0RF tramadol 50 mg tablet 50 mg PO Q8H PRN (Reason: pain) Qty: 21 0RF omeprazole 40 mg capsule,delayed release(DR/EC) 40 mg PO AC alprazolam [Xanax] 0.5 mg Tablet 0.5 mg PO BID prazosin 1 mg Capsule 1 mg PO QPM pregabalin [Lyrica] 150 mg Capsule 150 mg PO TID sennosides-docusate sodium [Senna-S] 8.6-50 mg tablet 1 tab-cap PO QDAY Qty: 30 0RF aspirin 81 mg tablet,delayed release (DR/EC) 81 mg PO BID Qty: 60 0RF acetaminophen [Acetaminophen Extra Strength] 500 mg tablet 1,000 mg PO Q6H MDD 1000mg PRN (Reason: pain) Qty: 90 0RF gabapentin 300 mg capsule 300 mg PO .qhs Qty: 30 0RF doxycycline hyclate 100 mg tablet 100 mg PO BID Qty: 14 0RF ketorolac 10 mg tablet 10 mg PO Q8H Qty: 7 0RF Rx Instructions: maximum total duration of 5 days from all oral, intranasal, or parenteral formulations ondansetron 4 mg tablet,disintegrating 4 mg PO Q8H Qty: 10 0RF mupirocin 2 % ointment 1 applic topical BID Qty: 15 0RF oxycodone-acetaminophen 5-325 mg tablet 1 tab PO Q6H MDD 4 tabs PRN (Reason: pain) Qty: 10 0RF meclizine 50 mg tablet 50 mg PO QDAY Qty: 14 0RF meloxicam 7.5 mg tablet 7.5 mg PO QDAY Qty: 10 0RF Problem List Clinical Impression: Cutaneous abscess of groin Patient/Caregiver Discharge Instructions Education Materials: ED Abscess Antibiotic ... Additional Instructions: Follow-up with your primary care physician in 2 days for reevaluation and wound check return to the emergency room in 2 days for reevaluation and possible incision and drainage for any worsening symptoms or any emergent concern call 911 or go to the nearest emergency room take your medication as directed finish the course of antibiotic keep the area clean and dry Print Language: Burkinan Stand Alone Forms: Caitlin Award Info., Patient Portal Info Letter PA/BUNDLE WRAPPER Supervising Physician PA/BUNDLE WRAPPER Supervising Physician: Dr. Nayeli Patrick
[2025-03-23] MEDS: CLINDAMYCIN PHOS INJ 150 MG/ML VIAL 6 ML 600 MG IM (19:24)
== END 2025-03-23 20:27 | disposition home or self-care (01) ==
LOC: SERX 19:25
PROVIDERS: Emergency Provider Emergency Medicine; PCP Physician Assistant
DX: L02.214 Cutaneous abscess of groin (principal)
CPT/HCPCS: 96372; 99282; J0736

== ENCOUNTER 2025-04-20 19:44 | Emergency (ER) | payer MEDICARE, MEDICAID, SELFPAY ==
[2025-04-20 19:45] VITALS: BMI 41.4
[2025-04-20 19:56] VITALS: BP 146/83; PULSE 88; RESP 20; TEMP 37.1; O2SAT 99
--- NOTE | 2025-04-20 20:03 | XR_ITS ---
Examination: Knee, left, 3 views Technique: Knee AP, lateral, oblique 3 views Date and time of exam: April, 2012 hours INDICATIONS: Patient fell today with injury to the knee, knee pain. FINDINGS: Total left knee arthroplasty. Satisfactory alignment No fracture IMPRESSION: No acute fracture
--- NOTE | 2025-04-20 20:03 | XR_ITS ---
Examination: Foot, left, 3 views Technique: AP, oblique, lateral views foot, 3 views Date and time of exam: April 20, 20252017 hours INDICATIONS: Patient fell today with injury to the foot, first digit pain FINDINGS: 4 mm plantar bony calcaneal spur Suspicious for small fracture at the base of the distal phalanx first digit nondisplaced No dislocation IMPRESSION: Suspicious for nondisplaced fracture at the base of the distal phalanx first digit
--- NOTE | 2025-04-20 20:05 | PD.EDLOWEX ---
Lower Extremity Injury RME/HPI General Chief Complaint: Extremity Injury, Lower Stated Complaint: BILATERAL KNEE AND HIP PAIN AFTER FALL YESTERDAY Time Seen by Provider: 04/20/25 19:46 Arrival date/time: 04/20/25 19:44 Limitations: no limitations RME / HPI RME / HPI Narrative: 49yo female here with complaint of left great toe pain, acute on chronic bilateral lower extremity pain HPI patient fell yesterday, has a significant history of bilateral knee replacements with the left knee requiring revision multiple times. The patient states after the fall she has had worsening pain and her [place]'s and ibuprofen daily medication she has at home are not working .patient denies LOC or LOC is not on any blood thinners. States she twisted her body trying to avoid landing on her left knee and most of the impact was taken on by her left foot that is now bruised. She is sore in the hips bilaterally and left knee and left foot. Related Data Home Medications ?Medication ?Instructions ?Recorded ?Confirmed alprazolam 0.5 mg tablet (Xanax) 0.5 mg PO BID 07/18/20 03/26/24 omeprazole 40 mg capsule,delayed 40 mg PO AC 08/31/21 03/26/24 release duloxetine 30 mg capsule,delayed 30 mg PO BID 08/22/22 03/26/24 release (Cymbalta) prazosin 1 mg capsule 1 mg PO QPM 05/29/23 03/26/24 pregabalin 150 mg capsule (Lyrica) 150 mg PO TID 05/29/23 03/26/24 Previous Rx's ?Medication ?Instructions ?Recorded acetaminophen 500 mg tablet 1,000 mg (2 x 500 mg) PO Q6H PRN 08/30/23 (Acetaminophen Extra Strength) pain #90 tabs aspirin 81 mg tablet,delayed 81 mg PO BID #60 tabs 08/30/23 release doxycycline hyclate 100 mg tablet 100 mg PO BID #14 tabs 08/30/23 gabapentin 300 mg capsule 300 mg PO .qhs #30 caps 08/30/23 sennosides 8.6 mg-docusate sodium 1 tab-cap PO QDAY #30 tabs 08/30/23 50 mg tablet (Senna-S) sulfamethoxazole 800 1 tab PO BID #14 tabs 10/09/23 mg-trimethoprim 160 mg tablet (Bactrim DS) sulfamethoxazole 800 1 tab PO Q12H #20 tabs 10/10/23 mg-trimethoprim 160 mg tablet (Bactrim DS) naproxen 500 mg tablet 500 mg PO BID #60 tabs 12/12/23 tramadol 50 mg tablet 50 mg PO Q8H PRN pain #21 tabs 03/05/24 acetaminophen 300 mg-codeine 30 mg 1 tab PO Q6H PRN pain #28 tabs 03/26/24 tablet ketorolac 10 mg tablet 10 mg PO Q8H #7 tabs 05/27/24 ondansetron 4 mg disintegrating 4 mg PO Q8H #10 tabs 05/27/24 tablet meclizine 50 mg tablet 50 mg PO QDAY #14 tabs 06/04/24 meloxicam 7.5 mg tablet 7.5 mg PO QDAY #10 tabs 06/04/24 mupirocin 2 % topical ointment 1 applic topical BID Left knee 09/29/24 abrasion #15 grams oxycodone-acetaminophen 5 mg-325 1 tab PO Q6H PRN pain #10 tabs 09/29/24 mg tablet cephalexin 500 mg capsule 500 mg PO QID #40 caps 03/23/25 hydrocodone 5 mg-acetaminophen 325 1 tab PO Q6H PRN pain #12 tabs 03/23/25 mg tablet mupirocin 2 % topical ointment 1 applic topical BID #22 grams 03/23/25 (Centany) sulfamethoxazole 400 1 tab PO BID #20 tabs 03/23/25 mg-trimethoprim 80 mg tablet (Bactrim) Allergies Allergy/AdvReac Type Severity Reaction Status Date / Time cat dander Allergy Severe Difficulty Verified 03/16/25 07:00 Breathing Review of Systems Review of Systems Systems Reviewed: All systems reviewed, normal except as documented Constitutional Constitutional: Denies fever(s) Musculoskeletal Musculoskeletal: Reports as per HPI ED Exam General Limitations: Present no limitations General appearance: Present alert and other (Mild distress ambulating with cane) Head Head exam: Present atraumatic Eye Eye exam: Present normal appearance, PERRL and EOMI ENT ENT exam: Present normal exam, normal oropharynx and mucous membranes moist Neck Neck exam: Present normal inspection, full ROM and trachea midline Chest Chest inspection: Present normal inspection and symmetric chest wall rise Respiratory Respiratory exam: Present normal lung sounds bilaterally Cardiovascular Cardiovascular exam: Present regular rate, normal rhythm and normal heart sounds Abdominal Exam Abdominal exam: Present soft and normal bowel sounds Extremities Exam Extremities exam: Present other (Large left knee scar with TTP, left foot with ecchymosis from base of great toe to DIP, however patient is weightbearing with wooden cane. Bilateral hip TTP) Back Exam Back exam: Present normal inspection and full ROM Neurological Exam Neurological exam: Present alert, oriented X3 and CN II-XII intact Psychiatric Psychiatric exam: Present normal affect and normal mood Skin Skin exam: Present warm, dry, intact and normal color Course Quality Measures none Orders Category Date Time Status Splint / Immobilizer STAT Care 04/20/25 20:39 Completed XR foot comp LT min 3V Stat Exams 04/20/25 20:03 Completed XR knee LT 3V Stat Exams 04/20/25 20:03 Completed Ketorolac Inj [Toradol Inj] Med 04/20/25 20:03 Discontinued 30 mg IM X1 ONE oxyCODONE/APAP 5/325 [Percocet 5/325] Med 04/20/25 20:03 Discontinued 1 tab PO X1 ONE Vital Signs Vital signs: Vital Signs Temperature 98.7 F 04/20/25 19:56 Pulse Rate 88 04/20/25 19:56 Respiratory Rate 20 04/20/25 19:56 Blood Pressure 146/83 H 04/20/25 19:56 Pulse Oximetry (%) 99 04/20/25 19:56 Oxygen Delivery Method Room Air 04/20/25 19:56 PROCEDURES: Splint Fabrication: Pre-Fabricated Type: Other Reason for Splint: Pain Management Site condition: Bruised and Edematous Circulation Distal to Splint: Yes Movement Distal to Splint: Yes Senation Distal to Splint: Yes Tolerance: Tolerates Well Extremity Injury, Lower Patient data External records reviewed:: [facility] previous records Clinical information provided by:: patient Social determinants that could affect healthcare access:: other (specify) (No PCP appointment on the weekend) Patient has the following chronic illnesses:: hx of bilateral knee replacements How is presenting disease/condition affected by chronic disease/condition?: exacerbated by Evaluation data The following diagnostics were reviewed and interpreted by me:: radiology exam(s) Lab and/or radiology exams considered but not ordered:: Bilateral hip x-ray considered however given walking with full weight unlikely fractured hips Interpretation Summary: Left knee within normal limits Left foot suggest fracture to left great toe Medications / Prescriptions Medications or Prescriptions considered but not ordered:: Narcotics for home were considered however patient is on a pain contract which is a violation to send new pain medication Medication administrations:: Medication Administration History Discontinued Medications Ketorolac Tromethamine (Ketorolac Inj 30 Mg/Ml Vial) 30 mg IM X1 ONE Stop: 04/20/25 20:04 Last Admin: 04/20/25 20:13 Dose: 30 mg Documented By: CLAUDY Oxycodone/Acetaminophen (Oxycodone/Apap 5/325 Tablet) 1 tab PO X1 ONE Stop: 04/20/25 20:04 Last Admin: 04/20/25 20:14 Dose: 1 tab Documented By: CLAUDY See above Consultations Consultation(s) initiated? (list below): No Diagnosis Extremity Injury, Lower Differential Diagnosis: ankle sprain and strain, acute internal derangement of knee, fracture of femur and fracture of toe Most likely diagnosis given after review of the tests above:: Left knee contusion Fall Left great toe fracture Admission Indicated Admission indicated?: not indicated Admission Request Was there a request for admission?: No Disposition Plan Disposition Plan: Discharge Discharge Attestation Discharge Attestation: The patient and all family members were given an opportunity to ask questions and understood the discharge instructions. Discharge instructions specifically effects, indications for sooner follow up or return to the emergency department, and the expected course of current diagnosis. Patient condition: Stable Discharge Plan Plan Patient Disposition: HOME (Self Care) Discharge Disposition comment: f/u with pcp in 2-3days Prescriptions/Referrals Prescriptions/Med Rec: No Action duloxetine [Cymbalta] 30 mg capsule,delayed release(DR/EC) 30 mg PO BID sulfamethoxazole-trimethoprim [Bactrim DS] 800-160 mg tablet 1 tab PO BID Qty: 14 0RF naproxen 500 mg tablet 500 mg PO BID Qty: 60 0RF acetaminophen-codeine 300-30 mg tablet 1 tab PO Q6H PRN (Reason: pain) Qty: 28 0RF sulfamethoxazole-trimethoprim [Bactrim DS] 800-160 mg tablet 1 tab PO Q12H Qty: 20 0RF tramadol 50 mg tablet 50 mg PO Q8H PRN (Reason: pain) Qty: 21 0RF omeprazole 40 mg capsule,delayed release(DR/EC) 40 mg PO AC alprazolam [Xanax] 0.5 mg Tablet 0.5 mg PO BID prazosin 1 mg Capsule 1 mg PO QPM pregabalin [Lyrica] 150 mg Capsule 150 mg PO TID sennosides-docusate sodium [Senna-S] 8.6-50 mg tablet 1 tab-cap PO QDAY Qty: 30 0RF aspirin 81 mg tablet,delayed release (DR/EC) 81 mg PO BID Qty: 60 0RF acetaminophen [Acetaminophen Extra Strength] 500 mg tablet 1,000 mg PO Q6H MDD 1000mg PRN (Reason: pain) Qty: 90 0RF gabapentin 300 mg capsule 300 mg PO .qhs Qty: 30 0RF doxycycline hyclate 100 mg tablet 100 mg PO BID Qty: 14 0RF ketorolac 10 mg tablet 10 mg PO Q8H Qty: 7 0RF Rx Instructions: maximum total duration of 5 days from all oral, intranasal, or parenteral formulations ondansetron 4 mg tablet,disintegrating 4 mg PO Q8H Qty: 10 0RF mupirocin 2 % ointment 1 applic topical BID Qty: 15 0RF oxycodone-acetaminophen 5-325 mg tablet 1 tab PO Q6H MDD 4 tabs PRN (Reason: pain) Qty: 10 0RF cephalexin 500 mg capsule 500 mg PO QID Qty: 40 0RF sulfamethoxazole-trimethoprim [Bactrim] 400-80 mg tablet 1 tab PO BID Qty: 20 0RF hydrocodone-acetaminophen 5-325 mg tablet 1 tab PO Q6H MDD max 4 tabs per day PRN (Reason: pain) Qty: 12 0RF mupirocin [Centany] 2 % ointment 1 applic topical BID Qty: 22 0RF meclizine 50 mg tablet 50 mg PO QDAY Qty: 14 0RF meloxicam 7.5 mg tablet 7.5 mg PO QDAY Qty: 10 0RF Referrals: Peyton Webb PA-C [Primary Care Provider, Family Practice] - In 1 week Problem List Clinical Impression: Fall, Closed fracture of left great toe, Contusion of knee, left Patient/Caregiver Discharge Instructions Education Materials: Bone Contusion, ED Fracture, Toe, Closed Print Language: Swazi Stand Alone Forms: Caitlin Award Info., Patient Portal Info Letter PA/CLOTH CUTTER Supervising Physician PA/CLOTH CUTTER Supervising Physician: Dr. Joaquin
[2025-04-20] MEDS: KETOROLAC INJ 30 MG/ML VIAL IM (20:13)
== END 2025-04-20 21:01 | disposition home or self-care (01) ==
PROVIDERS: Emergency Provider Emergency Medicine; PCP Physician Assistant
DX: S92.425A Nondisplaced fracture of distal phalanx of left great toe, initial encounter for closed fracture (principal); S80.02XA Contusion of left knee, initial encounter; W19.XXXA Unspecified fall, initial encounter; Z96.653 Presence of artificial knee joint, bilateral
CPT/HCPCS: 73562; 73630; 96372; 99283; J1885; A9270